=== PATIENT | male | born 1945 | race Caucasian/White ===

== ENCOUNTER 2016-09-14 17:43 | Inpatient (IN) | payer OTHER ==
[~2016-09-14] VITALS: Ht 182.9 cm; Wt 105.3 kg
[~2016-09-14 17:43] MED LIST: AMIO200T4 PO; ASPCH81X PO; FISHOIL PO; FURO40TA3 PO; LISI5TAB PO; LPT/20 PO; METO100T14 PO; MULTTAB58 PO; POLY335019 PO; POTA10CA28 PO; QUET1TAB30 PO; WARF3TAB PO
[2016-09-14] MEDS ORDERED: ONDANSETRON INJ 2 MG/ML 2 ML VIAL IV STA (17:57)
[2016-09-14] MEDS ORDERED: MoRPHine SULFATE 4 MG/ML 1 ML CARP\\VIAL IV PRN (18:00)
[2016-09-14 18:31] LABS: BASO % 0.1 %; BASO ABS # 0.02 K/uL (0-0.2); COMPLETE YES; EOS % 0.1 %; HEMATOCRIT 40.6 % (42-52); IG% 0.3 %; LYMPH % 3.5 %; LYMPH ABS # 0.52 K/uL (1.2-3.4); MEAN CELL VOLUME 83.2 fL (80-100); MEAN CORPUSCULAR HEMOGLOBIN 28.5 pg (25-34); MEAN CORPUSCULAR HGB CONC 34.2 g/dl (32-36); MEAN PLATELET VOLUME 11.2 fL (7.4-10.4); MONO % 3.6 %; NEUT % 92.4 %; PLATELET COUNT 235 K/uL (130-400); RED BLOOD COUNT 4.88 M/uL (4.7-6.1); WHITE BLOOD COUNT 14.73 K/uL (4.8-10.8)
[2016-09-14 18:41] LABS: VEN BLOOD GAS BASE EXCESS 4.1 mmol/L; VENOUS BLOOD GAS PCO2 37 mmHg (38.0-50.0); VENOUS BLOOD GAS PO2 30 mmHg
[2016-09-14 18:42] LABS: VEN BLD GAS O2 SATURATION < 60.0 %
[2016-09-14 18:42] LABS: INR 3.2 (0.9-1.1); PARTIAL THROMBOPLASTIN RATIO 1.3; PROTHROMBIN TIME (PATIENT) 36.2 SECONDS (9.0-12.0)
[2016-09-14 18:49] LABS: ALT/SGPT 22 U/L (12-78); BLOOD UREA NITROGEN 16 mg/dl (7-18); BUN/CREATININE RATIO 12.1 (10-20); CALCIUM 9.1 mg/dl (8.5-10.1); CARBON DIOXIDE 30 mmol/L (21-32); CHLORIDE 101 mmol/L (98-107); GLUCOSE 144 mg/dl (70-99); MAGNESIUM 1.7 mg/dl (1.8-2.4); POTASSIUM 3.2 mmol/L (3.5-5.1); SODIUM 139 mmol/L (136-145)
--- NOTE | 2016-09-14 18:51 | DIAGNOSTIC IMAGING REPORT ---
CT HEAD WITHOUT CONTRAST (CT) CLINICAL HISTORY: Altered mental status. Weakness. COMPARISON STUDY: No previous studies for comparison. TECHNIQUE: Axial CT of the brain is performed from the vertex to the skull base. IV contrast was not administered for this examination. CT DOSE: 884.08 mGy.cm FINDINGS: No intra or extra-axial mass lesions are visualized. There is no CT evidence of acute cortical infarction. There is no evidence of midline shift. There is no acute hemorrhage. No calvarial fractures are visualized. There are patchy white matter hypodensities likely on a small vessel basis. There is no evidence of pathologic ventricular dilatation. There is minor right maxilla sinus mucosal thickening. There is no evidence of acute sinusitis. IMPRESSION: No acute intracranial findings Electronically signed by: Franko Jaramillo M.D. 09/14/2016 6:49 PM Dictated Date/Time: 09/14/2016 6:49 PM
[2016-09-14 18:58] LABS: ALKALINE PHOSPHATASE 89 U/L (45-117); AST/SGOT 19 U/L (15-37); CKMB/CK RATIO 2.7 (0-3.0); PHOSPHORUS 1.7 mg/dl (2.5-4.9); THYROID STIMULATING HORMONE 0.956 uIu/ml (0.300-4.500)
[2016-09-14] MEDS ORDERED: CRD200 PO (19:02)
[2016-09-14] MEDS ORDERED: POTA-65 PO (19:02)
[2016-09-14] MEDS ORDERED: WARF-285 PO ×2 (19:02)
[2016-09-14] MEDS ORDERED: LSN5 PO (19:02)
[2016-09-14] MEDS ORDERED: LSX40 PO (19:02)
[2016-09-14] MEDS ORDERED: MRLP527 PO (19:02)
[2016-09-14] MEDS ORDERED: [UNRECOGNIZED DRUG - CODE] PO (19:02)
[2016-09-14] MEDS ORDERED: AMOX500C3 PO (19:02)
[2016-09-14] MEDS ORDERED: QUET5TAB PO (19:02)
[2016-09-14] MEDS ORDERED: LEVO25TA5 PO (19:02)
[2016-09-14] MEDS ORDERED: OMEGCAP2 PO (19:04)
[2016-09-14] MEDS ORDERED: MAGNESIUM SULFATE 1GM / D5W 1 GM BAG IV STA (19:13)
[2016-09-14] MEDS ORDERED: LEVAQUIN 750MG / 150ML D5W IV STA (19:13)
--- NOTE | 2016-09-14 19:30 | DIAGNOSTIC IMAGING REPORT ---
CHEST ONE VIEW PORTABLE CLINICAL HISTORY: Altered mental status. Weakness. Vomiting. COMPARISON STUDY: 03/28/2016 FINDINGS: The heart is enlarged. There is aortic tortuosity/ectasia. There are progressive bibasal airspace opacities. Mild pulmonary vascular congestion[ is suspected. Trace pleural effusions are suspected IMPRESSION: 1. Cardiomegaly and mild pulmonary vascular congestion 2. Progressive bibasal airspace opacities. Electronically signed by: Franko Jaramillo M.D. 09/14/2016 7:29 PM Dictated Date/Time: 09/14/2016 7:27 PM
[2016-09-14] MEDS ORDERED: SODIUM CHLORIDE 0.9% 1000ML 1,000 ML IV STA (19:32)
--- NOTE | 2016-09-14 19:34 | DIAGNOSTIC IMAGING REPORT ---
KUB CLINICAL HISTORY: vomiting WEAKNESS COMPARISON STUDY: No previous studies for comparison. FINDINGS: There is gaseous distention of what probably represents the sigmoid colon. There is mild fecal retention. There is no conventional radiographic evidence of a high-grade bowel obstruction. There are left basilar airspace opacities. There is a small right pleural effusion. IMPRESSION: Gaseous distention what is probably the sigmoid colon measuring up to 9.6 cm in diameter. Electronically signed by: Franko Jaramillo M.D. 09/14/2016 7:33 PM Dictated Date/Time: 09/14/2016 7:30 PM
[2016-09-14 20:35] LABS: INFLUENZA A PCR Neg for Influ A (NEG); INFLUENZA B PCR Neg for Influ B (NEG)
--- NOTE | 2016-09-14 20:43 | History and Physical ---
History & Physical Date & Time of Service: Sep 14, 2016 at 20:24 Chief Complaint: Vomiting Primary Care Physician: Emigdio Lao M.D. History of Present Illness Source: patient, spouse 71 yo M with PAF on coumadin, CAD and HTN who presents with one week of generalized weakness and cough with worsening fatigue this morning that progressed throughout the day today. Today he developed fevers, chills, nausea and vomiting that was intermittent, shortness of breath and headache. 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 He denies any diarrhea and currently says the BAUTISTA is gone and he is feeling better. In the ER his vitals were 198/115, P 95, RR 21 satting 93% on 3L NC. He states that he did take his BP pills today. He also is not on oxygen typically and during triage was found to be hypoxic at 85% on room air. CXR is consistent with pneumonia. He also reports a medication change--started Synthroid two weeks ago. Past Medical/Surgical History Medical Problems: (1) Atrial fibrillation Status: Chronic (2) BPH (benign prostatic hypertrophy) Status: Chronic (3) CAD (coronary artery disease) Status: Chronic (4) External hemorrhoids Status: Chronic (5) Hemangioma of liver Status: Chronic (6) Hemorrhagic Stroke Status: Resolved (7) Hemorrhoidectomy Status: Resolved (8) HTN (hypertension) Status: Chronic (9) Hyperlipidemia Status: Chronic (10) Hypothyroidism Status: Chronic (11) PAF (paroxysmal atrial fibrillation) Status: Chronic (12) Sleep disorder Status: Chronic Surgical Problems: (1) History of aortic root repair Status: Resolved (2) History of prostate surgery Status: Resolved Family History Diabetes mellitus Heart disease Hypertension Father of electrolyte abnormality, mother from complications of DMII Social History Smoking Status: Former Smoker Smokeless Tobacco Use: Unknown Alcohol Use: socially Drug Use: none Marital Status: Housing status: lives with significant other Occupational Status: retired Immunizations History of Influenza Vaccine: No History of Tetanus Vaccine?: Yes Tetanus Immunization Date: Jul 21, 2009 History of Pneumococcal: Yes Pneumococcal Date: Aug 07, 2012 History of Hepatitis B Vaccine: No Multi-Drug Resistant Organisms History of MDRO: No Allergies Coded Allergies: No Known Allergies (Unverified , 09/14/16) Home Medications Scheduled Amiodarone HCl (Amiodarone HCl), 200 MG PO DAILY Aspirin (Aspirin Low Dose), 162 MG PO DAILY Atorvastatin (Atorvastatin Calcium), 20 MG PO DAILY Furosemide (Furosemide), 40 MG PO DAILY Levothyroxine Sodium (Levothyroxine Sodium), 25 MCG PO DAILY Lisinopril (Lisinopril), 5 MG PO DAILY Metoprolol Tartrate (Lopressor) (Lopressor), 100 MG PO BID Multiple Vitamin (Multivitamin), 1 TABLET PO DAILY [place]ow-3 Fatty Acids (Fish Oil), 1 CAP PO DAILY Potassium Chloride (Potassium Chloride ER), 10 MEQ PO BID Quetiapine Fumarate (Seroquel), 50 MG PO HS Warfarin Sodium (Warfarin Sodium), 3 MG PO 5XWK Warfarin Sodium (Warfarin Sodium), 1.5 MG PO 2XWK Scheduled PRN Amoxicillin (Amoxil), 2,000 MG PO UD PRN for Dental Appointment Polyethylene (Polyethylene Glycol 3350), 17 GM PO DAILY PRN for Constipation Review of Systems All reviewed and negative except as indicated in HPI. Physical Exam Vital Signs Date Time Temp Pulse Resp B/P Pulse Ox O2 Delivery O2 Flow Rate FiO2 09/14/16 18:50 95 21 178/101 93 Nasal Cannula 3.0 09/14/16 18:21 92 Nasal Cannula 3.0 09/14/16 18:20 85 Room Air 09/14/16 18:10 88 09/14/16 17:47 37.9 100 24 198/115 90 Room Air GEN: WNWD, in no acute distress, alert and appropriate, oxygen in place, no conversational dyspnea or use of accessory respiratory muscles to breathe HEENT: NC/AT, PERRL, normal sclerae, pharynx nonacute, no cervical LAD CARDIO: reg rate, S1/2 heard without m/g/r LUNGS: CTA bilaterally, rhonchi at bases bilaterally, no rales or wheezes, good diaphragmatic excursion ABD: soft, non-tender, non-distended, no rebound or guarding, +BS EXTREMITY: no LE swelling or edema, extremities are warm and well-perfused NEURO: CN 2-12 grossly intact, sensation intact throughout MUSC: 5/5 strength throughout, no gross focal deficits SKIN: warm and dry Diagnostics Laboratory Results Results Past 24 Hours Test 09/14/16 18:14 09/14/16 18:18 09/14/16 18:23 09/14/16 18:28 Range/Units Bedside Glucose 124 70-99 mg/dl White Blood Count 14.73 4.8-10.8 K/uL Red Blood Count 4.88 4.7-6.1 M/uL Hemoglobin 13.9 14.0-18.0 g/dL Hematocrit 40.6 42-52 % Mean Corpuscular Volume 83.2 80-100 fL Mean Corpuscular Hemoglobin 28.5 25-34 pg Mean Corpuscular Hemoglobin Concent 34.2 32-36 g/dl Platelet Count 235 130-400 K/uL Mean Platelet Volume 11.2 7.4-10.4 fL Neutrophils (%) (Auto) 92.4 % Lymphocytes (%) (Auto) 3.5 % Monocytes (%) (Auto) 3.6 % Eosinophils (%) (Auto) 0.1 % Basophils (%) (Auto) 0.1 % Neutrophils # (Auto) 13.60 1.4-6.5 K/uL Lymphocytes # (Auto) 0.52 1.2-3.4 K/uL Monocytes # (Auto) 0.53 0.11-0.59 K/uL Eosinophils # (Auto) 0.01 0-0.5 K/uL Basophils # (Auto) 0.02 0-0.2 K/uL RDW Standard Deviation 45.9 36.4-46.3 fL RDW Coefficient of Variation 15.0 11.5-14.5 % Immature Granulocyte % (Auto) 0.3 % Immature Granulocyte # (Auto) 0.05 0.00-0.02 K/uL Prothrombin Time 36.2 9.0-12.0 SECONDS Prothromb Time International Ratio 3.2 0.9-1.1 Activated Partial Thromboplast Time 32.5 21.0-31.0 SECONDS Partial Thromboplastin Ratio 1.3 Sodium Level 139 136-145 mmol/L Potassium Level 3.2 3.5-5.1 mmol/L Chloride Level 101 98-107 mmol/L Carbon Dioxide Level 30 21-32 mmol/L Anion Gap 8.0 3-11 mmol/L Blood Urea Nitrogen 16 7-18 mg/dl Creatinine 1.30 0.60-1.40 mg/dl Est Creatinine Clear Calc Drug Dose 64.0 ml/min Estimated GFR () 62.7 Estimated GFR (Non- 54.1 BUN/Creatinine Ratio 12.1 10-20 Random Glucose 144 70-99 mg/dl Calcium Level 9.1 8.5-10.1 mg/dl Phosphorus Level 1.7 2.5-4.9 mg/dl Magnesium Level 1.7 1.8-2.4 mg/dl Total Bilirubin 0.6 0.2-1 mg/dl Direct Bilirubin 0.2 0-0.2 mg/dl Aspartate Amino Transf (AST/SGOT) 19 15-37 U/L Alanine Aminotransferase (ALT/SGPT) 22 12-78 U/L Alkaline Phosphatase 89 45-117 U/L Total Creatine Kinase 86 39-308 U/L Creatine Kinase MB 2.3 0.5-3.6 ng/ml Creatine Kinase MB Ratio 2.7 0-3.0 Troponin I < 0.015 0-0.045 ng/ml Pro-B-Type Natriuretic Peptide 904 0-900 pg/ml Total Protein 7.3 6.4-8.2 gm/dl Albumin 3.9 3.4-5.0 gm/dl Lipase 99 73-393 U/L Thyroid Stimulating Hormone (TSH) 0.956 0.300-4.500 uIu/ml Bedside Lactic Acid Venous 2.04 0.90-1.70 mmol/L Venous Blood pH 7.49 7.36-7.41 Venous Blood Partial Pressure CO2 37 38.0-50.0 mmHg Venous Blood Partial Pressure O2 30 mmHg Venous Blood HCO3 27 mmol/L Venous Blood Oxygen Saturation < 60.0 % Venous Blood Base Excess 4.1 mmol/L Test 09/14/16 18:30 Range/Units Influenza Type A Antigen Neg for Influ A NEG Influenza Type B Antigen Neg for Influ B NEG Microbiology Results 09/14/16 Blood Culture, Received Pending 09/14/16 Blood Culture, Received Pending Diagnostic Radiology CXR: IMPRESSION: 1. Cardiomegaly and mild pulmonary vascular congestion 2. Progressive bibasal airspace opacities. CT head without contrast: IMPRESSION: No acute intracranial findings KUB: IMPRESSION: Gaseous distention what is probably the sigmoid colon measuring up to 9.6 cm in diameter. EKG SR, 1AVB, no ST changes Impression Assessment and Plan 71 yoM with 1 week of progressive weakness and cough with worsening of symptoms today. Clinical picture consistent with sepsis 2/2 pneumonia 1. CAP- Sepsis criteria met, s/p resuscitation and feeling better in ER. Lactate >2, will trend in 6 hours. Cont IVF as patient appears clinically dry. Levaquin started in ER and will be continued. Supportive care with antiemetics and antipyretics as needed. Monitor on tele. flu PCR pending 2. Electrolyte abnormalities- 2.2 acute illness. Of note, father " from electrolyte issues". Will replace Phos, Mg and K at this time and repeat PRP in am. 3. Hypertensive urgency-patient reports taking his BP meds today. May be related to stress of being admitted. Will support with IV hydralazine at this time, and cont PO meds in am. 4. Acute gastritis-vomiting may be related to pneumonia, however, he did mention some vomiting last week so may be a separate process. Possible aspiration causing current pneumonia?. Consider changing abx for more anaerobe coverage if patient doesn't improve on current therapy. 5. PAF-cont coumadin, supratherapeutic INR at this time. Trend INR 6. CAD 7. Sleep disorder-cont Seroquel 8. Hypothroidism-cont Synthroid DVT proph-coumadin Full Code Dispo-to tele floor Miladys Rowe, Hospitalist Level of Care Telemetry Resuscitation Status FULL RESUSCITATION VTE Prophylaxis VTE Risk Assessment Done? Y/N: Yes Risk Level: Moderate Given or contraindicated: Warfarin (Coumadin)
[2016-09-14] MEDS ORDERED: INFLUENZA VIRUS QUAD VACCINE 0.5 ML SYR IM. ONE ×2 (20:45→22:30)
[2016-09-14] MEDS ORDERED: POLYETHYLENE (MIRALAX) 17 GM PACK PO PRN (20:45)
[2016-09-14] MEDS ORDERED: ACETAMINOPHEN 325 MG TAB PO PRN (20:45)
[2016-09-14] MEDS ORDERED: ONDANSETRON INJ 2 MG/ML 2 ML VIAL IV PRN (20:45)
[2016-09-14] MEDS ORDERED: POTASSIUM CHLORIDE 20 MEQ/15 ML UDC PO STA (20:50)
[2016-09-14] MEDS ORDERED: HydrALAZINE HCL 20 MG/ML VIAL IV. PRN (21:00)
--- NOTE | 2016-09-14 21:02 | Progress Note ---
Progress Note Post Crystalloid Evaluation Date: Sep 14, 2016 Time: 20:58 Subjective 71 yo man with one week of progressive SOB and cough, with worsening of symptoms today including vomiting, fevers, chills and SOB. Physical Exam Vital Signs: Vital Signs Date Time Temp Pulse Resp B/P Pulse Ox O2 Delivery O2 Flow Rate FiO2 09/14/16 18:50 95 21 178/101 93 Nasal Cannula 3.0 09/14/16 17:47 37.9 Lungs: chest non-tender, no respiratory distress, no accessory muscle use, + rhonchi, + pertinent finding (requiring 3L via NC) Heart: regular rate, rhythm, no edema, no gallop, no JVD, no murmur Peripheral Pulse: Normal Assessment & Plan CAP -IVF resuscitation in ER -Levaquin started -patient feeling improved. -lactate >2 so will trend in 6 hours with continued IVF -lyte abnormalities--will give replacement now -procalcitonin pending -flu pending -sputum and blood cultures pending -Duonebs for comfort as needed. -monitor on telemetry while hypoxic Miladys Rowe DO Hospitalist
[2016-09-14] MEDS ORDERED: HydrALAZINE HCL 20 MG/ML VIAL IV. STA (21:10)
[2016-09-14] MEDS ORDERED: POTASSIUM PHOSPHATE IV SCH ×4 (22:00)
[2016-09-14] MEDS ORDERED: [UNRECOGNIZED DRUG - OTHER] IV SCH ×4 (22:00)
[2016-09-14] MEDS ORDERED: MAG SULFATE IV SCH ×4 (22:00)
[2016-09-14 22:21] VITALS: BP 149/84; PULSE 92; TEMP 37.3; O2SAT 93; Ht 182.9 cm; Wt 105.3 kg
[2016-09-14] MEDS ORDERED: INFLUENZA ADMINISTRATION CHARGE ONE (22:30)
[2016-09-14 23:19] VITALS: BP 123/79; PULSE 87; TEMP 37.1; O2SAT 95
[2016-09-14] MEDS: METOPROLOL TARTRATE 100 MG TAB PO SCH (23:34)
[2016-09-14] MEDS: QUETIAPINE FUMARATE 25 MG TAB PO SCH (23:34)
[2016-09-14] MEDS: POTASSIUM CHLORIDE 10 MEQ TABCR PO SCH (23:34)
[2016-09-15] VITALS (12 sets, daily range): BP systolic 95–149; BP diastolic 59–86; PULSE 59–76; TEMP 36.4–37; O2SAT 92–98
[2016-09-15] MEDS: LEVOTHYROXINE 25 MCG TAB PO SCH (06:03)
[2016-09-15 06:14] LABS: BASO % 0.1 %; BASO ABS # 0.02 K/uL (0-0.2); COMPLETE YES; EOS % 0.1 %; HEMATOCRIT 36.2 % (42-52); IG% 0.2 %; LYMPH % 4.7 %; LYMPH ABS # 0.75 K/uL (1.2-3.4); MEAN CELL VOLUME 84.4 fL (80-100); MEAN CORPUSCULAR HEMOGLOBIN 28.2 pg (25-34); MEAN CORPUSCULAR HGB CONC 33.4 g/dl (32-36); MEAN PLATELET VOLUME 11.2 fL (7.4-10.4); MONO % 6.9 %; PLATELET COUNT 176 K/uL (130-400); RED BLOOD COUNT 4.29 M/uL (4.7-6.1); WHITE BLOOD COUNT 15.97 K/uL (4.8-10.8)
[2016-09-15 06:21] LABS: INR 3.4 (0.9-1.1); PROTHROMBIN TIME (PATIENT) 37.8 SECONDS (9.0-12.0)
[2016-09-15] MEDS ORDERED: SODIUM CHLORIDE 0.9% 1000ML 1,000 ML IV SCH (06:36)
[2016-09-15 06:51] LABS: BUN/CREATININE RATIO 14.4 (10-20); CREATININE 1.1 mg/dl (0.60-1.40); MAGNESIUM 2.9 mg/dl (1.8-2.4); POTASSIUM 4.6 mmol/L (3.5-5.1)
[2016-09-15 06:52] LABS: PHOSPHORUS 4.1 mg/dl (2.5-4.9)
[2016-09-15] MEDS: ALBUT/IPRATROP 3MG/0.5MG NEB 3 ML VIAL INH SCH ×4 (07:20→20:35)
[2016-09-15] MEDS: ASPIRIN 81 MG ECTAB PO SCH (07:52)
[2016-09-15] MEDS: AMIODARONE 200 MG TAB PO SCH (07:52)
[2016-09-15] MEDS: METOPROLOL TARTRATE 100 MG TAB PO SCH ×2 (07:53→19:49)
[2016-09-15] MEDS: OMEGA-3 (PURIFIED FISH OIL) 1 GM CAP PO SCH (07:53)
[2016-09-15] MEDS: POTASSIUM CHLORIDE 10 MEQ TABCR PO SCH ×2 (07:53→19:49)
[2016-09-15] MEDS: MULTIVITAMIN TAB PO SCH (07:53)
[2016-09-15] MEDS: LISINOPRIL 5 MG TAB PO SCH (07:55)
[2016-09-15] MEDS ORDERED: NURSING VERBAL MED ORDER ONE (09:00)
[2016-09-15] MEDS ORDERED: ATORVASTATIN 20 MG TAB PO SCH ×2 (09:00→21:00)
[2016-09-15 09:45] LABS: URINE APPEARANCE CLOUDY (CLEAR); URINE BILIRUBIN NEG (NEG); URINE COLOR YELLOW; URINE NITRITE NEG (NEG); URINE SPECIFIC GRAVITY 1.019 (1.000-1.030); UROBILINOGEN NEG (NEG)
[2016-09-15 09:46] LABS: MANUAL MICROSCOPIC REQUIRED? NO; REVIEW REQ? NO
--- NOTE | 2016-09-15 15:35 | Progress Note ---
Internal Med Progress Note Date of Service: Sep 15, 2016. Provider Documentation: SUBJECTIVE: The patient was seen and examined Feels a lot better since admission Complains of moderate Cough No wheezing OBJECTIVE: Vital Signs-as noted below Exam: General-no distress at rest Eyes-normal ENT-normal Neck-supple Lungs-Decreased breath sound bilaterally Minimal wheezing Heart-regular Abdomen-Benign,no masses Extremities-No edema Neuro-AAox3 No focal neuro deficit Lab data as noted below. ASSESSMENT & PLAN: CAP Met Sepsis criteria on Admission Received Fluid Resuscitation and lactate measurement as per the protocol Feels a lot better On IV Levaquin Nebs Negative for Flu Sputum culture pending Electrolyte abnormalities- 2.2 acute illness. Replacement given Normalized Hypertensive urgency IV hydralazine at this time, and cont PO meds in am. BP is on the lower side Acute gastritis-vomiting may be related to pneumonia, PPI No more vomiting PAF-cont Coumadin, subtherapeutic INR at this time. Trend INR CAD No acute issue Sleep disorder-cont Seroquel Hypothyroidism-cont Synthroid DVT proph-Coumadin Full Code DISPOSITION awaited Vital Signs: Date Time Temp Pulse Resp B/P Pulse Ox O2 Delivery O2 Flow Rate FiO2 09/15/16 14:48 59 18 96 Room Air 09/15/16 12:00 Nasal Cannula 3.0 09/15/16 12:00 36.9 61 18 95/59 92 Nasal Cannula 2.0 09/15/16 11:32 60 18 97 Nasal Cannula 2.0 09/15/16 10:54 76 94 09/15/16 08:00 Nasal Cannula 3.0 09/15/16 08:00 36.5 67 16 137/79 95 Nasal Cannula 3.0 09/15/16 07:20 65 18 98 Nasal Cannula 3.0 09/15/16 04:53 37.0 68 20 149/86 97 Nasal Cannula 3.0 09/15/16 04:45 37.0 68 20 149/86 98 Nasal Cannula 3.0 09/15/16 04:00 Nasal Cannula 3.0 09/15/16 00:00 Nasal Cannula 3.0 09/14/16 23:19 37.1 87 20 123/79 95 Room Air 3.0 09/14/16 22:21 37.3 92 18 149/84 93 Nasal Cannula 3.0 09/14/16 20:50 80 18 138/84 96 Nasal Cannula 3.0 09/14/16 18:50 95 21 178/101 93 Nasal Cannula 3.0 09/14/16 18:21 92 Nasal Cannula 3.0 09/14/16 18:20 85 Room Air 09/14/16 18:10 88 09/14/16 17:47 37.9 100 24 198/115 90 Room Air Lab Results: Results Past 24 Hours Test 09/14/16 18:14 09/14/16 18:18 09/14/16 18:23 09/14/16 18:28 Range/Units Bedside Glucose 124 70-99 mg/dl White Blood Count 14.73 4.8-10.8 K/uL Red Blood Count 4.88 4.7-6.1 M/uL Hemoglobin 13.9 14.0-18.0 g/dL Hematocrit 40.6 42-52 % Mean Corpuscular Volume 83.2 80-100 fL Mean Corpuscular Hemoglobin 28.5 25-34 pg Mean Corpuscular Hemoglobin Concent 34.2 32-36 g/dl Platelet Count 235 130-400 K/uL Mean Platelet Volume 11.2 7.4-10.4 fL Neutrophils (%) (Auto) 92.4 % Lymphocytes (%) (Auto) 3.5 % Monocytes (%) (Auto) 3.6 % Eosinophils (%) (Auto) 0.1 % Basophils (%) (Auto) 0.1 % Neutrophils # (Auto) 13.60 1.4-6.5 K/uL Lymphocytes # (Auto) 0.52 1.2-3.4 K/uL Monocytes # (Auto) 0.53 0.11-0.59 K/uL Eosinophils # (Auto) 0.01 0-0.5 K/uL Basophils # (Auto) 0.02 0-0.2 K/uL RDW Standard Deviation 45.9 36.4-46.3 fL RDW Coefficient of Variation 15.0 11.5-14.5 % Immature Granulocyte % (Auto) 0.3 % Immature Granulocyte # (Auto) 0.05 0.00-0.02 K/uL Prothrombin Time 36.2 9.0-12.0 SECONDS Prothromb Time International Ratio 3.2 0.9-1.1 Activated Partial Thromboplast Time 32.5 21.0-31.0 SECONDS Partial Thromboplastin Ratio 1.3 Sodium Level 139 136-145 mmol/L Potassium Level 3.2 3.5-5.1 mmol/L Chloride Level 101 98-107 mmol/L Carbon Dioxide Level 30 21-32 mmol/L Anion Gap 8.0 3-11 mmol/L Blood Urea Nitrogen 16 7-18 mg/dl Creatinine 1.30 0.60-1.40 mg/dl Est Creatinine Clear Calc Drug Dose 64.0 ml/min Estimated GFR () 62.7 Estimated GFR (Non- 54.1 BUN/Creatinine Ratio 12.1 10-20 Random Glucose 144 70-99 mg/dl Calcium Level 9.1 8.5-10.1 mg/dl Phosphorus Level 1.7 2.5-4.9 mg/dl Magnesium Level 1.7 1.8-2.4 mg/dl Total Bilirubin 0.6 0.2-1 mg/dl Direct Bilirubin 0.2 0-0.2 mg/dl Aspartate Amino Transf (AST/SGOT) 19 15-37 U/L Alanine Aminotransferase (ALT/SGPT) 22 12-78 U/L Alkaline Phosphatase 89 45-117 U/L Total Creatine Kinase 86 39-308 U/L Creatine Kinase MB 2.3 0.5-3.6 ng/ml Creatine Kinase MB Ratio 2.7 0-3.0 Troponin I < 0.015 0-0.045 ng/ml Pro-B-Type Natriuretic Peptide 904 0-900 pg/ml Total Protein 7.3 6.4-8.2 gm/dl Albumin 3.9 3.4-5.0 gm/dl Lipase 99 73-393 U/L Thyroid Stimulating Hormone (TSH) 0.956 0.300-4.500 uIu/ml Bedside Lactic Acid Venous 2.04 0.90-1.70 mmol/L Venous Blood pH 7.49 7.36-7.41 Venous Blood Partial Pressure CO2 37 38.0-50.0 mmHg Venous Blood Partial Pressure O2 30 mmHg Venous Blood HCO3 27 mmol/L Venous Blood Oxygen Saturation < 60.0 % Venous Blood Base Excess 4.1 mmol/L Test 09/14/16 18:30 09/14/16 23:24 09/15/16 06:03 09/15/16 09:30 Range/Units Influenza Type A (RT-PCR) Neg for Influ A NEG Influenza Type A Antigen Neg for Influ A NEG Influenza Type B Antigen Neg for Influ B NEG Influenza Type B (RT-PCR) Neg for Influ B NEG Lactic Acid Level 1.4 0.4-2.0 mmol/L White Blood Count 15.97 4.8-10.8 K/uL Red Blood Count 4.29 4.7-6.1 M/uL Hemoglobin 12.1 14.0-18.0 g/dL Hematocrit 36.2 42-52 % Mean Corpuscular Volume 84.4 80-100 fL Mean Corpuscular Hemoglobin 28.2 25-34 pg Mean Corpuscular Hemoglobin Concent 33.4 32-36 g/dl Platelet Count 176 130-400 K/uL Mean Platelet Volume 11.2 7.4-10.4 fL Neutrophils (%) (Auto) 88.0 % Lymphocytes (%) (Auto) 4.7 % Monocytes (%) (Auto) 6.9 % Eosinophils (%) (Auto) 0.1 % Basophils (%) (Auto) 0.1 % Neutrophils # (Auto) 14.06 1.4-6.5 K/uL Lymphocytes # (Auto) 0.75 1.2-3.4 K/uL Monocytes # (Auto) 1.10 0.11-0.59 K/uL Eosinophils # (Auto) 0.01 0-0.5 K/uL Basophils # (Auto) 0.02 0-0.2 K/uL RDW Standard Deviation 48.0 36.4-46.3 fL RDW Coefficient of Variation 15.5 11.5-14.5 % Immature Granulocyte % (Auto) 0.2 % Immature Granulocyte # (Auto) 0.03 0.00-0.02 K/uL Prothrombin Time 37.8 9.0-12.0 SECONDS Prothromb Time International Ratio 3.4 0.9-1.1 Sodium Level 143 136-145 mmol/L Potassium Level 4.6 3.5-5.1 mmol/L Chloride Level 108 98-107 mmol/L Carbon Dioxide Level 27 21-32 mmol/L Anion Gap 8.0 3-11 mmol/L Blood Urea Nitrogen 16 7-18 mg/dl Creatinine 1.10 0.60-1.40 mg/dl Est Creatinine Clear Calc Drug Dose 74.9 ml/min Estimated GFR () 76.8 Estimated GFR (Non- 66.2 BUN/Creatinine Ratio 14.4 10-20 Random Glucose 101 70-99 mg/dl Calcium Level 8.0 8.5-10.1 mg/dl Phosphorus Level 4.1 2.5-4.9 mg/dl Magnesium Level 2.9 1.8-2.4 mg/dl Urine Color YELLOW Urine Appearance CLOUDY CLEAR Urine pH 6.0 4.5-7.5 Urine Specific [place] 1.019 1.000-1.030 Urine Protein NEG NEG Urine Glucose (UA) NEG NEG Urine Ketones NEG NEG Urine Occult Blood NEG NEG Urine Nitrite NEG NEG Urine Bilirubin NEG NEG Urine Urobilinogen NEG NEG Urine Leukocyte Esterase NEG NEG Urine WBC (Auto) 1-5 0-5 /hpf Urine RBC (Auto) 0-4 0-4 /hpf Urine Hyaline Casts (Auto) 0 0-5 /lpf Urine Epithelial Cells (Auto) 5-10 0-5 /lpf Urine Bacteria (Auto) NEG NEG Microbiology Results 09/14/16 Blood Culture, Received Pending 09/14/16 Blood Culture, Received Pending 09/15/16 Gram Stain - Final, Resulted 09/15/16 Sputum Culture, Resulted Pending
[2016-09-15] MEDS: WARFARIN SOD 3 MG TAB PO SCH (15:48)
--- NOTE | 2016-09-15 16:27 | EMERGENCY ROOM VISIT NOTE ---
History Report prepared by Linus: Shante Goddard Under the Supervision of: Dr. Asaf Kaufman D.O. First contact with patient: 17:53 Chief Complaint: VOMITING Stated Complaint: VOMITING Nursing Triage Summary: Pt c/o n/v SOB x "an hour or so" History of Present Illness The patient is a 71 year old male who presents to the Emergency Room via significant other with complaints of worsening shortness of breath that began two hours ago. This afternoon, the patient started to have a sudden headache, feeling as if his head would "explode." His headache was towards the front of his head, and he relates that he has had similar headaches in the past. He tried lying on the couch, when he felt as if he was very short of breath and could not breathe. The patient describes that he had to take very deep breaths. The patient vomited on his way to the hospital. The patient has had some pain in his legs. One day ago, he noticed that he had a fever. He states that movement makes his dizziness worse. The patient has a history of chronic bloody stools. The patient denies falling down, hitting his head, chest pain, swelling in his legs, a history of smoking. He notes that he has a history of heart attack, open heart surgery, and that he takes Warfarin. Source of History: patient Onset: 2 hours ago Position: chest Quality: other (shortnes of breath) Timing: worsening Modifying Factors (Worsening): movement Associated Symptoms: + cough, + fevers (one day ago ), + headache, + vomiting, No chest pain Note: The patient has had some pain in his legs. The patient denies falling down, hitting his head, swelling in his legs. Review of Systems See HPI for pertinent positives & negatives. A total of 10 systems reviewed and were otherwise negative. Past Medical & Surgical Medical Problems: (1) Atrial fibrillation (2) BPH (benign prostatic hypertrophy) (3) CAD (coronary artery disease) (4) Community acquired pneumonia (5) External hemorrhoids (6) Hemangioma of liver (7) Hemorrhagic Stroke (8) Hemorrhoidectomy (9) HTN (hypertension) (10) Hyperlipidemia (11) Hypothyroidism (12) PAF (paroxysmal atrial fibrillation) (13) Sleep disorder Surgical Problems: (1) History of aortic root repair (2) History of prostate surgery Family History Diabetes mellitus Heart disease Hypertension Social History Smoking Status: Former Smoker Alcohol Use: occasionally Marital Status: Housing Status: lives with family Occupation Status: retired Current/Historical Medications Scheduled Amiodarone HCl (Amiodarone HCl), 200 MG PO DAILY Aspirin (Aspirin Low Dose), 162 MG PO DAILY Atorvastatin (Atorvastatin Calcium), 20 MG PO DAILY Furosemide (Furosemide), 40 MG PO DAILY Levothyroxine Sodium (Levothyroxine Sodium), 25 MCG PO DAILY Lisinopril (Lisinopril), 5 MG PO DAILY Metoprolol Tartrate (Lopressor) (Lopressor), 100 MG PO BID Multiple Vitamin (Multivitamin), 1 TABLET PO DAILY [place]-3 Fatty Acids (Fish Oil), 1 CAP PO DAILY Potassium Chloride (Potassium Chloride ER), 10 MEQ PO BID Quetiapine Fumarate (Seroquel), 50 MG PO HS Warfarin Sodium (Warfarin Sodium), 3 MG PO 5XWK Warfarin Sodium (Warfarin Sodium), 1.5 MG PO 2XWK Scheduled PRN Amoxicillin (Amoxil), 2,000 MG PO UD PRN for Dental Appointment Polyethylene (Polyethylene Glycol 3350), 17 GM PO DAILY PRN for Constipation Allergies Coded Allergies: No Known Allergies (Unverified , 09/14/16) Physical Exam Vital Signs Date Time Temp Pulse Resp B/P Pulse Ox O2 Delivery O2 Flow Rate FiO2 09/14/16 18:50 95 21 178/101 93 Nasal Cannula 3.0 09/14/16 18:21 92 Nasal Cannula 3.0 09/14/16 18:20 85 Room Air 09/14/16 18:10 88 09/14/16 17:47 37.9 100 24 198/115 90 Room Air Physical Exam GENERAL: Patient is awake alert, very anxious and uncomfortable appearing, appears to be in significant pain. EYES: The conjunctivae are clear. The pupils are round and reactive. EARS, NOSE, MOUTH AND THROAT: The nose is without any evidence of any deformity. Mucous membranes are moist tongue is midline NECK: The neck is nontender and supple. RESPIRATORY: Lung sounds are diminished throughout, scattered rhonchi and rales noted, no conversational dyspnea was noted. CARDIOVASCULAR: Regular rate and rhythm noted to auscultation, systolic murmur noted. GASTROINTESTINAL: The abdomen is soft. Bowel sounds are present in all quadrants. Abdomen is nontender MUSCULOSKELETAL/EXTREMITIES: There is no evidence of gross deformity full range of motion is noted in the hips and shoulders, pedal edema bilaterally in the lower extremities SKIN: There is no obvious evidence of any rash. There are no petechiae, pallor or cyanosis noted. NEUROLOGIC: Patient is awake alert and oriented x3, no drift was noted in the lower extremities. Medical Decision & Procedures ER Provider Diagnostic Interpretation: Radiology results as stated below per my review and radiologist interpretation: CT HEAD WITHOUT CONTRAST (CT) CLINICAL HISTORY: Altered mental status. Weakness. COMPARISON STUDY: No previous studies for comparison. TECHNIQUE: Axial CT of the brain is performed from the vertex to the skull base. IV contrast was not administered for this examination. CT DOSE: 884.08 mGy.cm FINDINGS: No intra or extra-axial mass lesions are visualized. There is no CT evidence of acute cortical infarction. There is no evidence of midline shift. There is no acute hemorrhage. No calvarial fractures are visualized. There are patchy white matter hypodensities likely on a small vessel basis. There is no evidence of pathologic ventricular dilatation. There is minor right maxilla sinus mucosal thickening. There is no evidence of acute sinusitis. IMPRESSION: No acute intracranial findings Electronically signed by: Franko Jaramillo M.D. 09/14/2016 6:49 PM Dictated Date/Time: 09/14/2016 6:49 PM KUB CLINICAL HISTORY: vomiting WEAKNESS COMPARISON STUDY: No previous studies for comparison. FINDINGS: There is gaseous distention of what probably represents the sigmoid colon. There is mild fecal retention. There is no conventional radiographic evidence of a high-grade bowel obstruction. There are left basilar airspace opacities. There is a small right pleural effusion. IMPRESSION: Gaseous distention what is probably the sigmoid colon measuring up to 9.6 cm in diameter. Electronically signed by: Franko Jaramillo M.D. 09/14/2016 7:33 PM Dictated Date/Time: 09/14/2016 7:30 PM CHEST ONE VIEW PORTABLE CLINICAL HISTORY: Altered mental status. Weakness. Vomiting. COMPARISON STUDY: 03/28/2016 FINDINGS: The heart is enlarged. There is aortic tortuosity/ectasia. There are progressive bibasal airspace opacities. Mild pulmonary vascular congestion[ is suspected. Trace pleural effusions are suspected IMPRESSION: 1. Cardiomegaly and mild pulmonary vascular congestion 2. Progressive bibasal airspace opacities. Electronically signed by: Franko Jaramillo M.D. 09/14/2016 7:29 PM Dictated Date/Time: 09/14/2016 7:27 PM Laboratory Results Test 09/14/16 18:14 09/14/16 18:18 09/14/16 18:23 09/14/16 18:28 Bedside Glucose 124 mg/dl (70-99) Activated Partial Thromboplast Time 32.5 SECONDS (21.0-31.0) Partial Thromboplastin Ratio 1.3 Total Bilirubin 0.6 mg/dl (0.2-1) Direct Bilirubin 0.2 mg/dl (0-0.2) Aspartate Amino Transf (AST/SGOT) 19 U/L (15-37) Alanine Aminotransferase (ALT/SGPT) 22 U/L (12-78) Alkaline Phosphatase 89 U/L (45-117) Total Creatine Kinase 86 U/L (39-308) Creatine Kinase MB 2.3 ng/ml (0.5-3.6) Creatine Kinase MB Ratio 2.7 (0-3.0) Troponin I < 0.015 ng/ml (0-0.045) Pro-B-Type Natriuretic Peptide 904 pg/ml (0-900) Total Protein 7.3 gm/dl (6.4-8.2) Albumin 3.9 gm/dl (3.4-5.0) Lipase 99 U/L (73-393) Thyroid Stimulating Hormone (TSH) 0.956 uIu/ml (0.300-4.500) Bedside Lactic Acid Venous 2.04 mmol/L (0.90-1.70) Venous Blood pH 7.49 (7.36-7.41) Venous Blood Partial Pressure CO2 37 mmHg (38.0-50.0) Venous Blood Partial Pressure O2 30 mmHg Venous Blood HCO3 27 mmol/L Venous Blood Oxygen Saturation < 60.0 % Venous Blood Base Excess 4.1 mmol/L Test 09/14/16 18:30 Influenza Type A (RT-PCR) Neg for Influ A (NEG) Influenza Type A Antigen Neg for Influ A (NEG) Influenza Type B Antigen Neg for Influ B (NEG) Influenza Type B (RT-PCR) Neg for Influ B (NEG) Laboratory results per my review. Medications Administered Medications (Trade) Dose Ordered Sig/Neymar Route Start Time Stop Time Status Last Admin Dose Admin Ondansetron HCl (Zofran Inj) 4 mg NOW STAT IV 09/14/16 17:57 09/14/16 17:59 DC 09/14/16 18:24 4 MG Morphine Sulfate (MoRPHine SULFATE INJ) 4 mg Q15M PRN IV 09/14/16 18:00 09/14/16 22:19 DC 09/14/16 18:25 4 MG Magnesium Sulfate (Magnesium Sulfate) 1 gm NOW STAT IV 09/14/16 19:13 09/14/16 19:14 DC 09/14/16 19:20 1 GM Levofloxacin 750 mg 750 mg NOW STAT IV 09/14/16 19:13 09/14/16 19:14 DC 09/14/16 19:20 750 MG Sodium Chloride (Nss 1000ml) 1,000 ml @ 999 mls/hr Q1H1M STAT IV 09/14/16 19:32 09/14/16 20:32 DC 09/14/16 19:32 999 MLS/HR ECG Indication: SOB/dyspnea Rate (beats per minute): 88 Rhythm: sinus rhythm Findings: 1st degree AV block, ST depression (Lateral), no ectopy Comparison ECG Date: March 28, 2016 Change: no significant change ED Course 175: The patient was evaluated in room A3. A complete history and physical examination were performed. 1756: Zofran 4 mg IV 1800: Morphine Sulfate 4 mg IV 1827: I reevaluated the patient; he is resting comfortably. I discussed results and treatment plan with the patient. He verbalizes agreement and understanding. The patient will be evaluated for further management and care. 1912: Levaquin 750 mg IV, Magnesium Sulfate 1 gm IV 1923: I reevaluated the patient; he is feeling better. 1931: NSS 1,000 ml @ 999 mls/hr IV 1942: I discussed the case with Dr. Rowe ([facility]); she will further evaluate the patient. Medical Decision Differential diagnosis: Etiologies such as infections, reactive airway disease, pneumonia, pneumothorax , COPD, CHF, cardiac ischemia, pulmonary embolism, musculoskeletal, gastrointestinal, as well as others were entertained. Nursing notes reviewed. Additional history is obtained from the patient's significant other. The patient is a 71-year-old male who presented to the emergency department for an evaluation of headache. He was also found have signs of pneumonia on chest x- ray as well as on physical exam. The patient's oxygen saturation was low. He was placed on supplemental oxygen with good relief. The patient was treated with IV fluids IV pain medicine IV antiemetics as well as IV antibiotic. He was reevaluated multiple times. I discussed the patient's laboratory and radiographic studies with him. I also discussed his case with the on-call [facility] hospitalist group. They have agreed to evaluate patient in the emergency department for further management and disposition. Consults Time Called: 1930 Consulting Physician: Dr. Rowe ([facility]) Returned Call: 1933 I discussed the case with Dr. Rowe ([facility]); she will further evaluate the patient. Impression Primary Impression: Pneumonia of both lower lobes Additional Impressions: Hypoxia Hypomagnesemia Headache Scribe Attestation The scribe's documentation has been prepared under my direction and personally reviewed by me in its entirety. I confirm that the note above accurately reflects all work, treatment, procedures, and medical decision making performed by me. Departure Information Dispostion Being Evaluated By Hospitalist Referrals Emigdio Lao M.D. (PCP) Patient Instructions My [facility] Problem Qualifiers Primary Impression: Pneumonia of both lower lobes Pneumonia type: due to unspecified organism Qualified Codes: J18.9 - Pneumonia, unspecified organism Additional Impressions: Headache Headache type: unspecified Headache chronicity pattern: unspecified pattern Intractability: not intractable Qualified Codes: R51 - Headache
[2016-09-15] MEDS: QUETIAPINE FUMARATE 25 MG TAB PO SCH (19:49)
[2016-09-15] MEDS ORDERED: LEVOFLOXACIN / D5W 750 MG in PREMIXED IN D5W 150 ML IV SCH (20:00)
[2016-09-16] VITALS (7 sets, daily range): BP systolic 155–169; BP diastolic 92–96; PULSE 66–71; TEMP 36.5–37.1; O2SAT 93–96
[2016-09-16] MEDS: LEVOTHYROXINE 25 MCG TAB PO SCH (06:03)
[2016-09-16 06:11] LABS: HEMATOCRIT 35.9 % (42-52); MEAN CELL VOLUME 85.9 fL (80-100); MEAN CORPUSCULAR HGB CONC 32.6 g/dl (32-36); MEAN PLATELET VOLUME 11.5 fL (7.4-10.4); PLATELET COUNT 189 K/uL (130-400); RED BLOOD COUNT 4.18 M/uL (4.7-6.1)
[2016-09-16 06:25] LABS: INR 2.9 (0.9-1.1); PROTHROMBIN TIME (PATIENT) 32.1 SECONDS (9.0-12.0)
[2016-09-16 06:39] LABS: BUN/CREATININE RATIO 13.7 (10-20); CALCIUM 8.2 mg/dl (8.5-10.1); CREATININE 1.2 mg/dl (0.60-1.40); MAGNESIUM 2.6 mg/dl (1.8-2.4); POTASSIUM 4.2 mmol/L (3.5-5.1)
[2016-09-16] MEDS: ALBUT/IPRATROP 3MG/0.5MG NEB 3 ML VIAL INH SCH ×3 (07:37→15:21)
[2016-09-16] MEDS: METOPROLOL TARTRATE 100 MG TAB PO SCH (08:24)
[2016-09-16] MEDS: LISINOPRIL 5 MG TAB PO SCH (08:24)
[2016-09-16] MEDS: POTASSIUM CHLORIDE 10 MEQ TABCR PO SCH (08:24)
[2016-09-16] MEDS: ASPIRIN 81 MG ECTAB PO SCH (08:24)
[2016-09-16] MEDS: OMEGA-3 (PURIFIED FISH OIL) 1 GM CAP PO SCH (08:24)
[2016-09-16] MEDS: AMIODARONE 200 MG TAB PO SCH (08:24)
[2016-09-16] MEDS: MULTIVITAMIN TAB PO SCH (08:24)
--- NOTE | 2016-09-16 08:32 | DIAGNOSTIC IMAGING REPORT ---
TWO VIEW CHEST CLINICAL HISTORY: Pneumonia. FINDINGS: PA and lateral chest radiographs are compared to study dated 09/14/2016 and correlated with chest CT dated 10/12/2012. The patient is status post midline sternotomy. The heart is enlarged and there is atherosclerotic calcification of the thoracic aorta. The pulmonary vasculature is noncongested. Chronic interstitial thickening is similar to previous. There is no airspace consolidation typical for pneumonia. A small right pleural effusion is identified and there are bibasilar opacities. There is no pneumothorax. The skeletal structures are osteopenic. 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 IMPRESSION: 1. Cardiomegaly without radiographic evidence of congestive failure. 2. There is a small right pleural effusion and bibasilar opacities. This represent atelectasis and/or and infectious/inflammatory pneumonitis. Clinical correlation will be required. Electronically signed by: Glenn Linder M.D. 09/16/2016 8:31 AM Dictated Date/Time: 09/16/2016 8:28 AM
--- NOTE | 2016-09-16 12:18 | Progress Note ---
Internal Med Progress Note Date of Service: Sep 16, 2016. Provider Documentation: SUBJECTIVE: The patient was seen and examined Feels a lot better since admission Complains of minimal Cough No wheezing Ambulating well OBJECTIVE: Vital Signs-as noted below Exam: General-no distress at rest Eyes-normal ENT-normal Neck-supple Lungs-Decreased breath sound bilaterally No wheezing Heart-regular Abdomen-Benign,no masses Extremities-No edema Neuro-AAox3 No focal neuro deficit Lab data as noted below. ASSESSMENT & PLAN: CAP Met Sepsis criteria on Admission Received Fluid Resuscitation and lactate measurement as per the protocol Feels a lot better On IV Levaquin ,will change to oral to finish 7 days course as an OP Nebs PRN Negative for Flu Sputum culture -heavy normal yakov Repeat CXR negative for any Pneumonia ,Minimal bibasilar atelectasis Electrolyte abnormalities- 2.2 acute illness. Replacement given Normalized Hypertensive urgency IV hydralazine at this time, and cont PO meds in am. BP is on the upper side today Acute gastritis-vomiting may be related to pneumonia, PPI No more vomiting PAF-cont Coumadin, subtherapeutic INR at this time. Trend INR-2.9 today CAD No acute issue Sleep disorder-cont Seroquel Hypothyroidism-cont Synthroid DVT proph-Coumadin Full Code DISPOSITION Discharge this afternoon Vital Signs: Date Time Temp Pulse Resp B/P Pulse Ox O2 Delivery O2 Flow Rate FiO2 09/16/16 11:46 36.8 66 18 169/95 93 Room Air 09/16/16 11:41 66 16 93 Room Air 09/16/16 08:00 Room Air 09/16/16 07:46 36.5 66 20 162/94 94 Room Air 09/16/16 07:38 68 16 96 Room Air 09/16/16 04:00 Room Air 09/16/16 03:52 36.7 66 20 155/92 94 Room Air 09/16/16 00:00 Room Air 09/15/16 23:21 36.7 67 18 136/81 92 Room Air 09/15/16 20:35 67 18 92 Room Air 09/15/16 20:00 Room Air 09/15/16 19:10 36.4 67 20 125/71 94 Room Air 117/69 116/66 09/15/16 16:00 Nasal Cannula 3.0 09/15/16 15:34 36.9 69 20 106/63 93 Room Air 09/15/16 14:48 59 18 96 Room Air Lab Results: Results Past 24 Hours Test 09/16/16 05:21 09/16/16 05:27 Range/Units Sodium Level 142 136-145 mmol/L Potassium Level 4.2 3.5-5.1 mmol/L Chloride Level 108 98-107 mmol/L Carbon Dioxide Level 27 21-32 mmol/L Anion Gap 7.0 3-11 mmol/L Blood Urea Nitrogen 16 7-18 mg/dl Creatinine 1.20 0.60-1.40 mg/dl Est Creatinine Clear Calc Drug Dose 68.7 ml/min Estimated GFR () 69.1 Estimated GFR (Non- 59.6 BUN/Creatinine Ratio 13.7 10-20 Random Glucose 82 70-99 mg/dl Calcium Level 8.2 8.5-10.1 mg/dl Magnesium Level 2.6 1.8-2.4 mg/dl White Blood Count 9.00 4.8-10.8 K/uL Red Blood Count 4.18 4.7-6.1 M/uL Hemoglobin 11.7 14.0-18.0 g/dL Hematocrit 35.9 42-52 % Mean Corpuscular Volume 85.9 80-100 fL Mean Corpuscular Hemoglobin 28.0 25-34 pg Mean Corpuscular Hemoglobin Concent 32.6 32-36 g/dl RDW Standard Deviation 50.6 36.4-46.3 fL RDW Coefficient of Variation 16.1 11.5-14.5 % Platelet Count 189 130-400 K/uL Mean Platelet Volume 11.5 7.4-10.4 fL Prothrombin Time 32.1 9.0-12.0 SECONDS Prothromb Time International Ratio 2.9 0.9-1.1
[2016-09-16] MEDS ORDERED: LVQ750 PO (15:26)
[2016-09-16] MEDS ORDERED: PRVHFAIN INH (15:26)
[2016-09-16] MEDS ORDERED: LCTX PO (15:26)
[2016-09-16] MEDS ORDERED: DEXT1SYP PO (15:26)
[2016-09-16] MEDS ORDERED: LEVOFLOXACIN 750 MG TAB PO ONE (15:29)
--- NOTE | 2016-09-16 15:29 | Discharge Instructions ---
Discharge Instructions Admission Reason for Admission: Comminity Acquired Pneumonia Discharge Discharge Diagnosis / Problem: Bibasilar Pneumonia,Acute Bronchitis Discharge Goals Goal(s): Prevent Disease Progression Activity Recommendations Activity Limitations: resume your previous activity . Instructions / Follow-Up Instructions / Follow-Up Dr Lao on 09/20/16 at 9:50AM.Check with the Coagulation clinic as well. Current Hospital Diet Patient's current hospital diet: AHA Diet (Heart Healthy) Discharge Diet Recommended Diet: AHA Diet (Heart Healthy) Pending Studies Studies pending at discharge: no Medical Emergencies . Who to Call and When: Medical Emergencies: If at any time you feel your situation is an emergency, please call 911 immediately. . Non-Emergent Contact Non-Emergency issues call your: Primary Care Provider . Past History Medical & Surgical History: (1) Community acquired pneumonia (2) Atrial fibrillation with rapid ventricular response (3) Pneumonia of both lower lobes (4) PAF (paroxysmal atrial fibrillation) (5) HTN (hypertension) (6) Hyperlipidemia (7) Sleep disorder (8) History of aortic root repair (9) History of prostate surgery . "Provider Documentation" section prepared by Cherelle Mckoy. VTE Core Measure Inpt VTE Proph given/why not?: Warfarin (Coumadin)
[2016-09-16] MEDS: WARFARIN SOD 3 MG TAB PO SCH (16:23)
--- NOTE | 2016-09-17 10:00 | Discharge Summary ---
Discharge Summary Date of Service Sep 17, 2016. Discharge Summary Admission Date: Sep 14, 2016 at 20:18 Discharge Date: Sep 16, 2016 Discharge Disposition: Home Principal Diagnosis: Bibasilar Pneumonia,Acute Bronchitis Secondary Diagnoses/Problems: Please See H&P Medication Reconciliation New Medications: Albuterol (Ventolin Hfa) 60 Puffs/5400 Mcg Aers 2 PUFF INH Q6H PRN for Wheezing, #1 Dextromethorphan-Guaifenesin (Robitussin Peak Cold Dm) 1 Syp Syp 10 ML PO Q6H PRN for Cough, #1 Lactobacillus Acidophilus (Lactinex) Tab 2 TAB PO BID, #20 TAB Levofloxacin (Levofloxacin) 750 Mg Tab 750 MG PO DAILY, #5 Continued Medications: Amiodarone HCl (Amiodarone HCl) 200 Mg Tab 200 MG PO DAILY Amoxicillin (Amoxil) 500 Mg Cap 2000 MG PO UD PRN for Dental Appointment TAKE 4 CAPSULES BY MOUTH ONE HOUR PRIOR TO DENTAL APPOINTMENT Aspirin (Aspirin Low Dose) 81 Mg Chw 162 MG PO DAILY Atorvastatin (Atorvastatin Calcium) 20 Mg Tab 20 MG PO DAILY Furosemide (Furosemide) 40 Mg Tab 40 MG PO DAILY Levothyroxine Sodium (Levothyroxine Sodium) 25 Mcg Tab 25 MCG PO DAILY TAKE THIS MEDICATION ON AN EMPTY STOMACH Lisinopril (Lisinopril) 5 Mg Tab 5 MG PO DAILY Metoprolol Tartrate (Lopressor) (Lopressor) 100 Mg Tab 100 MG PO BID Multiple Vitamin (Multivitamin) 1 Tab Tab 1 TABLET PO DAILY, TAB [place]-3 Fatty Acids (Fish Oil) 1 Cap Cap 1 CAP PO DAILY Polyethylene (Polyethylene Glycol 3350) 527 Gm Soln 17 GM PO DAILY PRN for Constipation MIX 17 GRAMS (ONE HEAPING TABLESPOON) IN 8 OUNCES OF WATER OR JUICE Potassium Chloride (Potassium Chloride ER) 20 Meq Tab 10 MEQ PO BID Quetiapine Fumarate (Seroquel) 50 Mg Tab 50 MG PO HS Warfarin Sodium (Warfarin Sodium) 3 Mg Tab 3 MG PO 5XWK, TAB TAKE 3 MG EVERY FRIDAY,FRIDAY,FRIDAY, AND FRIDAY OR OTHERWISE DIRECTED TO TAKE BY ANTICOAGULATION CLINIC/MD Warfarin Sodium (Warfarin Sodium) 3 Mg Tab 1.5 MG PO 2XWK TAKE HALF A TABLET (1.5 MG) EVERY AND FRIDAY OR OTHERWISE DIRECTED TO TAKE BY ANTICOAGULATION CLINIC/MD Admission Information HPI (per Admitting provider): 71 yo M with PAF on coumadin, CAD and HTN who presents with one week of generalized weakness and cough with worsening fatigue this morning that progressed throughout the day today. Today he developed fevers, chills, nausea and vomiting that was intermittent, shortness of breath and headache. 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 He denies any diarrhea and currently says the BAUTISTA is gone and he is feeling better. In the ER his vitals were 198/115, P 95, RR 21 satting 93% on 3L NC. He states that he did take his BP pills today. He also is not on oxygen typically and during triage was found to be hypoxic at 85% on room air. CXR is consistent with pneumonia. He also reports a medication change--started Synthroid two weeks ago. Past Medical/Surgical History Medical Problems: (1) Atrial fibrillation Status: Chronic (2) BPH (benign prostatic hypertrophy) Status: Chronic (3) CAD (coronary artery disease) Status: Chronic (4) External hemorrhoids Status: Chronic (5) Hemangioma of liver Status: Chronic (6) Hemorrhagic Stroke Status: Resolved (7) Hemorrhoidectomy Status: Resolved (8) HTN (hypertension) Status: Chronic (9) Hyperlipidemia Status: Chronic (10) Hypothyroidism Status: Chronic (11) PAF (paroxysmal atrial fibrillation) Status: Chronic (12) Sleep disorder Status: Chronic Surgical Problems: (1) History of aortic root repair Status: Resolved (2) History of prostate surgery Status: Resolved Family History Diabetes mellitus Heart disease Hypertension Father of electrolyte abnormality, mother from complications of DMII Social History Smoking Status: Former Smoker Smokeless Tobacco Use: Unknown Alcohol Use: socially Drug Use: none Marital Status: Housing status: lives with significant other Occupational Status: retired Immunizations History of Influenza Vaccine: No History of Tetanus Vaccine?: Yes Tetanus Immunization Date: Jul 21, 2009 History of Pneumococcal: Yes Pneumococcal Date: Aug 07, 2012 History of Hepatitis B Vaccine: No Multi-Drug Resistant Organisms History of MDRO: No Allergies Coded Allergies: No Known Allergies (Unverified , 09/14/16) Home Medications Scheduled Amiodarone HCl (Amiodarone HCl), 200 MG PO DAILY Aspirin (Aspirin Low Dose), 162 MG PO DAILY Atorvastatin (Atorvastatin Calcium), 20 MG PO DAILY Furosemide (Furosemide), 40 MG PO DAILY Levothyroxine Sodium (Levothyroxine Sodium), 25 MCG PO DAILY Lisinopril (Lisinopril), 5 MG PO DAILY Metoprolol Tartrate (Lopressor) (Lopressor), 100 MG PO BID Multiple Vitamin (Multivitamin), 1 TABLET PO DAILY [place]-3 Fatty Acids (Fish Oil), 1 CAP PO DAILY Potassium Chloride (Potassium Chloride ER), 10 MEQ PO BID Quetiapine Fumarate (Seroquel), 50 MG PO HS Warfarin Sodium (Warfarin Sodium), 3 MG PO 5XWK Warfarin Sodium (Warfarin Sodium), 1.5 MG PO 2XWK Scheduled PRN Amoxicillin (Amoxil), 2,000 MG PO UD PRN for Dental Appointment Polyethylene (Polyethylene Glycol 3350), 17 GM PO DAILY PRN for Constipation Review of Systems All reviewed and negative except as indicated in HPI. Physical Exam Vital Signs Date Time Temp Pulse Resp B/P Pulse Ox O2 Delivery O2 Flow Rate FiO2 09/14/16 18:50 95 21 178/101 93 Nasal Cannula 3.0 09/14/16 18:21 92 Nasal Cannula 3.0 09/14/16 18:20 85 Room Air 09/14/16 18:10 88 09/14/16 17:47 37.9 100 24 198/115 90 Room Air GEN: WNWD, in no acute distress, alert and appropriate, oxygen in place, no conversational dyspnea or use of accessory respiratory muscles to breathe HEENT: NC/AT, PERRL, normal sclerae, pharynx nonacute, no cervical LAD CARDIO: reg rate, S1/2 heard without m/g/r LUNGS: CTA bilaterally, rhonchi at bases bilaterally, no rales or wheezes, good diaphragmatic excursion ABD: soft, non-tender, non-distended, no rebound or guarding, +BS EXTREMITY: no LE swelling or edema, extremities are warm and well-perfused NEURO: CN 2-12 grossly intact, sensation intact throughout MUSC: 5/5 strength throughout, no gross focal deficits SKIN: warm and dry Diagnostics Laboratory Results Results Past 24 Hours Test 09/14/16 18:14 09/14/16 18:18 09/14/16 18:23 09/14/16 18:28 Range/Units Bedside Glucose 124 70-99 mg/dl White Blood Count 14.73 4.8-10.8 K/uL Red Blood Count 4.88 4.7-6.1 M/uL Hemoglobin 13.9 14.0-18.0 g/dL Hematocrit 40.6 42-52 % Mean Corpuscular Volume 83.2 80-100 fL Mean Corpuscular Hemoglobin 28.5 25-34 pg Mean Corpuscular Hemoglobin Concent 34.2 32-36 g/dl Platelet Count 235 130-400 K/uL Mean Platelet Volume 11.2 7.4-10.4 fL Neutrophils (%) (Auto) 92.4 % Lymphocytes (%) (Auto) 3.5 % Monocytes (%) (Auto) 3.6 % Eosinophils (%) (Auto) 0.1 % Basophils (%) (Auto) 0.1 % Neutrophils # (Auto) 13.60 1.4-6.5 K/uL Lymphocytes # (Auto) 0.52 1.2-3.4 K/uL Monocytes # (Auto) 0.53 0.11-0.59 K/uL Eosinophils # (Auto) 0.01 0-0.5 K/uL Basophils # (Auto) 0.02 0-0.2 K/uL RDW Standard Deviation 45.9 36.4-46.3 fL RDW Coefficient of Variation 15.0 11.5-14.5 % Immature Granulocyte % (Auto) 0.3 % Immature Granulocyte # (Auto) 0.05 0.00-0.02 K/uL Prothrombin Time 36.2 9.0-12.0 SECONDS Prothromb Time International Ratio 3.2 0.9-1.1 Activated Partial Thromboplast Time 32.5 21.0-31.0 SECONDS Partial Thromboplastin Ratio 1.3 Sodium Level 139 136-145 mmol/L Potassium Level 3.2 3.5-5.1 mmol/L Chloride Level 101 98-107 mmol/L Carbon Dioxide Level 30 21-32 mmol/L Anion Gap 8.0 3-11 mmol/L Blood Urea Nitrogen 16 7-18 mg/dl Creatinine 1.30 0.60-1.40 mg/dl Est Creatinine Clear Calc Drug Dose 64.0 ml/min Estimated GFR () 62.7 Estimated GFR (Non- 54.1 BUN/Creatinine Ratio 12.1 10-20 Random Glucose 144 70-99 mg/dl Calcium Level 9.1 8.5-10.1 mg/dl Phosphorus Level 1.7 2.5-4.9 mg/dl Magnesium Level 1.7 1.8-2.4 mg/dl Total Bilirubin 0.6 0.2-1 mg/dl Direct Bilirubin 0.2 0-0.2 mg/dl Aspartate Amino Transf (AST/SGOT) 19 15-37 U/L Alanine Aminotransferase (ALT/SGPT) 22 12-78 U/L Alkaline Phosphatase 89 45-117 U/L Total Creatine Kinase 86 39-308 U/L Creatine Kinase MB 2.3 0.5-3.6 ng/ml Creatine Kinase MB Ratio 2.7 0-3.0 Troponin I < 0.015 0-0.045 ng/ml Pro-B-Type Natriuretic Peptide 904 0-900 pg/ml Total Protein 7.3 6.4-8.2 gm/dl Albumin 3.9 3.4-5.0 gm/dl Lipase 99 73-393 U/L Thyroid Stimulating Hormone (TSH) 0.956 0.300-4.500 uIu/ml Bedside Lactic Acid Venous 2.04 0.90-1.70 mmol/L Venous Blood pH 7.49 7.36-7.41 Venous Blood Partial Pressure CO2 37 38.0-50.0 mmHg Venous Blood Partial Pressure O2 30 mmHg Venous Blood HCO3 27 mmol/L Venous Blood Oxygen Saturation < 60.0 % Venous Blood Base Excess 4.1 mmol/L Test 09/14/16 18:30 Range/Units Influenza Type A Antigen Neg for Influ A NEG Influenza Type B Antigen Neg for Influ B NEG Microbiology Results 09/14/16 Blood Culture, Received Pending 09/14/16 Blood Culture, Received Pending Diagnostic Radiology CXR: IMPRESSION: 1. Cardiomegaly and mild pulmonary vascular congestion 2. Progressive bibasal airspace opacities. CT head without contrast: IMPRESSION: No acute intracranial findings KUB: IMPRESSION: Gaseous distention what is probably the sigmoid colon measuring up to 9.6 cm in diameter. EKG SR, 1AVB, no ST changes Impression Assessment and Plan 71 yoM with 1 week of progressive weakness and cough with worsening of symptoms today. Clinical picture consistent with sepsis 2/2 pneumonia 1. CAP- Sepsis criteria met, s/p resuscitation and feeling better in ER. Lactate >2, will trend in 6 hours. Cont IVF as patient appears clinically dry. Levaquin started in ER and will be continued. Supportive care with antiemetics and antipyretics as needed. Monitor on tele. flu PCR pending 2. Electrolyte abnormalities- 2.2 acute illness. Of note, father " from electrolyte issues". Will replace Phos, Mg and K at this time and repeat PRP in am. 3. Hypertensive urgency-patient reports taking his BP meds today. May be related to stress of being admitted. Will support with IV hydralazine at this time, and cont PO meds in am. 4. Acute gastritis-vomiting may be related to pneumonia, however, he did mention some vomiting last week so may be a separate process. Possible aspiration causing current pneumonia?. Consider changing abx for more anaerobe coverage if patient doesn't improve on current therapy. 5. PAF-cont coumadin, supratherapeutic INR at this time. Trend INR 6. CAD 7. Sleep disorder-cont Seroquel 8. Hypothroidism-cont Synthroid DVT proph-coumadin Full Code Dispo-to tele floor Miladys Rowe DO Hospitalist Level of Care Telemetry Resuscitation Status FULL RESUSCITATION VTE Prophylaxis VTE Risk Assessment Done? Y/N: Yes Risk Level: Moderate Given or contraindicated: Warfarin (Coumadin) <Electronically signed by Miladys Rowe DO> Physical Exam (per Admitting): GEN: WNWD, in no acute distress, alert and appropriate, oxygen in place, no conversational dyspnea or use of accessory respiratory muscles to breathe HEENT: NC/AT, PERRL, normal sclerae, pharynx nonacute, no cervical LAD CARDIO: reg rate, S1/2 heard without m/g/r LUNGS: CTA bilaterally, rhonchi at bases bilaterally, no rales or wheezes, good diaphragmatic excursion ABD: soft, non-tender, non-distended, no rebound or guarding, +BS EXTREMITY: no LE swelling or edema, extremities are warm and well-perfused NEURO: CN 2-12 grossly intact, sensation intact throughout MUSC: 5/5 strength throughout, no gross focal deficits SKIN: warm and dry Hospital Course CAP Met Sepsis criteria on Admission Received Fluid Resuscitation and lactate measurement as per the protocol Feels a lot better On IV Levaquin ,will change to oral to finish 7 days course as an OP Nebs PRN Negative for Flu Sputum culture -heavy normal yakov Repeat CXR negative for any Pneumonia ,Minimal bibasilar atelectasis Electrolyte abnormalities- 2.2 acute illness. Replacement given Normalized Hypertensive urgency IV hydralazine at this time, and cont PO meds in am. BP is on the upper side today Acute gastritis-vomiting may be related to pneumonia, PPI No more vomiting PAF-cont Coumadin, subtherapeutic INR at this time. Trend INR-2.9 today CAD No acute issue Sleep disorder-cont Seroquel Hypothyroidism-cont Synthroid DVT proph-Coumadin Full Code DISPOSITION Discharge this afternoon Total time spent on discharge = 35 minutes This includes examination of the patient, discharge planning, medication reconciliation, and communication with other providers. Discharge Instructions Admission Reason for Admission: Comminity Acquired Pneumonia Discharge Discharge Diagnosis / Problem: Bibasilar Pneumonia,Acute Bronchitis Discharge Goals Goal(s): Prevent Disease Progression Activity Recommendations Activity Limitations: resume your previous activity . Instructions / Follow-Up Instructions / Follow-Up Dr Lao on 09/20/16 at 9:50AM.Check with the Coagulation clinic as well. Current Hospital Diet Patient's current hospital diet: AHA Diet (Heart Healthy) Discharge Diet Recommended Diet: AHA Diet (Heart Healthy) Pending Studies Studies pending at discharge: no Medical Emergencies . Who to Call and When: Medical Emergencies: If at any time you feel your situation is an emergency, please call 911 immediately. . Non-Emergent Contact Non-Emergency issues call your: Primary Care Provider . Past History Medical & Surgical History: (1) Community acquired pneumonia (2) Atrial fibrillation with rapid ventricular response (3) Pneumonia of both lower lobes (4) PAF (paroxysmal atrial fibrillation) (5) HTN (hypertension) (6) Hyperlipidemia (7) Sleep disorder (8) History of aortic root repair (9) History of prostate surgery . "Provider Documentation" section prepared by Cherelle Mckoy. VTE Core Measure Inpt VTE Proph given/why not?: Warfarin (Coumadin) <Electronically signed by Cherelle Mckoy M.D.> Additional Copies To Emigdio Lao M.D.
[2016-09-17] MEDS ORDERED: LEVOFLOXACIN 750 MG TAB PO SCH (11:00)
[2016-09-17] MEDS ORDERED: WARFARIN SOD 0.5 MG TAB PO SCH (16:00)
== END 2016-09-16 17:45 | disposition home or self-care (01) | DRG 871 ==
LOC: ENRESERVTM → ENRESERVDT → C.EDB 17:44 → C.2T 20:18
PROVIDERS: ADMIT Hospitalist; ATTEND Internal Medicine
DX: A41.9 Sepsis, unspecified organism (principal); J18.9 Pneumonia, unspecified organism; E87.8 Other disorders of electrolyte and fluid balance, not elsewhere classified; I16.0 Hypertensive urgency; K29.00 Acute gastritis without bleeding; I48.0 Paroxysmal atrial fibrillation; I25.10 Atherosclerotic heart disease of native coronary artery without angina pectoris; G47.9 Sleep disorder, unspecified; E03.9 Hypothyroidism, unspecified; Z87.891 Personal history of nicotine dependence; Z79.01 Long term (current) use of anticoagulants; Z79.82 Long term (current) use of aspirin; Z79.899 Other long term (current) drug therapy; Z82.49 Family history of ischemic heart disease and other diseases of the circulatory system; Z83.3 Family history of diabetes mellitus

== ENCOUNTER 2017-10-17 09:03 | Inpatient (IN) | payer OTHER ==
[~2017-10-17] VITALS: Ht 182.9 cm; Wt 79.1 kg
[~2017-10-17 09:03] MED LIST changes: -AMIO200T4 PO; +AMOX500C3 PO; -ASPCH81X PO; +CRD200 PO; +DEXT1SYP PO; -FISHOIL PO; -FURO40TA3 PO; +LEVO25TA5 PO; -LISI5TAB PO; -LPT/20 PO; +LPT20 PO; +LSN5 PO; +LSX40 PO; +LVQ750 PO; +MRLP527 PO; +OMEGCAP2 PO; -POLY335019 PO; +POTA-65 PO; -POTA10CA28 PO; +PRVHFAIN INH; -QUET1TAB30 PO; +QUET5TAB PO; +WARF-285 PO; -WARF3TAB PO; +[UNRECOGNIZED DRUG - CODE] PO
[2017-10-17] MEDS ORDERED: SODIUM CHLORIDE 0.9% 1000ML 250 ML IV STA (09:44)
[2017-10-17] MEDS ORDERED: SODIUM CHLORIDE 0.9% 1000ML 1,000 ML IV STA (09:44)
[2017-10-17 10:12] LABS: BASO % 0.9 %; BASO ABS # 0.05 K/uL (0-0.2); EOS % 1.7 %; EOS ABS # 0.09 K/uL (0-0.5); HEMATOCRIT 41.9 % (42-52); HEMOGLOBIN 14.4 g/dL (14.0-18.0); IG# 0.02 K/uL (0.00-0.02); LYMPH % 11.1 %; MEAN CELL VOLUME 87.8 fL (80-100); MEAN CORPUSCULAR HEMOGLOBIN 30.2 pg (25-34); MEAN CORPUSCULAR HGB CONC 34.4 g/dl (32-36); MEAN PLATELET VOLUME 11.2 fL (7.4-10.4); MONO % 7.9 %; MONO ABS # 0.43 K/uL (0.11-0.59); NEUT ABS # 4.23 K/uL (1.4-6.5); PLATELET COUNT 166 K/uL (130-400); WHITE BLOOD COUNT 5.42 K/uL (4.8-10.8)
--- NOTE | 2017-10-17 10:22 | EMERGENCY ROOM VISIT NOTE ---
History Report prepared by Linus: Shireen Germain Under the Supervision of: Dr. Vinay Karimi M.D. First contact with patient: 09:35 Chief Complaint: RECTAL BLEEDING Stated Complaint: ANAL BLEEDING History of Present Illness The patient is a 72 year old male who presents to the Emergency Room with complaints of constant rectal bleeding beginning this morning. The patient reports his rectal bleeding began after he had a bowel movement this morning. He notes using a compress as an attempt to stop the bleeding. He states he soaked about four compresses before he decided to come into the ED. The patient had a colonoscopy at [facility] a month ago. He had seven polyps removed and was told he had hemorrhoids. The patient notes intermittent dizziness but denies any chest pain, shortness of breath, numbness, or weakness. The patient is on Coumadin for artificial valve replacements. Source of History: patient Onset: this morning Position: other (rectal) Quality: other (bleeding) Timing: constant Associated Symptoms: No chest pain, No SOB, No weakness, No numbness Review of Systems See HPI for pertinent positives & negatives. A total of 10 systems reviewed and were otherwise negative. Past Medical & Surgical Medical Problems: (1) Aortic root aneurysm (2) Atrial fibrillation (3) CAD (coronary artery disease) (4) GERD (gastroesophageal reflux disease) (5) HLD (hyperlipidemia) (6) HTN (hypertension) Surgical Problems: (1) H/O aortic valve replacement (2) H/O arthroscopy of knee (3) H/O hemorrhoidectomy (4) H/O maze procedure (5) H/O mitral valve replacement (6) S/P TURP Old medical records were reviewed. Nurse's notes were reviewed and I agree with. Family History Diabetes mellitus Heart disease Hypertension Social History Smoking Status: Former Smoker Alcohol Use: occasionally Drug Use: none Marital Status: Housing Status: lives with family Occupation Status: retired Current/Historical Medications Scheduled Amiodarone HCl (Amiodarone HCl), 200 MG PO DAILY Aspirin (Aspirin Low Dose), 162 MG PO DAILY Atorvastatin (Lipitor), 20 MG PO DAILY Furosemide (Furosemide), 40 MG PO DAILY Levothyroxine Sodium (Levothyroxine Sodium), 25 MCG PO DAILY Lisinopril (Lisinopril), 5 MG PO DAILY Metoprolol Tartrate (Lopressor) (Lopressor), 50 MG PO BID Multiple Vitamin (Multivitamin), 1 TABLET PO DAILY [place]-3 Fatty Acids (Fish Oil), 1 CAP PO DAILY Potassium Chloride (Potassium Chloride ER), 10 MEQ PO BID Quetiapine Fumarate (Seroquel), 50 MG PO HS Warfarin Sodium (Warfarin Sodium), 3 MG PO 2XWK Warfarin Sodium (Warfarin Sodium), 1.5 MG PO 5XWK Scheduled PRN Albuterol (Ventolin Hfa), 2 PUFF INH Q6H PRN for Wheezing Amoxicillin (Amoxil), 2,000 MG PO UD PRN for Dental Appointment Polyethylene (Polyethylene Glycol 3350), 17 GM PO DAILY PRN for Constipation Allergies Coded Allergies: No Known Allergies (Unverified , 10/17/17) Physical Exam Vital Signs Date Time Temp Pulse Resp B/P (MAP) Pulse Ox O2 Delivery O2 Flow Rate FiO2 10/17/17 11:16 94 Room Air 10/17/17 11:04 60 18 159/96 94 Room Air 10/17/17 09:10 36.8 70 20 182/102 96 Room Air Physical Exam General: Non-ill appearing older male in no acute distress. HEENT: Normal cephalic atraumatic. Pupils are equal round and reactive to light. Extraocular movements are intact. Oropharynx is pink with moist mucous membranes. No swelling of the mouth lips or tongue. Neck: Supple with a midline trachea. No meningeal signs or stiffness, no JVD or bruits. No Stridor. Chest: Clear to auscultation bilaterally. No wheezes or rhonchi. No increased work of breathing. Heart: regular rate and rhythm. Abdomen: Soft nontender, nondistended without rebound guarding or rigidity. Extremities: No cyanosis clubbing or edema. No calf tenderness or assymetry Spine/Back. Non tender to palpation. No CVA tenderness Skin: Good turgor without rashes. Rectal: Large hemorrhoids with some bleeding, guaiac positive. Neurologic exam: Cranial nerves two through 12 are intact. Motor and sensation are intact and symmetrical throughout. Medical Decision & Procedures Laboratory Results 10/17/17 09:54 Red Blood Count 4.77, Mean Corpuscular Volume 87.8, Mean Corpuscular Hemoglobin 30.2, Mean Corpuscular Hemoglobin Concent 34.4, Mean Platelet Volume 11.2, Neutrophils (%) (Auto) 78.0, Lymphocytes (%) (Auto) 11.1, Monocytes (%) (Auto) 7.9, Eosinophils (%) (Auto) 1.7, Basophils (%) (Auto) 0.9, Neutrophils # (Auto) 4.23, Lymphocytes # (Auto) 0.60, Monocytes # (Auto) 0.43, Eosinophils # (Auto) 0.09, Basophils # (Auto) 0.05 10/17/17 09:54 Test 10/17/17 09:54 White Blood Count 5.42 K/uL (4.8-10.8) Red Blood Count 4.77 M/uL (4.7-6.1) Hemoglobin 14.4 g/dL (14.0-18.0) Hematocrit 41.9 % (42-52) Mean Corpuscular Volume 87.8 fL (80-100) Mean Corpuscular Hemoglobin 30.2 pg (25-34) Mean Corpuscular Hemoglobin Concent 34.4 g/dl (32-36) Platelet Count 166 K/uL (130-400) Mean Platelet Volume 11.2 fL (7.4-10.4) Neutrophils (%) (Auto) 78.0 % Lymphocytes (%) (Auto) 11.1 % Monocytes (%) (Auto) 7.9 % Eosinophils (%) (Auto) 1.7 % Basophils (%) (Auto) 0.9 % Neutrophils # (Auto) 4.23 K/uL (1.4-6.5) Lymphocytes # (Auto) 0.60 K/uL (1.2-3.4) Monocytes # (Auto) 0.43 K/uL (0.11-0.59) Eosinophils # (Auto) 0.09 K/uL (0-0.5) Basophils # (Auto) 0.05 K/uL (0-0.2) RDW Standard Deviation 45.0 fL (36.4-46.3) RDW Coefficient of Variation 14.0 % (11.5-14.5) Immature Granulocyte % (Auto) 0.4 % Immature Granulocyte # (Auto) 0.02 K/uL (0.00-0.02) Prothrombin Time 20.1 SECONDS (9.0-12.0) Prothromb Time International Ratio 1.9 (0.9-1.1) Activated Partial Thromboplast Time 35.2 SECONDS (21.0-31.0) Partial Thromboplastin Ratio 1.4 Anion Gap 6.0 mmol/L (3-11) Est Creatinine Clear Calc Drug Dose 78.6 ml/min Estimated GFR () 78.0 Estimated GFR (Non- 67.3 BUN/Creatinine Ratio 13.8 (10-20) Calcium Level 8.5 mg/dl (8.5-10.1) Magnesium Level 2.3 mg/dl (1.8-2.4) Total Bilirubin 0.8 mg/dl (0.2-1) Direct Bilirubin 0.2 mg/dl (0-0.2) Aspartate Amino Transf (AST/SGOT) 17 U/L (15-37) Alanine Aminotransferase (ALT/SGPT) 19 U/L (12-78) Alkaline Phosphatase 84 U/L (45-117) Total Protein 6.9 gm/dl (6.4-8.2) Albumin 3.7 gm/dl (3.4-5.0) Lipase 84 U/L (73-393) Laboratory studies as stated above per my review. Medications Administered Medications (Trade) Dose Ordered Sig/Neymar Route Start Time Stop Time Status Last Admin Dose Admin Sodium Chloride 250 ml @ 999 mls/hr Q16M STAT IV 10/17/17 09:44 10/17/17 09:59 DC 10/17/17 09:44 999 MLS/HR Sodium Chloride 1,000 ml @ 100 mls/hr Q10H STAT IV 10/17/17 09:44 10/17/17 13:25 DC 10/17/17 09:44 100 MLS/HR ED Course 0936: Past medical records reviewed. The patient was evaluated in room A2, and a complete history and physical examination were performed. 0944: Ordered Sodium Chloride 1000 ml @ 100 mls/hr IV, Sodium Chloride 250 ml @ 999 mls/hr IV. 1043: I updated the patient on his test results and the treatment plan. The patient is resting comfortably. 1054: Discussed the patient's case with Emilee Wilhelm. The patient will be evaluated for further management. Medical Decision Differential diagnoses: GI bleed, hemorrhoid bleed, anticoagulation usage, electrolyte and metabolic abnormality. This patient comes in as described above. He was placed in room A2. he has been having rectal bleeding which started today. on exam, he does have bright rectal bleeding. he does have several large hemorrhoids he is guaiac positive. I think most likely this is coming from the hemorrhoids but it may be coming from around or above. He did have a scope about a month ago and had several polyps removed so that would also be of concern. His hemoglobin thus far stable. His INR is 1.9. Because he has mechanical heart valves, I did not reverse him he seems stable but I do think he needs to be obscure further evaluated I think most likely is hemorrhoids but it may be coming from higher up. I have consulted the [facility] hospitalist to see him in the ER. Medication Reconcilliation Current Medication List: was personally reviewed by me Blood Pressure Screening Patient's blood pressure: Elevated blood pressure Blood pressure disposition: Referred to PCP (referred to hospitalist) Consults Time Called: 1049 Consulting Physician: Emilee Wilhelm Returned Call: [phone] Discussed the patient's case with Emilee Wilhelm. The patient will be evaluated for further management. Impression Primary Impression: GI bleed Additional Impression: Anticoagulant effect Scribe Attestation The scribe's documentation has been prepared under my direction and personally reviewed by me in its entirety. I confirm that the note above accurately reflects all work, treatment, procedures, and medical decision making performed by me. Departure Information Dispostion Being Evaluated By Hospitalist Referrals Emigdio Lao M.D. (PCP) Patient Instructions My [facility] Problem Qualifiers
[2017-10-17 10:26] LABS: INR 1.9 (0.9-1.1); PTT PATIENT 35.2 SECONDS (21.0-31.0)
[2017-10-17 10:40] LABS: ALBUMIN 3.7 gm/dl (3.4-5.0); CALCIUM 8.5 mg/dl (8.5-10.1); CREATININE 1.08 mg/dl (0.60-1.40); POTASSIUM 3.4 mmol/L (3.5-5.1)
[2017-10-17 10:43] LABS: TOTAL PROTEIN 6.9 gm/dl (6.4-8.2)
[2017-10-17 11:16] VITALS: O2SAT 94; Ht 182.9 cm; Wt 79.1 kg
[2017-10-17] MEDS ORDERED: ONDANSETRON INJ 2 MG/ML 2 ML VIAL IV PRN (12:00)
[2017-10-17] MEDS ORDERED: POTASSIUM CHLORIDE 20 MEQ TABCR PO ONE (12:00)
[2017-10-17] MEDS ORDERED: ACETAMINOPHEN 325 MG TAB PO PRN (12:00)
[2017-10-17] MEDS ORDERED: METOPROLOL TARTRATE 100 MG TAB PO ONE (12:18)
[2017-10-17] MEDS ORDERED: LEVOTHYROXINE 25 MCG TAB PO ONE (12:18)
[2017-10-17] MEDS ORDERED: LISINOPRIL 5 MG TAB PO ONE (12:18)
[2017-10-17] MEDS ORDERED: AMIODARONE 200 MG TAB PO ONE (12:18)
[2017-10-17] MEDS ORDERED: LISINOPRIL 5 MG TAB ONE (12:35)
[2017-10-17] MEDS ORDERED: AMIODARONE 200 MG TAB ONE (12:35)
[2017-10-17] MEDS ORDERED: METOPROLOL TARTRATE 50 MG TAB ONE (12:35)
[2017-10-17 13:09] VITALS: BP 183/108; PULSE 73; TEMP 36.9; O2SAT 96
[2017-10-17] MEDS ORDERED: IV FLUIDS COMPLETED PRN (13:30)
--- NOTE | 2017-10-17 13:44 | History and Physical ---
History & Physical Date & Time of Service: Oct 17, 2017 ~ 11:30 Chief Complaint: Rectal Bleeding Primary Care Physician: Emigdio Lao M.D. History of Present Illness Source: patient 72-year-old male who presents to the ER with a chief complaint of rectal bleeding. Patient underwent colonoscopy on 09/16/17 where he had 7 polyps removed and internal hemorrhoids were noted. Patient reports a scant amount of bleeding post procedure however had since resolved. Patient reports that this morning he had a normal bowel movement which is followed by a large amount of bright red bleeding per rectum. He reports that blood continued to ooze from his rectum. He applied pressure with washcloth and gauze however blood soaked through these. He had some minor lower cramping abdominal pain. No nausea or vomiting. He denies chest pain shortness of breath. No lightheadedness, dizziness, diaphoresis, or syncopal events. He denies recent fever and chills. No urinary symptoms. In the ER, patient's INR is 1.9. He is noted to be anticoagulated on Coumadin for history of atrial fibrillation and bioprosthetic mitral valve replacement. Hemoglobin is stable at 14.4. Vital signs are stable. Patient was treated with IVF. Past Medical/Surgical History Medical Problems: (1) Aortic root aneurysm Permanent Comment: s/p repair Status: Chronic (2) Atrial fibrillation Status: Chronic (3) CAD (coronary artery disease) Permanent Comment: cath 2016 - mild, non obstructive Status: Chronic (4) GERD (gastroesophageal reflux disease) Status: Chronic (5) HLD (hyperlipidemia) Status: Chronic (6) HTN (hypertension) Status: Chronic Surgical Problems: (1) H/O aortic valve replacement Status: Chronic (2) H/O arthroscopy of knee Status: Chronic (3) H/O hemorrhoidectomy Status: Chronic (4) H/O maze procedure Status: Chronic (5) H/O mitral valve replacement Status: Chronic (6) S/P TURP Status: Chronic Family History Diabetes mellitus MOTHER Heart disease MOTHER Hypertension FATHER Social History Smoking Status: Former Smoker Alcohol Use: occasionally Immunizations History of Tetanus Vaccine?: Yes Tetanus Immunization Date: Jul 21, 2009 History of Pneumococcal: Yes Pneumococcal Date: Sep 20, 2016 Allergies Coded Allergies: No Known Allergies (Unverified , 10/17/17) Home Medications Scheduled Amiodarone HCl (Amiodarone HCl), 200 MG PO DAILY Aspirin (Aspirin Low Dose), 162 MG PO DAILY Atorvastatin (Lipitor), 20 MG PO DAILY Furosemide (Furosemide), 40 MG PO DAILY Levothyroxine Sodium (Levothyroxine Sodium), 25 MCG PO DAILY Lisinopril (Lisinopril), 5 MG PO DAILY Metoprolol Tartrate (Lopressor) (Lopressor), 50 MG PO BID Multiple Vitamin (Multivitamin), 1 TABLET PO DAILY [place]-3 Fatty Acids (Fish Oil), 1 CAP PO DAILY Potassium Chloride (Potassium Chloride ER), 10 MEQ PO BID Quetiapine Fumarate (Seroquel), 50 MG PO HS Warfarin Sodium (Warfarin Sodium), 3 MG PO 2XWK Warfarin Sodium (Warfarin Sodium), 1.5 MG PO 5XWK Scheduled PRN Albuterol (Ventolin Hfa), 2 PUFF INH Q6H PRN for Wheezing Amoxicillin (Amoxil), 2,000 MG PO UD PRN for Dental Appointment Polyethylene (Polyethylene Glycol 3350), 17 GM PO DAILY PRN for Constipation Review of Systems ROS per HPI, all other systems reviewed and negative Physical Exam Vital Signs Date Time Temp Pulse Resp B/P (MAP) Pulse Ox O2 Delivery O2 Flow Rate FiO2 10/17/17 13:09 36.9 73 18 183/108 (133) 96 Room Air 10/17/17 12:25 65 20 176/108 100 10/17/17 11:16 94 Room Air 10/17/17 11:04 60 18 159/96 94 Room Air 10/17/17 09:10 36.8 70 20 182/102 96 Room Air General Appearance: WD/WN, no apparent distress Head: normocephalic, atraumatic Eyes: normal inspection, EOMI, sclerae normal ENT: hearing grossly normal, + pertinent finding (Mucous membranes moist) Neck: supple, no JVD, trachea midline Respiratory/Chest: lungs clear, normal breath sounds, no respiratory distress Cardiovascular: regular rate, rhythm, no edema, normal peripheral pulses Abdomen/GI: normal bowel sounds, non tender, soft, no organomegaly Extremities/Musculoskelatal: normal inspection, no calf tenderness, normal capillary refill Neurologic/Psych: no motor/sensory deficits, alert, normal mood/affect, oriented x 3 Skin: normal color, warm/dry Diagnostics Laboratory Results Results Past 24 Hours Test 10/17/17 09:54 Range/Units White Blood Count 5.42 4.8-10.8 K/uL Red Blood Count 4.77 4.7-6.1 M/uL Hemoglobin 14.4 14.0-18.0 g/dL Hematocrit 41.9 42-52 % Mean Corpuscular Volume 87.8 80-100 fL Mean Corpuscular Hemoglobin 30.2 25-34 pg Mean Corpuscular Hemoglobin Concent 34.4 32-36 g/dl Platelet Count 166 130-400 K/uL Mean Platelet Volume 11.2 7.4-10.4 fL Neutrophils (%) (Auto) 78.0 % Lymphocytes (%) (Auto) 11.1 % Monocytes (%) (Auto) 7.9 % Eosinophils (%) (Auto) 1.7 % Basophils (%) (Auto) 0.9 % Neutrophils # (Auto) 4.23 1.4-6.5 K/uL Lymphocytes # (Auto) 0.60 1.2-3.4 K/uL Monocytes # (Auto) 0.43 0.11-0.59 K/uL Eosinophils # (Auto) 0.09 0-0.5 K/uL Basophils # (Auto) 0.05 0-0.2 K/uL RDW Standard Deviation 45.0 36.4-46.3 fL RDW Coefficient of Variation 14.0 11.5-14.5 % Immature Granulocyte % (Auto) 0.4 % Immature Granulocyte # (Auto) 0.02 0.00-0.02 K/uL Prothrombin Time 20.1 9.0-12.0 SECONDS Prothromb Time International Ratio 1.9 0.9-1.1 Activated Partial Thromboplast Time 35.2 21.0-31.0 SECONDS Partial Thromboplastin Ratio 1.4 Sodium Level 140 136-145 mmol/L Potassium Level 3.4 3.5-5.1 mmol/L Chloride Level 107 98-107 mmol/L Carbon Dioxide Level 27 21-32 mmol/L Anion Gap 6.0 3-11 mmol/L Blood Urea Nitrogen 15 7-18 mg/dl Creatinine 1.08 0.60-1.40 mg/dl Est Creatinine Clear Calc Drug Dose 78.6 ml/min Estimated GFR () 78.0 Estimated GFR (Non- 67.3 BUN/Creatinine Ratio 13.8 10-20 Random Glucose 92 70-99 mg/dl Calcium Level 8.5 8.5-10.1 mg/dl Magnesium Level 2.3 1.8-2.4 mg/dl Total Bilirubin 0.8 0.2-1 mg/dl Direct Bilirubin 0.2 0-0.2 mg/dl Aspartate Amino Transf (AST/SGOT) 17 15-37 U/L Alanine Aminotransferase (ALT/SGPT) 19 12-78 U/L Alkaline Phosphatase 84 45-117 U/L Total Protein 6.9 6.4-8.2 gm/dl Albumin 3.7 3.4-5.0 gm/dl Lipase 84 73-393 U/L Impression Assessment and Plan Lower GI bleed Coumadin coagulopathy -Admit to telemetry -Patient presenting with bright red bleeding per rectum that started this morning -patient had colonoscopy on 09/16/17 and had 7 polyps removed, internal hemorrhoids were also noted -INR 1.9, patient anticoagulated on Coumadin for history of atrial fibrillation -Hemoglobin 14.4, BP stable -We will hold on giving vitamin K for now -Serial H/H -N.p.o. except for medications -Case discussed with SHAHIDA Sheets History atrial fibrillation, bioprosthetic aortic and mitral valve replacement -Check EKG -Rhythm controlled on amiodarone and rate controlled on metoprolol, continue both -Coumadin management as above Hypertension -On metoprolol and lisinopril -Blood pressure elevated however patient did not take his antihypertensives today -We will give home doses of BP meds and reassess blood pressure Hypothyroidism -Continue levothyroxine DVT prophylaxis -SCDs due to GI bleeding Disposition -The patient will be placed as observation status for now until further work up is complete. Attending Note: Patient is a72 yr male with PMH of Afib on coumadin and other problems presents with history of rectal bleeding. Recent colonoscopy showed polyps and internal hemorrhoids. Patient reports he could not control the bleeding despite applying pressure and so came to ED for evaluation. Denies any abdominal pain. Hb stable. INR :1.9 Physical Exam: Vitals signs as noted above General Appearance:Moderately built and nourished, no apparent distress Head: normocephalic, Atraumatic Eyes: normal inspection, EOMI, PERRL Neck: supple, Trachea midline Respiratory/Chest: Normal breath sounds, CTA Cardiovascular: S1, S2, No murmur Abdomen/GI:Soft, Non tender, Bowel sounds present Extremities/Musculoskelatal:normal inspection, no edema Neurologic/Psych:AAOX3, grossly no focal neurological deficits Skin:normal color,warm, Well healed vertical surgical scar on chest Assessment and Plan: Lower GI bleeding: Likely secondary to hemorrhoids Appreciate GI Input Surgery consulted for possible hemorrhoidectomy Monitor H&H Transfuse PRBCs as needed Hold Aspirin, Coumadin Consider starting on IV heparin as able Hypertension: Uncontrolled Continue home meds Hydralazine PRN H/O Aortic root Aneurysm: S/P repair I personally reviewed the record. Patient is interviewed and examined at bedside. Patient's care is coordinated with Emilee Hernandez [employer]IL[employer]. Please refer to the documentation above for details of patient's presentation and for discussion of other issues. Advanced Directives Existing Living Will: Yes Existing Power of Reimbursement Representative: No Resuscitation Status VTE Prophylaxis Will order VTE Prophylaxis: Yes
[2017-10-17 14:16] VITALS: BP 197/109
[2017-10-17] MEDS ORDERED: HydrALAZINE HCL 20 MG/ML VIAL IV. PRN (14:30)
[2017-10-17] MEDS ORDERED: HydrALAZINE HCL 20 MG/ML VIAL ONE (14:38)
[2017-10-17] MEDS: SODIUM CHLORIDE 0.9% 1000ML 1,000 ML IV SCH (14:40)
--- NOTE | 2017-10-17 15:06 | Gastrointestinal Consultation ---
Gastrointestinal Consultation Date of Consultation: Oct 17, 2017 Attending Physician: Dr. Pepper Consulting Physician: Dr. Romero Reason for Consultation: Rectal bleeding History of Present Illness Patient is a 72 year old male patient of Dr. Griffith with a hx of Aortic valve replacement and A-fib on Coumadin, presented to the ED for rectal bleeding for which GI is consulted. He tells us that bleeding began this morning, that he has had some anal discomfort and that he does not have any abdominal pain, nausea, vomiting, dizziness, lightheadedness, CP or SOB. He did undergo colonoscopy 09/16/[address] David Vasques with removal of seven polyps, the largest 7mm size. He did not have bleeding after colonoscopy until today. Hb on arrival was 14 and repeat is pending. Past Medical/Surgical History Medical Problems: (1) Headache Status: Acute (2) Hypomagnesemia Status: Acute (3) Hypoxia Status: Acute (4) Pneumonia of both lower lobes Status: Acute Past Medical History: 1. Aortic aneurysm, S/P repair 2. A fib 3. CAD 4. GERD 5. Intracranial hemorrhage Past Surgical History: 1. Hemorrhoidectomy 2. TURP 3. Aortic root aneurysm repair 4. Mitral and aortic valve replacements 5. Knee arthroscopy 6. Colonoscopy Family History Diabetes mellitus MOTHER Heart disease MOTHER Hypertension FATHER Social History Smoking Status: Former Smoker Alcohol Use: occasionally Housing Status: lives with family Allergies Coded Allergies: No Known Allergies (Unverified , 10/17/17) Current Medications Home Meds and Scripts Medications Dose Route/Sig Max Daily Dose Days Date Category Dose Instructions Ventolin Hfa (Albuterol) 60 Puffs/5400 Mcg Aers 2 Puff INH Q6H PRN 09/16/16 Rx Fish Oil ([place]-3 Fatty Acids) 1 Cap Cap 1 Cap PO DAILY 09/14/16 Reported Polyethylene Glycol 3350 (Polyethylene) 527 Gm Soln 17 Gm PO DAILY PRN 09/14/16 Reported MIX 17 GRAMS (ONE HEAPING TABLESPOON) IN 8 OUNCES OF WATER OR JUICE Seroquel (Quetiapine Fumarate) 50 Mg Tab 50 Mg PO HS 09/14/16 Reported Lisinopril 5 Mg Tab 5 Mg PO DAILY 09/14/16 Reported Amoxil (Amoxicillin) 500 Mg Cap 2,000 Mg PO UD PRN 09/14/16 Reported TAKE 4 CAPSULES BY MOUTH ONE HOUR PRIOR TO DENTAL APPOINTMENT Warfarin Sodium 3 Mg Tab 1.5 Mg PO 5XWK 09/14/16 Reported Tues, Wed, Thurs, Sat, Sun Aspirin Low Dose (Aspirin) 81 Mg Chw 162 Mg PO DAILY 09/14/16 Reported Levothyroxine Sodium 25 Mcg Tab 25 Mcg PO DAILY 09/14/16 Reported TAKE THIS MEDICATION ON AN EMPTY STOMACH Potassium Chloride ER (Potassium Chloride) 20 Meq Tab 10 Meq PO BID 09/14/16 Reported Furosemide 40 Mg Tab 40 Mg PO DAILY 09/14/16 Reported Amiodarone HCl 200 Mg Tab 200 Mg PO DAILY 09/14/16 Reported Warfarin Sodium 3 Mg Tab 3 Mg PO 2XWK 09/14/16 Reported Mon, Fri Lopressor (Metoprolol Tartrate) 100 Mg Tab 50 Mg PO BID 03/28/16 Reported Lipitor (Atorvastatin Calcium) 20 Mg Tab 20 Mg PO DAILY 01/03/16 Reported Multivitamin (Multiple Vitamin) 1 Tab Tab 1 Tablet PO DAILY 04/15/12 Reported Review of Systems Constitutional: No fever, No chills, No sweats, No weight loss, No weakness Eyes: No eye pain, No redness ENT: No sore throat, No trouble swallowing, No pain on swallowing Respiratory: No cough, No wheezing, No shortness of breath, No dyspnea on exertion Cardiac: No chest pain, No edema, No palpitations Abdomen: + see HPI, + GI bleeding, No pain, No nausea, No vomiting, No diarrhea , No constipation Neuro: No memory loss, No weakness, No numbness/tingling, No vertigo, No balance problems Psych: No depression symptoms, No anxiety, No insomnia Heme: No abnormal bleeding/bruising, No night sweats Endo: No excessive thirst, No excessive urination Skin: No rash, No itch, No new/changing skin lesions, No jaundice Physical Exam Date Time Temp Pulse Resp B/P (MAP) Pulse Ox O2 Delivery O2 Flow Rate FiO2 10/17/17 14:16 197/109 (138) 10/17/17 13:09 36.9 73 18 183/108 (133) 96 Room Air 10/17/17 12:25 65 20 176/108 100 10/17/17 11:16 94 Room Air 10/17/17 11:04 60 18 159/96 94 Room Air 10/17/17 09:10 36.8 70 20 182/102 96 Room Air General Appearance: no apparent distress Eyes: normal inspection, EOMI Neck: supple, no adenopathy, thyroid normal Respiratory/Chest: chest non-tender, lungs clear, normal breath sounds, no accessory muscle use Cardiovascular: regular rate, rhythm, no JVD, + systolic murmur (2/6) Abdomen: normal bowel sounds, non tender, soft, no organomegaly Extremities: normal inspection, no pedal edema, normal capillary refill Neurologic/Psych: alert, normal mood/affect, oriented x 3 Skin: normal color, no jaundice, warm/dry, no rash Rectal exam: on inspection, there was a thrombosed hemorrhoid and on digital exam he was tender and there was recurrence of bleeding, but w/o removal of the entire clot. Laboratory Results Last 24 Hours Test 10/17/17 09:54 White Blood Count 5.42 K/uL Red Blood Count 4.77 M/uL Hemoglobin 14.4 g/dL Hematocrit 41.9 % Mean Corpuscular Volume 87.8 fL Mean Corpuscular Hemoglobin 30.2 pg Mean Corpuscular Hemoglobin Concent 34.4 g/dl Platelet Count 166 K/uL Mean Platelet Volume 11.2 fL Neutrophils (%) (Auto) 78.0 % Lymphocytes (%) (Auto) 11.1 % Monocytes (%) (Auto) 7.9 % Eosinophils (%) (Auto) 1.7 % Basophils (%) (Auto) 0.9 % Neutrophils # (Auto) 4.23 K/uL Lymphocytes # (Auto) 0.60 K/uL Monocytes # (Auto) 0.43 K/uL Eosinophils # (Auto) 0.09 K/uL Basophils # (Auto) 0.05 K/uL RDW Standard Deviation 45.0 fL RDW Coefficient of Variation 14.0 % Immature Granulocyte % (Auto) 0.4 % Immature Granulocyte # (Auto) 0.02 K/uL Prothrombin Time 20.1 SECONDS Prothromb Time International Ratio 1.9 Activated Partial Thromboplast Time 35.2 SECONDS Partial Thromboplastin Ratio 1.4 Sodium Level 140 mmol/L Potassium Level 3.4 mmol/L Chloride Level 107 mmol/L Carbon Dioxide Level 27 mmol/L Anion Gap 6.0 mmol/L Blood Urea Nitrogen 15 mg/dl Creatinine 1.08 mg/dl Est Creatinine Clear Calc Drug Dose 78.6 ml/min Estimated GFR () 78.0 Estimated GFR (Non- 67.3 BUN/Creatinine Ratio 13.8 Random Glucose 92 mg/dl Calcium Level 8.5 mg/dl Magnesium Level 2.3 mg/dl Total Bilirubin 0.8 mg/dl Direct Bilirubin 0.2 mg/dl Aspartate Amino Transf (AST/SGOT) 17 U/L Alanine Aminotransferase (ALT/SGPT) 19 U/L Alkaline Phosphatase 84 U/L Total Protein 6.9 gm/dl Albumin 3.7 gm/dl Lipase 84 U/L Impression Patient is a 72 year old male with rectal bleeding from a thrombosed hemorrhoid. He is hemodynamically stable and small volume bleeding is expected for hemorrhoids. Plan Discussed with the surgery certified professional ergonomist physician chiropractor assistant and with Dr. Pepper who said that tx of the hemorrhoid can be addressed as an OP. Will defer management of the hemorrhoid to primary hospitalist. I performed a history and physical examination of the patient, including specifically on physical exam - no abdominal tenderness. Rectal exam with external, actively bleeding, thrombosed hemorrhoids. I have discussed the patient's management with SHAHIDA Sheets. Please refer to the nurse practitioner's note for the documented findings and plan of care. Patient is on Coumadin, presented with bright red bleeding per rectum/ anus. Patient applies pressure on the bleeding site to slow down the bleeding. His colonoscopy last months showed small polyps and hemorrhoids. Please consult surgery for treatment of thrombosed, bleeding hemorrhoids. Can apply topical lidocaine and Hemorrhoidal cream bid for now. Recall GI if needed.
[2017-10-17 15:35] VITALS: BP 171/97; PULSE 63
[2017-10-17 15:38] LABS: HEMATOCRIT 42.4 % (42-52); HEMOGLOBIN 14.3 g/dL (14.0-18.0)
[2017-10-17 15:45] VITALS: BP 175/90; PULSE 62; TEMP 36.7; O2SAT 97
[2017-10-17] MEDS: CLONIDINE HCL 0.1 MG TAB PO PRN (15:55)
--- NOTE | 2017-10-17 17:34 | CONSULTATION REPORT ---
DATE OF CONSULTATION: 10/17/2017 REASON FOR CONSULTATION: Consult for bleeding hemorrhoids. HISTORY OF PRESENT ILLNESS: The patient is a 72-year-old male who presented to the Emergency Room with significant rectal bleeding after having a bowel movement and found to have internal and external hemorrhoids with probable thrombosed hemorrhoid and some bleeding from this. His history includes a history of Coumadin for atrial fibrillation and apparently aortic valve replacement, apparently he may have had a mitral valve replacement also. His INR was 1.9. His hematocrit this morning was 41.9 and this afternoon 6 hours later was 42. He has had no significant melena, just some staining of the gauze pads. He has had evaluation by the GI team and they feel it is from his hemorrhoids. He had recent colonoscopy on 09/16/[address] Vasques, which showed some small polyps. He does take MiraLax daily. PAST MEDICAL HISTORY: Significant for that he had an aortic valve replacement, atrial fibrillation, coronary artery disease, hyperlipidemia, and hypertension. FAMILY AND SOCIAL HISTORY: Essentially noncontributory. ALLERGIES: He has no known allergies. MEDICATIONS: Include amiodarone, atorvastatin, levothyroxine, lisinopril, metoprolol and warfarin. REVIEW OF SYSTEMS: Other review of systems 10 in all are essentially negative. PHYSICAL EXAMINATION: HEENT: He is well nourished, well developed, atraumatic head. EYES: Sclerae normal. ENT otherwise grossly normal. NECK: Supple. LUNGS: Show no respiratory distress. HEART: Regular rate at the present time. ABDOMEN: Soft. SKIN: Warm without rashes. NEUROLOGICAL: He has normal mood and affect. RECTAL: The perianal and rectal exam shows some mildly prolapsing hemorrhoids with some external hemorrhoids, possibly thrombosed hemorrhoid. There is no active bleeding at the present time, there is some blood on his gauze. ASSESSMENT AND PLAN: A 72-year-old male with rectal bleeding which apparently is coming from hemorrhoids, whether they are thrombosed hemorrhoids or large internal hemorrhoids it is somewhat difficult to ascertain. Normally, I would monitor the patient for recurrence; however, with him needing Coumadin, I suspect that this will happen again. The safest thing may be to stop his Coumadin and place him on heparin, either IV or subcutaneous and then proceed with hemorrhoidectomy in 2-3 days depending on his progress. I have written for a diet at the present time. We will continue to monitor him.
[2017-10-17 20:14] VITALS: BP 124/77; PULSE 62; TEMP 37; O2SAT 94
[2017-10-17] MEDS: METOPROLOL TARTRATE 50 MG TAB PO SCH (20:14)
[2017-10-17] MEDS: QUETIAPINE FUMARATE 25 MG TAB PO SCH (20:15)
[2017-10-17 21:07] LABS: HEMATOCRIT 42.4 % (42-52); HEMOGLOBIN 13.7 g/dL (14.0-18.0)
[2017-10-18] VITALS (7 sets, daily range): BP systolic 160–178; BP diastolic 86–103; PULSE 51–60; TEMP 36.3–37; O2SAT 92–96
[2017-10-18 03:07] LABS: HEMATOCRIT 41.8 % (42-52); HEMOGLOBIN 13.9 g/dL (14.0-18.0); MEAN CELL VOLUME 88.4 fL (80-100); MEAN CORPUSCULAR HEMOGLOBIN 29.4 pg (25-34); MEAN CORPUSCULAR HGB CONC 33.3 g/dl (32-36); MEAN PLATELET VOLUME 11.5 fL (7.4-10.4); PLATELET COUNT 166 K/uL (130-400); RED CELL DISTRIBUTION WIDTH SD 45.3 fL (36.4-46.3); WHITE BLOOD COUNT 5.49 K/uL (4.8-10.8)
[2017-10-18 03:17] LABS: INR 1.6 (0.9-1.1)
[2017-10-18 03:24] LABS: CALCIUM 7.8 mg/dl (8.5-10.1); CREATININE 1.12 mg/dl (0.60-1.40); POTASSIUM 3.5 mmol/L (3.5-5.1)
[2017-10-18] MEDS: SODIUM CHLORIDE 0.9% 1000ML 1,000 ML IV SCH ×2 (03:58→16:39)
--- NOTE | 2017-10-18 05:54 | Surgery Progress Note ---
Surgery Progress Note Date of Service Oct 18, 2017. Subjective H/H at 3 am stable- hct same min bleeding- almost none Objective Vital Signs: Date Time Temp Pulse Resp B/P (MAP) Pulse Ox O2 Delivery O2 Flow Rate FiO2 10/18/17 04:41 36.4 54 18 161/91 (114) 94 Room Air 10/18/17 04:19 Room Air 10/18/17 00:24 36.4 59 18 168/91 (116) 96 Room Air 10/18/17 00:04 Room Air 10/17/17 20:14 37.0 62 18 124/77 (93) 94 Room Air 10/17/17 19:38 Room Air 10/17/17 16:00 Room Air 10/17/17 15:45 36.7 62 18 175/90 (118) 97 Room Air 10/17/17 15:35 63 171/97 (121) 10/17/17 14:16 197/109 (138) 10/17/17 13:09 36.9 73 18 183/108 (133) 96 Room Air 10/17/17 12:25 65 20 176/108 100 10/17/17 11:16 94 Room Air 10/17/17 11:04 60 18 159/96 94 Room Air 10/17/17 09:10 36.8 70 20 182/102 96 Room Air General Appearance: no apparent distress Respiratory/Chest: no respiratory distress Abdomen: soft Incision(s): drainage (min drainage) Laboratory Results: Results Past 24 Hours Test 10/17/17 09:54 10/17/17 15:24 10/17/17 20:47 10/18/17 02:53 Range/Units White Blood Count 5.42 5.49 4.8-10.8 K/uL Red Blood Count 4.77 4.73 4.7-6.1 M/uL Hemoglobin 14.4 14.3 13.7 13.9 14.0-18.0 g/dL Hematocrit 41.9 42.4 42.4 41.8 42-52 % Mean Corpuscular Volume 87.8 88.4 80-100 fL Mean Corpuscular Hemoglobin 30.2 29.4 25-34 pg Mean Corpuscular Hemoglobin Concent 34.4 33.3 32-36 g/dl Platelet Count 166 166 130-400 K/uL Mean Platelet Volume 11.2 11.5 7.4-10.4 fL Neutrophils (%) (Auto) 78.0 % Lymphocytes (%) (Auto) 11.1 % Monocytes (%) (Auto) 7.9 % Eosinophils (%) (Auto) 1.7 % Basophils (%) (Auto) 0.9 % Neutrophils # (Auto) 4.23 1.4-6.5 K/uL Lymphocytes # (Auto) 0.60 1.2-3.4 K/uL Monocytes # (Auto) 0.43 0.11-0.59 K/uL Eosinophils # (Auto) 0.09 0-0.5 K/uL Basophils # (Auto) 0.05 0-0.2 K/uL RDW Standard Deviation 45.0 45.3 36.4-46.3 fL RDW Coefficient of Variation 14.0 14.0 11.5-14.5 % Immature Granulocyte % (Auto) 0.4 % Immature Granulocyte # (Auto) 0.02 0.00-0.02 K/uL Prothrombin Time 20.1 16.7 9.0-12.0 SECONDS Prothromb Time International Ratio 1.9 1.6 0.9-1.1 Activated Partial Thromboplast Time 35.2 21.0-31.0 SECONDS Partial Thromboplastin Ratio 1.4 Sodium Level 140 141 136-145 mmol/L Potassium Level 3.4 3.5 3.5-5.1 mmol/L Chloride Level 107 109 98-107 mmol/L Carbon Dioxide Level 27 25 21-32 mmol/L Anion Gap 6.0 7.0 3-11 mmol/L Blood Urea Nitrogen 15 14 7-18 mg/dl Creatinine 1.08 1.12 0.60-1.40 mg/dl Est Creatinine Clear Calc Drug Dose 78.6 75.8 ml/min Estimated GFR () 78.0 74.6 Estimated GFR (Non- 67.3 64.4 BUN/Creatinine Ratio 13.8 12.5 10-20 Random Glucose 92 88 70-99 mg/dl Calcium Level 8.5 7.8 8.5-10.1 mg/dl Magnesium Level 2.3 1.8-2.4 mg/dl Total Bilirubin 0.8 0.2-1 mg/dl Direct Bilirubin 0.2 0-0.2 mg/dl Aspartate Amino Transf (AST/SGOT) 17 15-37 U/L Alanine Aminotransferase (ALT/SGPT) 19 12-78 U/L Alkaline Phosphatase 84 45-117 U/L Total Protein 6.9 6.4-8.2 gm/dl Albumin 3.7 3.4-5.0 gm/dl Lipase 84 73-393 U/L Assessment & Plan 10/18/17- cont to hold coumadin, add IV/SC heparin plan for hemorrhoidectomy Mon. cont diet and miralax
[2017-10-18] MEDS: LEVOTHYROXINE 25 MCG TAB PO SCH (06:14)
[2017-10-18] MEDS: ATORVASTATIN 20 MG TAB PO SCH (07:53)
[2017-10-18] MEDS: MULTIVITAMIN TAB PO SCH (07:53)
[2017-10-18] MEDS: METOPROLOL TARTRATE 50 MG TAB PO SCH ×2 (07:53→20:28)
[2017-10-18] MEDS: LISINOPRIL 5 MG TAB PO SCH (07:53)
[2017-10-18] MEDS: AMIODARONE 200 MG TAB PO SCH (07:54)
[2017-10-18] MEDS: POLYETHYLENE (MIRALAX) 17 GM PACK PO SCH (08:06)
[2017-10-18 15:09] LABS: HEMOGLOBIN 14.2 g/dL (14.0-18.0)
[2017-10-18] MEDS ORDERED: HEPARIN IV LOW DOSE NO BOLUS SCH (16:54)
[2017-10-18 17:19] LABS: BASO % 0.9 %; BASO ABS # 0.05 K/uL (0-0.2); EOS % 3.1 %; EOS ABS # 0.18 K/uL (0-0.5); HEMATOCRIT 43.2 % (42-52); HEMOGLOBIN 14.5 g/dL (14.0-18.0); IG# 0.01 K/uL (0.00-0.02); LYMPH % 16.6 %; LYMPH ABS # 0.97 K/uL (1.2-3.4); MEAN CELL VOLUME 89.1 fL (80-100); MEAN CORPUSCULAR HEMOGLOBIN 29.9 pg (25-34); MEAN PLATELET VOLUME 11.5 fL (7.4-10.4); MONO % 8.2 %; MONO ABS # 0.48 K/uL (0.11-0.59); NEUT ABS # 4.15 K/uL (1.4-6.5); PLATELET COUNT 168 K/uL (130-400); RED CELL DISTRIBUTION WIDTH CV 14.1 % (11.5-14.5); RED CELL DISTRIBUTION WIDTH SD 45.9 fL (36.4-46.3); WHITE BLOOD COUNT 5.84 K/uL (4.8-10.8)
[2017-10-18] MEDS: HEPARIN 25,000 UNIT/500ML D5W 500 ML IV SCH (17:19)
[2017-10-18 17:22] LABS: MEAN CORPUSCULAR HGB CONC 33.6 g/dl (32-36)
[2017-10-18 17:31] LABS: INR 1.5 (0.9-1.1)
--- NOTE | 2017-10-18 18:11 | Progress Note ---
Internal Med Progress Note Date of Service: Oct 18, 2017. Provider Documentation: SUBJECTIVE: still has some blood per rectum when wiping no nausea or abdominal pain tolerating diet no chest pain or sob hard to hear in room OBJECTIVE: Vital Signs-as noted below Exam: General-alert and oriented. ENT-hard of hearing Neck-no neck masses Lungs-cta b/l no wheezing no crackles present Heart-S1 and S2 heard regular rate and rhythm no murmurs Abdomen-Soft bowel sounds present non tender no distension Extremities-no edema no erythema Neuro-alert and awake moves extremities Lab data as noted below. ASSESSMENT & PLAN: Lower GI bleed On Coumadin inr 1.9 on presentation Presented with bright red bleeding per rectum As per H and P:patient had colonoscopy on 09/16/17 and had 7 polyps removed, internal hemorrhoids were also noted hb stable mostly hemorrhoids bleed as per GI and recommended Surgery evaluation thrombosed hemorrhoids and plan to proceed with surgery as patient on Coumadin and plan for recurrence is high plan for hemorrhoidectomy on Friday to monitor h and h on iv heparin History atrial fibrillation, bioprosthetic aortic and mitral valve replacement Rhythm controlled on amiodarone and rate controlled on metoprolol, holding Coumadin started on iv heparin will monitor. Hypertension On metoprolol and lisinopril hydralazine and clonidine prn will monitor Hypothyroidism on levothyroxine DVT prophylaxis iv heparin Disposition to be determined Vital Signs: Date Time Temp Pulse Resp B/P (MAP) Pulse Ox O2 Delivery O2 Flow Rate FiO2 10/18/17 16:15 Room Air 10/18/17 15:33 36.3 51 20 172/103 (126) 96 10/18/17 12:15 Room Air 10/18/17 11:26 36.6 57 16 170/86 (114) 94 Room Air 10/18/17 08:30 Room Air 10/18/17 07:01 36.6 56 20 170/96 (120) 96 Room Air 10/18/17 04:41 36.4 54 18 161/91 (114) 94 Room Air 10/18/17 04:19 Room Air 10/18/17 00:24 36.4 59 18 168/91 (116) 96 Room Air 10/18/17 00:04 Room Air 10/17/17 20:14 37.0 62 18 124/77 (93) 94 Room Air 10/17/17 19:38 Room Air Lab Results: Results Past 24 Hours Test 10/17/17 20:47 10/18/17 02:53 10/18/17 15:03 10/18/17 17:03 Range/Units Hemoglobin 13.7 13.9 14.2 14.5 14.0-18.0 g/dL Hematocrit 42.4 41.8 42.0 43.2 42-52 % White Blood Count 5.49 5.84 4.8-10.8 K/uL Red Blood Count 4.73 4.85 4.7-6.1 M/uL Mean Corpuscular Volume 88.4 89.1 80-100 fL Mean Corpuscular Hemoglobin 29.4 29.9 25-34 pg Mean Corpuscular Hemoglobin Concent 33.3 33.6 32-36 g/dl RDW Standard Deviation 45.3 45.9 36.4-46.3 fL RDW Coefficient of Variation 14.0 14.1 11.5-14.5 % Platelet Count 166 168 130-400 K/uL Mean Platelet Volume 11.5 11.5 7.4-10.4 fL Prothrombin Time 16.7 15.8 9.0-12.0 SECONDS Prothromb Time International Ratio 1.6 1.5 0.9-1.1 Sodium Level 141 136-145 mmol/L Potassium Level 3.5 3.5-5.1 mmol/L Chloride Level 109 98-107 mmol/L Carbon Dioxide Level 25 21-32 mmol/L Anion Gap 7.0 3-11 mmol/L Blood Urea Nitrogen 14 7-18 mg/dl Creatinine 1.12 0.60-1.40 mg/dl Est Creatinine Clear Calc Drug Dose 75.8 ml/min Estimated GFR () 74.6 Estimated GFR (Non- 64.4 BUN/Creatinine Ratio 12.5 10-20 Random Glucose 88 70-99 mg/dl Calcium Level 7.8 8.5-10.1 mg/dl Neutrophils (%) (Auto) 71.0 % Lymphocytes (%) (Auto) 16.6 % Monocytes (%) (Auto) 8.2 % Eosinophils (%) (Auto) 3.1 % Basophils (%) (Auto) 0.9 % Neutrophils # (Auto) 4.15 1.4-6.5 K/uL Lymphocytes # (Auto) 0.97 1.2-3.4 K/uL Monocytes # (Auto) 0.48 0.11-0.59 K/uL Eosinophils # (Auto) 0.18 0-0.5 K/uL Basophils # (Auto) 0.05 0-0.2 K/uL Immature Granulocyte % (Auto) 0.2 % Immature Granulocyte # (Auto) 0.01 0.00-0.02 K/uL Activated Partial Thromboplast Time 32.0 21.0-31.0 SECONDS Partial Thromboplastin Ratio 1.2
[2017-10-18] MEDS: CLONIDINE HCL 0.1 MG TAB PO PRN (20:27)
[2017-10-18] MEDS: QUETIAPINE FUMARATE 25 MG TAB PO SCH (20:28)
[2017-10-18 23:47] LABS: PTT PATIENT 40.6 SECONDS (21.0-31.0)
[2017-10-19] MEDS ORDERED: HEPARIN IV BOLUS 4,500 UNIT in SYRINGE 0 ML IV ONE (01:45)
[2017-10-19 03:56] VITALS: BP 144/82; PULSE 55; TEMP 36.6; O2SAT 95
[2017-10-19] MEDS: LEVOTHYROXINE 25 MCG TAB PO SCH (06:02)
[2017-10-19 07:06] VITALS: BP 172/99; PULSE 61; TEMP 36.9; O2SAT 93
[2017-10-19] MEDS ORDERED: NURSING VERBAL MED ORDER ONE (08:00)
[2017-10-19] MEDS: METOPROLOL TARTRATE 50 MG TAB PO SCH ×2 (08:01→20:48)
[2017-10-19] MEDS: LISINOPRIL 5 MG TAB PO SCH (08:01)
[2017-10-19] MEDS: ATORVASTATIN 20 MG TAB PO SCH (08:01)
[2017-10-19] MEDS: AMIODARONE 200 MG TAB PO SCH (08:01)
[2017-10-19] MEDS: POLYETHYLENE (MIRALAX) 17 GM PACK PO SCH (08:01)
[2017-10-19] MEDS: MULTIVITAMIN TAB PO SCH (08:01)
[2017-10-19 08:16] LABS: HEMATOCRIT 44.8 % (42-52); MEAN CELL VOLUME 88.4 fL (80-100); MEAN CORPUSCULAR HEMOGLOBIN 29.6 pg (25-34); MEAN CORPUSCULAR HGB CONC 33.5 g/dl (32-36); MEAN PLATELET VOLUME 11.6 fL (7.4-10.4); PLATELET COUNT 176 K/uL (130-400); RED CELL DISTRIBUTION WIDTH CV 14.1 % (11.5-14.5); RED CELL DISTRIBUTION WIDTH SD 45.4 fL (36.4-46.3); WHITE BLOOD COUNT 6.41 K/uL (4.8-10.8)
[2017-10-19 08:32] LABS: INR 1.4 (0.9-1.1)
[2017-10-19 08:39] LABS: PTT PATIENT 66.7 SECONDS (21.0-31.0)
[2017-10-19 08:43] LABS: CALCIUM 8.4 mg/dl (8.5-10.1); CREATININE 1.17 mg/dl (0.60-1.40); POTASSIUM 3.6 mmol/L (3.5-5.1)
[2017-10-19 08:45] LABS: PHOSPHORUS 2.9 mg/dl (2.5-4.9)
[2017-10-19 11:29] VITALS: BP 154/85; PULSE 60; TEMP 36.9; O2SAT 93
--- NOTE | 2017-10-19 11:57 | Surgery Progress Note ---
Surgery Progress Note Date of Service Oct 19, 2017. Subjective very stable hct stable Objective Vital Signs: Date Time Temp Pulse Resp B/P (MAP) Pulse Ox O2 Delivery O2 Flow Rate FiO2 10/19/17 11:29 36.9 60 16 154/85 (108) 93 Room Air 10/19/17 08:30 Room Air 10/19/17 07:06 36.9 61 18 172/99 (123) 93 10/19/17 04:19 Room Air 10/19/17 03:56 36.6 55 18 144/82 (102) 95 Room Air 10/19/17 00:00 Room Air 10/18/17 23:15 36.5 60 18 160/92 (114) 92 Room Air 10/18/17 20:01 Room Air 10/18/17 18:42 37.0 60 20 178/96 (123) 95 10/18/17 16:15 Room Air 10/18/17 15:33 36.3 51 20 172/103 (126) 96 10/18/17 12:15 Room Air General Appearance: no apparent distress Laboratory Results: Results Past 24 Hours Test 10/18/17 15:03 10/18/17 17:03 10/18/17 23:24 10/19/17 07:45 Range/Units Hemoglobin 14.2 14.5 15.0 14.0-18.0 g/dL Hematocrit 42.0 43.2 44.8 42-52 % White Blood Count 5.84 6.41 4.8-10.8 K/uL Red Blood Count 4.85 5.07 4.7-6.1 M/uL Mean Corpuscular Volume 89.1 88.4 80-100 fL Mean Corpuscular Hemoglobin 29.9 29.6 25-34 pg Mean Corpuscular Hemoglobin Concent 33.6 33.5 32-36 g/dl Platelet Count 168 176 130-400 K/uL Mean Platelet Volume 11.5 11.6 7.4-10.4 fL Neutrophils (%) (Auto) 71.0 % Lymphocytes (%) (Auto) 16.6 % Monocytes (%) (Auto) 8.2 % Eosinophils (%) (Auto) 3.1 % Basophils (%) (Auto) 0.9 % Neutrophils # (Auto) 4.15 1.4-6.5 K/uL Lymphocytes # (Auto) 0.97 1.2-3.4 K/uL Monocytes # (Auto) 0.48 0.11-0.59 K/uL Eosinophils # (Auto) 0.18 0-0.5 K/uL Basophils # (Auto) 0.05 0-0.2 K/uL RDW Standard Deviation 45.9 45.4 36.4-46.3 fL RDW Coefficient of Variation 14.1 14.1 11.5-14.5 % Immature Granulocyte % (Auto) 0.2 % Immature Granulocyte # (Auto) 0.01 0.00-0.02 K/uL Prothrombin Time 15.8 14.6 9.0-12.0 SECONDS Prothromb Time International Ratio 1.5 1.4 0.9-1.1 Activated Partial Thromboplast Time 32.0 40.6 66.7 21.0-31.0 SECONDS Partial Thromboplastin Ratio 1.2 1.6 2.6 Sodium Level 139 136-145 mmol/L Potassium Level 3.6 3.5-5.1 mmol/L Chloride Level 107 98-107 mmol/L Carbon Dioxide Level 27 21-32 mmol/L Anion Gap 4.0 3-11 mmol/L Blood Urea Nitrogen 18 7-18 mg/dl Creatinine 1.17 0.60-1.40 mg/dl Est Creatinine Clear Calc Drug Dose 60.8 ml/min Estimated GFR () 70.8 Estimated GFR (Non- 61.1 BUN/Creatinine Ratio 15.0 10-20 Random Glucose 88 70-99 mg/dl Calcium Level 8.4 8.5-10.1 mg/dl Phosphorus Level 2.9 2.5-4.9 mg/dl Magnesium Level 2.2 1.8-2.4 mg/dl Assessment & Plan 10/19/17- for hemorrhoidectomy tomorrow- on heparin- will stop at 3 am /2 10/18/17- cont to hold coumadin, add IV/SC heparin plan for hemorrhoidectomy Mon. cont diet and miralax 10/18/17- cont to hold coumadin, add IV/SC heparin plan for hemorrhoidectomy Mon. cont diet and miralax
--- NOTE | 2017-10-19 15:26 | Anesthesiology Progress Note ---
Anesthesia Progress Note Date of Service Oct 19, 2017. Progress Notes The patient is a 72 y/o male scheduled for a hemorrhoidectomy tomorrow. PMH includes CAD, afib, HTN, aortic and mitral valve repair, aortic aneurysm, GERD, possible stroke 2 years ago, hypothyroidism, and BPH. EKG showed SR with 1st degree block, prolonged QT, and nonspecific T wave changes. Labs show INR 1.4 and PTT 66.7. On exam the patient has limited neck extension. He is a MP 2 airway with poor dentition. Lungs are clear. Heart is RRR with S2 click. Carotids are negative for bruits. He is an ASA 3. He was consented to general anesthesia. The patient was counseled to remain NPO after midnight except for sips of water with pills. I spoke with Dr. Pepper about obtaining his most recent echocardiogram report. He will place it in the patient's chart.
[2017-10-19 15:37] VITALS: BP 137/79; PULSE 61; TEMP 37.2; O2SAT 95
[2017-10-19] MEDS: HEPARIN 25,000 UNIT/500ML D5W 500 ML IV SCH (15:42)
--- NOTE | 2017-10-19 18:29 | Progress Note ---
Internal Med Progress Note Date of Service: Oct 19, 2017. Provider Documentation: SUBJECTIVE: resting comfortably moved bowels today and there was no blood in it. eating fine no chest pain or sob no abdominal pain 'awaiting surgery in am OBJECTIVE: Vital Signs-as noted below Exam: General-alert and oriented. ENT-hard of hearing Neck-no neck masses Lungs-cta b/l no wheezing no crackles present Heart-S1 and S2 heard regular rate and rhythm no murmurs Abdomen-Soft bowel sounds present non tender no distension Extremities-no edema no erythema Neuro-alert and awake moves extremities Lab data as noted below. ASSESSMENT & PLAN: 72M on Coumadin for a fib presented with lower Gi bleed and found to have large thrombosed hemorrhoids. Plan for hemorrhoidectomy on FRIDAY by surgery. Meanwhile on iv heparin to stop prior to surgery. Surgery ;likes to monitor on iv heparoin post procedure for couple of days and resume Coumadin. Lower GI bleed On Coumadin inr 1.9 on presentation Presented with bright red bleeding per rectum As per H and P:patient had colonoscopy on 09/16/17 and had 7 polyps removed, internal hemorrhoids were also noted hb stable mostly hemorrhoids bleed as per GI and recommended Surgery evaluation thrombosed hemorrhoids and plan to proceed with surgery as patient on Coumadin and plan for recurrence is high plan for hemorrhoidectomy on Friday to monitor h and h on iv heparin to hold iv heparin prior to surgery and to restart it as per surgery recommendations appreciate surgery inputs stable currently History atrial fibrillation, bioprosthetic aortic and mitral valve replacement Rhythm controlled on amiodarone and rate controlled on metoprolol, holding Coumadin on iv heparin will monitor. Hypertension On metoprolol and lisinopril hydralazine and clonidine prn will monitor Hypothyroidism on levothyroxine DVT prophylaxis iv heparin Disposition to be determined pt/ot prior to discharge Vital Signs: Date Time Temp Pulse Resp B/P (MAP) Pulse Ox O2 Delivery O2 Flow Rate FiO2 10/19/17 18:54 36.8 62 20 149/85 (106) 94 10/19/17 16:15 Room Air 10/19/17 15:37 37.2 61 18 137/79 (98) 95 Room Air 10/19/17 12:00 Room Air 10/19/17 11:29 36.9 60 16 154/85 (108) 93 Room Air 10/19/17 08:30 Room Air 10/19/17 07:06 36.9 61 18 172/99 (123) 93 10/19/17 04:19 Room Air 10/19/17 03:56 36.6 55 18 144/82 (102) 95 Room Air 10/19/17 00:00 Room Air 10/18/17 23:15 36.5 60 18 160/92 (114) 92 Room Air 10/18/17 20:01 Room Air Lab Results: Results Past 24 Hours Test 10/18/17 23:24 10/19/17 07:45 Range/Units Activated Partial Thromboplast Time 40.6 66.7 21.0-31.0 SECONDS Partial Thromboplastin Ratio 1.6 2.6 White Blood Count 6.41 4.8-10.8 K/uL Red Blood Count 5.07 4.7-6.1 M/uL Hemoglobin 15.0 14.0-18.0 g/dL Hematocrit 44.8 42-52 % Mean Corpuscular Volume 88.4 80-100 fL Mean Corpuscular Hemoglobin 29.6 25-34 pg Mean Corpuscular Hemoglobin Concent 33.5 32-36 g/dl RDW Standard Deviation 45.4 36.4-46.3 fL RDW Coefficient of Variation 14.1 11.5-14.5 % Platelet Count 176 130-400 K/uL Mean Platelet Volume 11.6 7.4-10.4 fL Prothrombin Time 14.6 9.0-12.0 SECONDS Prothromb Time International Ratio 1.4 0.9-1.1 Sodium Level 139 136-145 mmol/L Potassium Level 3.6 3.5-5.1 mmol/L Chloride Level 107 98-107 mmol/L Carbon Dioxide Level 27 21-32 mmol/L Anion Gap 4.0 3-11 mmol/L Blood Urea Nitrogen 18 7-18 mg/dl Creatinine 1.17 0.60-1.40 mg/dl Est Creatinine Clear Calc Drug Dose 60.8 ml/min Estimated GFR () 70.8 Estimated GFR (Non- 61.1 BUN/Creatinine Ratio 15.0 10-20 Random Glucose 88 70-99 mg/dl Calcium Level 8.4 8.5-10.1 mg/dl Phosphorus Level 2.9 2.5-4.9 mg/dl Magnesium Level 2.2 1.8-2.4 mg/dl
[2017-10-19 18:54] VITALS: BP 149/85; PULSE 62; TEMP 36.8; O2SAT 94
[2017-10-19] MEDS: QUETIAPINE FUMARATE 25 MG TAB PO SCH (20:48)
[2017-10-19 22:53] VITALS: BP 174/94; PULSE 60; TEMP 36.5; O2SAT 96
[2017-10-20] VITALS (13 sets, daily range): BP systolic 134–180; BP diastolic 78–96; PULSE 59–80; TEMP 36.3–36.8; O2SAT 93–96
[2017-10-20] MEDS ORDERED: [UNRECOGNIZED DRUG - REMARK] ONE (00:30)
[2017-10-20] MEDS ORDERED: [UNRECOGNIZED DRUG - REMARK] ONE (03:00)
[2017-10-20] MEDS: LEVOTHYROXINE 25 MCG TAB PO SCH (05:58)
[2017-10-20] MEDS ORDERED: CEFOXITIN IV 2,000 MG in DEXTROSE 5% 50ML 50 ML IV SCH (06:00)
--- NOTE | 2017-10-20 06:02 | Surgery Progress Note ---
Surgery Progress Note Date of Service Oct 20, 2017. Subjective no acute changes Objective Vital Signs: Date Time Temp Pulse Resp B/P (MAP) Pulse Ox O2 Delivery O2 Flow Rate FiO2 10/20/17 04:27 36.4 59 18 180/92 (121) 94 Room Air 10/20/17 04:05 Room Air 10/20/17 00:00 Room Air 10/19/17 22:53 36.5 60 18 174/94 (120) 96 Room Air 10/19/17 20:00 Room Air 10/19/17 18:54 36.8 62 20 149/85 (106) 94 10/19/17 16:15 Room Air 10/19/17 15:37 37.2 61 18 137/79 (98) 95 Room Air 10/19/17 12:00 Room Air 10/19/17 11:29 36.9 60 16 154/85 (108) 93 Room Air 10/19/17 08:30 Room Air 10/19/17 07:06 36.9 61 18 172/99 (123) 93 Laboratory Results: Results Past 24 Hours Test 10/19/17 07:45 10/20/17 04:44 Range/Units White Blood Count 6.41 4.8-10.8 K/uL Red Blood Count 5.07 4.7-6.1 M/uL Hemoglobin 15.0 14.0-18.0 g/dL Hematocrit 44.8 42-52 % Mean Corpuscular Volume 88.4 80-100 fL Mean Corpuscular Hemoglobin 29.6 25-34 pg Mean Corpuscular Hemoglobin Concent 33.5 32-36 g/dl RDW Standard Deviation 45.4 36.4-46.3 fL RDW Coefficient of Variation 14.1 11.5-14.5 % Platelet Count 176 130-400 K/uL Mean Platelet Volume 11.6 7.4-10.4 fL Prothrombin Time 14.6 9.0-12.0 SECONDS Prothromb Time International Ratio 1.4 0.9-1.1 Activated Partial Thromboplast Time 66.7 21.0-31.0 SECONDS Partial Thromboplastin Ratio 2.6 Sodium Level 139 136-145 mmol/L Potassium Level 3.6 3.5-5.1 mmol/L Chloride Level 107 98-107 mmol/L Carbon Dioxide Level 27 21-32 mmol/L Anion Gap 4.0 3-11 mmol/L Blood Urea Nitrogen 18 7-18 mg/dl Creatinine 1.17 0.60-1.40 mg/dl Est Creatinine Clear Calc Drug Dose 60.8 ml/min Estimated GFR () 70.8 Estimated GFR (Non- 61.1 BUN/Creatinine Ratio 15.0 10-20 Random Glucose 88 70-99 mg/dl Calcium Level 8.4 8.5-10.1 mg/dl Phosphorus Level 2.9 2.5-4.9 mg/dl Magnesium Level 2.2 1.8-2.4 mg/dl Assessment & Plan 10/20/17- for OR this am- hemorrhoidectomy, stop IV Heparin- begin 12 hrs postop at low dose - no boluses and coumadin- will need 2-3 days to monitor for bleeding/ coag levels 10/19/17- for hemorrhoidectomy tomorrow- on heparin- will stop at 3 am 09/1910/18/17- cont to hold coumadin, add IV/SC heparin plan for hemorrhoidectomy Mon. cont diet and miralax 10/19/17- for hemorrhoidectomy tomorrow- on heparin- will stop at 3 am 09/1910/18/17- cont to hold coumadin, add IV/SC heparin plan for hemorrhoidectomy Mon. cont diet and miralax
[2017-10-20 06:47] LABS: PTT PATIENT 30.3 SECONDS (21.0-31.0)
[2017-10-20] MEDS: LISINOPRIL 5 MG TAB PO SCH (07:01)
[2017-10-20] MEDS: MULTIVITAMIN TAB PO SCH (07:01)
[2017-10-20] MEDS: METOPROLOL TARTRATE 50 MG TAB PO SCH ×2 (07:01→20:41)
[2017-10-20] MEDS: POLYETHYLENE (MIRALAX) 17 GM PACK PO SCH (07:02)
[2017-10-20] MEDS: AMIODARONE 200 MG TAB PO SCH (07:02)
[2017-10-20] MEDS: ATORVASTATIN 20 MG TAB PO SCH (07:02)
[2017-10-20] MEDS ORDERED: FENTANYL CITRATE INJ 50 MCG/1 ML 2 ML VIAL IV PRN (08:30)
[2017-10-20] MEDS ORDERED: LABETALOL HCL IV 5 MG/ML 20ML IV PRN (08:30)
[2017-10-20] MEDS ORDERED: ONDANSETRON INJ 2 MG/ML 2 ML VIAL IV PRN ×2 (08:30→10:30)
[2017-10-20] MEDS ORDERED: PHENYLEPHRINE 100MCG/ML 5ML SYR IV PRN (08:30)
[2017-10-20] MEDS ORDERED: ATROPINE SULFATE 0.1 MG/ML 5ML SYR IV PRN (08:30)
[2017-10-20] MEDS ORDERED: HYDROmorphone INJ 1 MG/ML SYR IV PRN (08:30)
[2017-10-20] MEDS ORDERED: EpHEDrine SULFATE INJ 50 MG/ML AMP IV PRN (08:30)
[2017-10-20] MEDS ORDERED: ONDANSETRON INJ 2 MG/ML 2 ML VIAL ONE (08:44)
[2017-10-20] MEDS ORDERED: LIDOCAINE HCL 2% 2 ML VIAL (20MG/ML) ONE (08:44)
[2017-10-20] MEDS ORDERED: ROCURONIUM BROMIDE 10 MG/ML 5 ML VIAL IV ONE (08:44)
[2017-10-20] MEDS ORDERED: DEXAMETHASONE SOD INJ 4 MG/ML VIAL ONE (08:44)
[2017-10-20] MEDS ORDERED: PROPOFOL IV EMULSION 10 MG/ML 20 ML VIAL IV ONE (08:44)
[2017-10-20] MEDS ORDERED: FENTANYL CITRATE INJ 50 MCG/1 ML 2 ML VIAL ONE (08:45)
[2017-10-20] MEDS ORDERED: CEFAZOLIN SOD 2000MG/15 ML IV PUSH IV ONE (08:46)
[2017-10-20] MEDS ORDERED: BUPIVACAINE 0.5 % 5 MG/1 ML MPF 30ML VIAL ONE (09:23)
[2017-10-20] MEDS ORDERED: HYDROmorphone INJ 0.5 MG/0.5 ML SYR IV PRN (09:30)
[2017-10-20] MEDS ORDERED: EpHEDrine SULFATE 50MG/5ML SYR ONE (10:00)
[2017-10-20] MEDS ORDERED: GLYCOPYRROLATE INJ 0.2 MG/ML VIAL ONE (10:00)
[2017-10-20] MEDS ORDERED: NEOSTIGMINE METHYLSULFATE 5 MG/5 ML SYR ONE (10:00)
--- NOTE | 2017-10-20 10:11 | [facility] Operative Report ---
Operative Report Operative Date Oct 20, 2017. Pre-Operative Diagnosis Bleeding hemorrhoids Post-Operative Diagnosis Same as preop Procedure(s) Performed Hemorrhoidectomy Surgeon Dr. Somers Generation Manager Surgeon(s) Tim De Jesus PA-C Estimated Blood Loss 10 cc Specimens A: hemorrhoid Drains None Anesthesia Type General Complication(s) none Disposition Recovery Room / PACU I attest to the content of the Intraoperative Record and any orders documented therein. Any exceptions are noted below.
[2017-10-20] MEDS ORDERED: PROMETHAZINE HCL INJ 25 MG in SODIUM CHLORIDE 0.9% 50ML 50 ML IV PRN (10:30)
[2017-10-20] MEDS ORDERED: LACTATED RINGER'S 1000ML 1,000 ML IV SCH (10:30)
[2017-10-20] MEDS ORDERED: HYDROmorphone INJ 2 MG/ML SYR/VIAL IM PRN (10:30)
[2017-10-20] MEDS ORDERED: HYDROmorphone INJ 0.5 MG/0.5 ML SYR IM PRN (10:30)
[2017-10-20] MEDS ORDERED: HYDROCODONE/ACETAMIN 5/325MG TAB PO PRN (10:30)
--- NOTE | 2017-10-20 10:38 | OPERATIVE REPORT ---
DATE OF OPERATION: 10/20/2017 NAME OF OPERATION: Excision of right posterolateral internal hemorrhoid and ligation of external hemorrhoids. STAFF SURGEON: Shiva Somers MD. VISUAL INSPECTOR: Humble Mcrae PA-C. ANESTHESIA: General. POSITION: Prone. DESCRIPTION OF THE PROCEDURE: The patient was brought into the operating room and placed on the operating table in the prone position after appropriate anesthetic. His buttocks were taped apart. On inspection, after appropriate prepping and draping, the patient had a relatively large internal hemorrhoid at the right posterolateral position. He also had multiple smaller external hemorrhoids, none of which appeared to be thrombosed or bleeding. The area near the anoderm of the hemorrhoid did appear to be somewhat excoriated and I suspect this is the area of bleeding from the patient's history. At this point, the right posterolateral hemorrhoid was excised using a LigaSure and oversewn using 2-0 chromic suture. I was somewhat concerned trying to excise too much tissue in the area, therefore, the external hemorrhoids were ligated in 2-3 areas. After appropriate observation with no significant bleeding, dressing was applied and the patient transferred to recovery room in stable condition. I attest to the content of the Intraoperative Record and any orders documented therein. Any exception s are noted below.
--- NOTE | 2017-10-20 11:03 | Anesthesiology Progress Note ---
Anesthesia Post Op Note Date & Time Oct 20, 2017 at 11:03 Vital Signs Pain Intensity: 0 Vital Signs Past 12 Hours Date Time Temp Pulse Resp B/P (MAP) Pulse Ox O2 Delivery O2 Flow Rate FiO2 10/20/17 11:00 36.4 58 14 154/88 96 Nasal Cannula 3 10/20/17 10:50 57 14 149/85 97 Nasal Cannula 3 10/20/17 10:40 56 14 155/86 99 Oxymask 3 10/20/17 10:30 55 14 159/87 99 Oxymask 5 10/20/17 10:23 36.2 56 14 173/98 98 Oxymask 5 10/20/17 08:30 Room Air 10/20/17 07:02 36.8 60 18 174/93 (120) 95 Room Air 10/20/17 04:27 36.4 59 18 180/92 (121) 94 Room Air 10/20/17 04:05 Room Air 10/20/17 00:00 Room Air Notes Mental Status: alert / awake / arousable, participated in evaluation Pt Amnestic to Procedure: Yes Nausea / Vomiting: adequately controlled Pain: adequately controlled Airway Patency, RR, SpO2: stable & adequate BP & HR: stable & adequate Hydration State: stable & adequate Anesthetic Complications: no major complications apparent Awake, doing well, no complaints. VSS.
[2017-10-20] MEDS ORDERED: PROMETHAZINE HCL INJ 12.5 MG in SODIUM CHLORIDE 0.9% 50ML 50 ML IV PRN (11:30)
[2017-10-20] MEDS: WARFARIN SOD 7.5 MG TAB PO SCH (15:49)
--- NOTE | 2017-10-20 15:53 | Progress Note ---
Medicine Progress Note Date & Time of Visit: Oct 20, 2017 at 15:44. Subjective s/p Hemorrhoidectomy today seen in room 356 awake, alert, oriented x 3 comfortable, in good spirits states he feels fine overall, pleased that he is very comfortable after surgery no recurrence of rectal bleeding no chest pain, dyspnea, palpitations, dizziness no other symptoms Objective Last 8 Hrs Date Time Temp Pulse Resp B/P (MAP) Pulse Ox O2 Delivery O2 Flow Rate FiO2 10/20/17 15:28 36.6 69 16 152/87 (108) 94 Nasal Cannula 2.0 10/20/17 14:14 36.6 70 20 158/87 (110) 93 Nasal Cannula 2.0 10/20/17 13:15 67 16 148/83 (104) 95 2.0 10/20/17 12:25 36.5 68 16 153/88 (109) 96 2.0 10/20/17 11:46 60 14 161/96 (117) 95 Nasal Cannula 2.0 10/20/17 11:25 36.3 62 14 156/79 (104) 94 Nasal Cannula 2.0 10/20/17 11:25 Nasal Cannula 10/20/17 11:25 94 Nasal Cannula 2.0 10/20/17 11:20 59 14 145/89 96 Nasal Cannula 3 10/20/17 11:10 59 14 152/88 96 Nasal Cannula 3 10/20/17 11:00 36.4 58 14 154/88 96 Nasal Cannula 3 10/20/17 10:50 57 14 149/85 97 Nasal Cannula 3 10/20/17 10:40 56 14 155/86 99 Oxymask 3 10/20/17 10:30 55 14 159/87 99 Oxymask 5 10/20/17 10:23 36.2 56 14 173/98 98 Oxymask 5 10/20/17 08:30 Room Air Physical Exam: General- oriented x 3, not in distress, speaks in sentences with no effort Head- atraumatic Eyes- PERRL, EOMI, anicteric ENT- oropharynx clear Neck- supple, no JVD, no adenopathy, no thyromegaly; carotids +2/2 Lungs- clear to auscultation bilaterally Heart- regular rhythm; no murmur, normal rate Abdomen- normal bowel sounds, soft, nontender, no masses Extremities- no pretibial edema, no calf tenderness; peripheral pulses intact Neuro- alert, oriented x 3; no gross focal deficits Skin- warm & dry Laboratory Results: Last 24 Hours Test 10/20/17 06:29 Activated Partial Thromboplast Time 30.3 SECONDS Partial Thromboplastin Ratio 1.2 Assessment & Plan RECTAL BLEEDING LIKELY FROM HEMORRHOID IN THE SETTING OF COUMADIN USE Presented with bright red bleeding per rectum As per H and P:patient had colonoscopy on 09/16/17 and had 7 polyps removed, internal hemorrhoids were also noted hb stable 10/20/17: s/p Hemorrhoidectomy by Dr. Somers --ok to resume Heparin and coumadin per Dr. Somersmonitoring and evaluation advisor closely History atrial fibrillation, bioprosthetic aortic and mitral valve replacement Rhythm controlled on amiodarone and rate controlled on metoprolol, --ok to resume Heparin and coumadin per Dr. Somersmonitoring and evaluation advisor INR Hypertension On metoprolol and lisinopril hydralazine and clonidine prn -- monitor Hypothyroidism on levothyroxine DVT prophylaxis iv heparin Disposition usually lives at home with PT ordered Current Inpatient Medications: Current Inpatient Medications Medications (Trade) Dose Ordered Sig/Neymar Route Start Time Stop Time Status Last Admin Dose Admin Acetaminophen (Tylenol Tab) 650 mg Q4H PRN PO 10/17/17 12:00 11/16/17 11:59 Ondansetron HCl (Zofran Inj) 4 mg Q6H PRN IV 10/17/17 12:00 11/16/17 11:59 Amiodarone HCl (Cordarone Tab) 200 mg DAILY PO 10/18/17 09:00 11/17/17 08:59 10/20/17 07:02 200 MG Atorvastatin Calcium (Lipitor Tab) 20 mg DAILY PO 10/18/17 09:00 11/17/17 08:59 10/20/17 07:02 20 MG Levothyroxine Sodium (Synthroid Tab) 25 mcg DAILYBB PO 10/18/17 06:30 11/17/17 06:29 10/19/17 06:02 25 MCG Lisinopril (Zestril Tab) 5 mg DAILY PO 10/18/17 09:00 11/17/17 08:59 10/20/17 07:01 5 MG Metoprolol Tartrate (Lopressor Tab) 50 mg BID PO 10/17/17 21:00 11/16/17 20:59 10/20/17 07:01 50 MG Multivitamins (Multivitamin Tab) 1 tab DAILY PO 10/18/17 09:00 11/17/17 08:59 10/20/17 07:01 1 TAB Quetiapine Fumarate (seroQUEL TAB) 50 mg HS PO 10/17/17 21:00 11/16/17 20:59 10/19/17 20:48 50 MG Miscellaneous (Iv Fluids Completed) 1 ea PRN PRN N/A 10/17/17 13:30 10/17/18 13:29 Hydralazine HCl (HydrALAZINE INJ) 10 mg Q6H PRN IV. 10/17/17 14:30 11/16/17 14:29 Clonidine HCl (Catapres Tab) 0.1 mg Q4 PRN PO 10/17/17 16:00 11/16/17 15:59 10/18/17 20:27 0.1 MG Polyethylene (Miralax Powder Packet) 17 gm DAILY PO 10/18/17 09:00 11/17/17 08:59 10/19/17 08:01 17 GM Cefazolin Sodium 1000 mg/Syringe 7.5 ml @ 2.5 mls/min Q8H IV 10/20/17 16:00 10/30/17 15:59 Hydromorphone HCl (Dilaudid Inj) 0.5 mg Q3H PRN IM 10/20/17 10:30 11/03/17 10:29 Hydromorphone HCl (Dilaudid Inj) 1 mg Q3H PRN IM 10/20/17 10:30 11/03/17 10:29 Acetaminophen/ Hydrocodone Bitart ([place] 5/325 Tab) 1 tab Q4 PRN PO 10/20/17 10:30 11/03/17 10:29 Acetaminophen/ Hydrocodone Bitart ([place] 5/325 Tab) 2 tab Q4 PRN PO 10/20/17 10:30 11/03/17 10:29 Magnesium Hydroxide (Milk Of Magnesia Susp) 30 ml BID PO 10/20/17 21:00 11/19/17 20:59 Promethazine HCl 25 mg/Sodium Chloride 51 ml @ 204 mls/hr Q6H PRN IV 10/20/17 10:30 11/19/17 10:29 Senna/Docusate Sodium (Senokot S Tab) 1 tab BID PO 10/20/17 21:00 11/19/17 20:59 Warfarin Sodium (Coumadin Tab) 7.5 mg DAILY@16 PO 10/20/17 16:00 11/19/17 15:59 Heparin Sodium/ Dextrose 500 ml @ 20 mls/hr Q24H IV 10/20/17 22:00 11/19/17 21:59 Promethazine HCl 12.5 mg/Sodium Chloride 50.5 ml @ 204 mls/hr Q6H PRN IV 10/20/17 11:30 11/19/17 11:29
[2017-10-20] MEDS: CEFAZOLIN IV 1,000 MG in SYRINGE 0 ML IV SCH ×2 (16:57→23:52)
[2017-10-20] MEDS: MAGNESIUM HYDROXIDE SUSP 30 ML UDC PO SCH (20:41)
[2017-10-20] MEDS: QUETIAPINE FUMARATE 25 MG TAB PO SCH (20:42)
[2017-10-20] MEDS ORDERED: DOCUSATE SODIUM/SENNA 50/8.6MG TAB PO SCH (21:00)
[2017-10-20] MEDS: HEPARIN 25,000 UNIT/500ML D5W 500 ML IV SCH (22:39)
[2017-10-21] VITALS (8 sets, daily range): BP systolic 138–176; BP diastolic 76–104; PULSE 66–82; TEMP 36.4–37.1; O2SAT 92–96
[2017-10-21] MEDS: HYDROCODONE/ACETAMIN 5/325MG TAB PO PRN ×2 (00:04→17:40)
[2017-10-21] MEDS ORDERED: POLYETHYLENE (MIRALAX) 17 GM PACK PO ONE (04:22)
[2017-10-21] MEDS ORDERED: DOCUSATE SODIUM/SENNA 50/8.6MG TAB PO ONE (04:22)
[2017-10-21] MEDS ORDERED: LACTULOSE SYRUP 30 GM/45 ML UDP PO STA (04:36)
[2017-10-21] MEDS: LEVOTHYROXINE 25 MCG TAB PO SCH (06:04)
[2017-10-21 06:11] LABS: HEMATOCRIT 41.2 % (42-52); MEAN CELL VOLUME 88.6 fL (80-100); MEAN CORPUSCULAR HEMOGLOBIN 30.1 pg (25-34); MEAN PLATELET VOLUME 11.4 fL (7.4-10.4); PLATELET COUNT 175 K/uL (130-400); RED CELL DISTRIBUTION WIDTH CV 14.2 % (11.5-14.5); RED CELL DISTRIBUTION WIDTH SD 46.2 fL (36.4-46.3); WHITE BLOOD COUNT 11.75 K/uL (4.8-10.8)
--- NOTE | 2017-10-21 06:22 | Surgery Progress Note ---
Surgery Progress Note Date of Service Oct 21, 2017. Subjective mild pain no bm- given meds to help Objective Vital Signs: Date Time Temp Pulse Resp B/P (MAP) Pulse Ox O2 Delivery O2 Flow Rate FiO2 10/21/17 05:30 139/76 (97) 10/21/17 04:08 96 Room Air 2.0 10/21/17 03:00 36.4 73 16 176/104 (128) 96 Room Air 10/20/17 23:50 96 Room Air 2.0 10/20/17 23:12 36.7 74 16 134/79 (97) 96 Room Air 10/20/17 20:40 80 154/86 (108) 10/20/17 18:47 36.8 70 18 143/78 (99) 94 Nasal Cannula 2.0 10/20/17 15:53 94 Nasal Cannula 2.0 10/20/17 15:28 36.6 69 16 152/87 (108) 94 Nasal Cannula 2.0 10/20/17 14:14 36.6 70 20 158/87 (110) 93 Nasal Cannula 2.0 10/20/17 13:15 67 16 148/83 (104) 95 2.0 10/20/17 12:25 36.5 68 16 153/88 (109) 96 2.0 10/20/17 11:46 60 14 161/96 (117) 95 Nasal Cannula 2.0 10/20/17 11:25 36.3 62 14 156/79 (104) 94 Nasal Cannula 2.0 10/20/17 11:25 Nasal Cannula 10/20/17 11:25 94 Nasal Cannula 2.0 10/20/17 11:20 59 14 145/89 96 Nasal Cannula 3 10/20/17 11:10 59 14 152/88 96 Nasal Cannula 3 10/20/17 11:00 36.4 58 14 154/88 96 Nasal Cannula 3 10/20/17 10:50 57 14 149/85 97 Nasal Cannula 3 10/20/17 10:40 56 14 155/86 99 Oxymask 3 10/20/17 10:30 55 14 159/87 99 Oxymask 5 10/20/17 10:23 36.2 56 14 173/98 98 Oxymask 5 10/20/17 08:30 Room Air 10/20/17 07:02 36.8 60 18 174/93 (120) 95 Room Air General Appearance: no apparent distress Respiratory/Chest: no respiratory distress Incision(s): intact Laboratory Results: Results Past 24 Hours Test 10/20/17 06:29 10/21/17 05:43 Range/Units Activated Partial Thromboplast Time 30.3 21.0-31.0 SECONDS Partial Thromboplastin Ratio 1.2 White Blood Count 11.75 4.8-10.8 K/uL Red Blood Count 4.65 4.7-6.1 M/uL Hemoglobin 14.0 14.0-18.0 g/dL Hematocrit 41.2 42-52 % Mean Corpuscular Volume 88.6 80-100 fL Mean Corpuscular Hemoglobin 30.1 25-34 pg Mean Corpuscular Hemoglobin Concent 34.0 32-36 g/dl RDW Standard Deviation 46.2 36.4-46.3 fL RDW Coefficient of Variation 14.2 11.5-14.5 % Platelet Count 175 130-400 K/uL Mean Platelet Volume 11.4 7.4-10.4 fL Assessment & Plan 10/21/17- s/p hemorrhoidectomy, ligation of Ext hemorrhoids low dose IV Hep and warfarin- 7.5 mg/day monitor progress 2-3 days- ambulate 10/20/17- for OR this am- hemorrhoidectomy, stop IV Heparin- begin 12 hrs postop at low dose - no boluses and coumadin- will need 2-3 days to monitor for bleeding/ coag levels 10/19/17- for hemorrhoidectomy tomorrow- on heparin- will stop at 3 am 09/1910/18/17- cont to hold coumadin, add IV/SC heparin plan for hemorrhoidectomy Mon. cont diet and miralax 10/20/17- for OR this am- hemorrhoidectomy, stop IV Heparin- begin 12 hrs postop at low dose - no boluses and coumadin- will need 2-3 days to monitor for bleeding/ coag levels 10/19/17- for hemorrhoidectomy tomorrow- on heparin- will stop at 3 am 09/1910/18/17- cont to hold coumadin, add IV/SC heparin plan for hemorrhoidectomy Mon. cont diet and miralax
[2017-10-21 06:27] LABS: INR 1.4 (0.9-1.1); PTT PATIENT 37.6 SECONDS (21.0-31.0)
[2017-10-21 06:41] LABS: CALCIUM 8.8 mg/dl (8.5-10.1); CREATININE 1.2 mg/dl (0.60-1.40); POTASSIUM 3.5 mmol/L (3.5-5.1)
[2017-10-21] MEDS: CEFAZOLIN IV 1,000 MG in SYRINGE 0 ML IV SCH ×2 (08:48→15:18)
[2017-10-21] MEDS: PSYLLIUM 58.6% PWD PACK S\\F PO SCH (08:48)
[2017-10-21] MEDS: MAGNESIUM HYDROXIDE SUSP 30 ML UDC PO SCH (08:48)
[2017-10-21] MEDS: ATORVASTATIN 20 MG TAB PO SCH (08:49)
[2017-10-21] MEDS: MULTIVITAMIN TAB PO SCH (08:49)
[2017-10-21] MEDS: METOPROLOL TARTRATE 50 MG TAB PO SCH ×2 (08:49→21:06)
[2017-10-21] MEDS: LISINOPRIL 5 MG TAB PO SCH (08:50)
[2017-10-21] MEDS: AMIODARONE 200 MG TAB PO SCH (08:50)
[2017-10-21] MEDS ORDERED: NURSING VERBAL MED ORDER ONE (11:00)
[2017-10-21] MEDS: HEPARIN 25,000 UNIT/500ML D5W 500 ML IV SCH ×2 (11:17→15:25)
[2017-10-21] MEDS ORDERED: LACTULOSE SYRUP 30 GM/45 ML UDP PO PRN (12:15)
[2017-10-21] MEDS ORDERED: LACTULOSE SYRUP 30 GM/45 ML UDP PO ONE (12:30)
[2017-10-21] MEDS: WARFARIN SOD 7.5 MG TAB PO SCH (15:20)
--- NOTE | 2017-10-21 19:24 | Progress Note ---
Medicine Progress Note Date & Time of Visit: Oct 21, 2017 at 19:21. Subjective seen resting in chair, comfortable has had 3-4 BMs late afternoon semiformed but bloody has mild rectal pain no chest pain, dyspnea, palpitations, dizziness no abdominal pain no other symptoms Objective Last 8 Hrs Date Time Temp Pulse Resp B/P (MAP) Pulse Ox O2 Delivery O2 Flow Rate FiO2 10/21/17 15:25 Room Air 10/21/17 15:07 36.7 66 16 138/78 (98) 92 Room Air 10/21/17 12:00 37.0 67 18 150/83 (105) 96 Room Air Physical Exam: General- oriented x 3, not in distress, speaks in sentences with no effort Eyes- anicteric Neck- supple, no JVD Lungs- clear breath sounds bilaterally Heart- regular rhythm; no murmur, normal rate Abdomen- normal bowel sounds, soft, nontender Extremities- no pretibial edema, no calf tenderness Neuro- alert, oriented x 3; no gross focal deficits Skin- warm & dry Laboratory Results: Last 24 Hours Test 10/21/17 05:43 White Blood Count 11.75 K/uL Red Blood Count 4.65 M/uL Hemoglobin 14.0 g/dL Hematocrit 41.2 % Mean Corpuscular Volume 88.6 fL Mean Corpuscular Hemoglobin 30.1 pg Mean Corpuscular Hemoglobin Concent 34.0 g/dl RDW Standard Deviation 46.2 fL RDW Coefficient of Variation 14.2 % Platelet Count 175 K/uL Mean Platelet Volume 11.4 fL Prothrombin Time 14.7 SECONDS Prothromb Time International Ratio 1.4 Activated Partial Thromboplast Time 37.6 SECONDS Partial Thromboplastin Ratio 1.4 Sodium Level 140 mmol/L Potassium Level 3.5 mmol/L Chloride Level 106 mmol/L Carbon Dioxide Level 26 mmol/L Anion Gap 8.0 mmol/L Blood Urea Nitrogen 19 mg/dl Creatinine 1.20 mg/dl Est Creatinine Clear Calc Drug Dose 59.3 ml/min Estimated GFR () 68.6 Estimated GFR (Non- 59.2 BUN/Creatinine Ratio 15.6 Random Glucose 137 mg/dl Calcium Level 8.8 mg/dl Assessment & Plan RECTAL BLEEDING LIKELY FROM HEMORRHOID IN THE SETTING OF COUMADIN USE Presented with bright red bleeding per rectum As per H and P:patient had colonoscopy on 09/16/17 and had 7 polyps removed, internal hemorrhoids were also noted hb stable 10/20/17: s/p Hemorrhoidectomy by Dr. Somers 10/21/17: patient has been having BMs- semiformed- covered with blood- bright red will d/c Heparin repeat Hg tonight monitor History atrial fibrillation, bioprosthetic aortic and mitral valve replacement Rhythm controlled on amiodarone and rate controlled on metoprolol -- INR 1.4 -- hold Heparin tonight HR regular no cardiac symptoms Hypertension On metoprolol and lisinopril hydralazine and clonidine prn -- monitor Hypothyroidism on levothyroxine DVT prophylaxis d/c Heparin for now Disposition usually lives at home with PT ordered Current Inpatient Medications: Current Inpatient Medications Medications (Trade) Dose Ordered Sig/Neymar Route Start Time Stop Time Status Last Admin Dose Admin Acetaminophen (Tylenol Tab) 650 mg Q4H PRN PO 10/17/17 12:00 11/16/17 11:59 Ondansetron HCl (Zofran Inj) 4 mg Q6H PRN IV 10/17/17 12:00 11/16/17 11:59 Amiodarone HCl (Cordarone Tab) 200 mg DAILY PO 10/18/17 09:00 11/17/17 08:59 10/21/17 08:50 200 MG Atorvastatin Calcium (Lipitor Tab) 20 mg DAILY PO 10/18/17 09:00 11/17/17 08:59 10/21/17 08:49 20 MG Levothyroxine Sodium (Synthroid Tab) 25 mcg DAILYBB PO 10/18/17 06:30 11/17/17 06:29 10/21/17 06:04 25 MCG Lisinopril (Zestril Tab) 5 mg DAILY PO 10/18/17 09:00 11/17/17 08:59 10/21/17 08:50 5 MG Metoprolol Tartrate (Lopressor Tab) 50 mg BID PO 10/17/17 21:00 11/16/17 20:59 10/21/17 08:49 50 MG Multivitamins (Multivitamin Tab) 1 tab DAILY PO 10/18/17 09:00 11/17/17 08:59 10/21/17 08:49 1 TAB Quetiapine Fumarate (seroQUEL TAB) 50 mg HS PO 10/17/17 21:00 11/16/17 20:59 10/20/17 20:42 50 MG Miscellaneous (Iv Fluids Completed) 1 ea PRN PRN N/A 10/17/17 13:30 10/17/18 13:29 Hydralazine HCl (HydrALAZINE INJ) 10 mg Q6H PRN IV. 10/17/17 14:30 11/16/17 14:29 10/21/17 03:10 10 MG Clonidine HCl (Catapres Tab) 0.1 mg Q4 PRN PO 10/17/17 16:00 11/16/17 15:59 10/18/17 20:27 0.1 MG Cefazolin Sodium 1000 mg/Syringe 7.5 ml @ 2.5 mls/min Q8H IV 10/20/17 16:00 10/30/17 15:59 10/21/17 15:18 2.5 MLS/MIN Hydromorphone HCl (Dilaudid Inj) 0.5 mg Q3H PRN IM 10/20/17 10:30 11/03/17 10:29 Hydromorphone HCl (Dilaudid Inj) 1 mg Q3H PRN IM 10/20/17 10:30 11/03/17 10:29 Acetaminophen/ Hydrocodone Bitart ([place] 5/325 Tab) 1 tab Q4 PRN PO 10/20/17 10:30 11/03/17 10:29 10/21/17 17:40 1 TAB Acetaminophen/ Hydrocodone Bitart ([place] 5/325 Tab) 2 tab Q4 PRN PO 10/20/17 10:30 11/03/17 10:29 Magnesium Hydroxide (Milk Of Magnesia Susp) 30 ml BID PO 10/20/17 21:00 11/19/17 20:59 10/21/17 08:48 30 ML Promethazine HCl 25 mg/Sodium Chloride 51 ml @ 204 mls/hr Q6H PRN IV 10/20/17 10:30 11/19/17 10:29 Warfarin Sodium (Coumadin Tab) 7.5 mg DAILY@16 PO 10/20/17 16:00 11/19/17 15:59 10/21/17 15:20 7.5 MG Heparin Sodium/ Dextrose 500 ml @ 24 mls/hr [id number] IV 10/20/17 22:00 11/19/17 21:59 10/21/17 15:25 24 MLS/HR Promethazine HCl 12.5 mg/Sodium Chloride 50.5 ml @ 204 mls/hr Q6H PRN IV 10/20/17 11:30 11/19/17 11:29 Senna/Docusate Sodium (Senokot S Tab) 1 tab BID PO 10/21/17 21:00 11/19/17 20:59 Polyethylene (Miralax Powder Packet) 17 gm DAILY PO 10/22/17 09:00 11/17/17 08:59 Psyllium Hydrophilic Mucilloid (Metamucil Powder) 1 pkt QAM PO 10/21/17 09:00 11/20/17 08:59 10/21/17 08:48 1 PKT Lactulose (Chronulac Syrup) 30 gm TID PRN PO 10/21/17 12:15 11/20/17 12:14
[2017-10-21 19:58] LABS: HEMATOCRIT 43.3 % (42-52)
[2017-10-21] MEDS ORDERED: DOCUSATE SODIUM/SENNA 50/8.6MG TAB PO SCH (21:00)
[2017-10-21] MEDS: QUETIAPINE FUMARATE 25 MG TAB PO SCH (21:06)
[2017-10-22] MEDS: CEFAZOLIN IV 1,000 MG in SYRINGE 0 ML IV SCH (00:04)
[2017-10-22 02:21] LABS: HEMATOCRIT 41.6 % (42-52); HEMOGLOBIN 13.8 g/dL (14.0-18.0)
[2017-10-22 06:00] LABS: BASO % 0.2 %; BASO ABS # 0.02 K/uL (0-0.2); EOS % 0.1 %; EOS ABS # 0.01 K/uL (0-0.5); HEMOGLOBIN 13.7 g/dL (14.0-18.0); IG# 0.03 K/uL (0.00-0.02); LYMPH % 7.1 %; LYMPH ABS # 0.88 K/uL (1.2-3.4); MEAN CELL VOLUME 89.5 fL (80-100); MEAN CORPUSCULAR HEMOGLOBIN 29.9 pg (25-34); MEAN CORPUSCULAR HGB CONC 33.4 g/dl (32-36); MONO % 8.9 %; NEUT % 83.5 %; NEUT ABS # 10.37 K/uL (1.4-6.5); PLATELET COUNT 165 K/uL (130-400); WHITE BLOOD COUNT 12.41 K/uL (4.8-10.8)
[2017-10-22 06:04] LABS: INR 2.4 (0.9-1.1); PTT PATIENT 34.3 SECONDS (21.0-31.0)
[2017-10-22] MEDS: HYDROCODONE/ACETAMIN 5/325MG TAB PO PRN (06:04)
[2017-10-22] MEDS: LEVOTHYROXINE 25 MCG TAB PO SCH (06:04)
[2017-10-22 06:29] LABS: CALCIUM 8.3 mg/dl (8.5-10.1); CREATININE 1.16 mg/dl (0.60-1.40); POTASSIUM 3.9 mmol/L (3.5-5.1)
--- NOTE | 2017-10-22 06:34 | Surgery Progress Note ---
Surgery Progress Note Date of Service Oct 22, 2017. Subjective had multiple bms and some bleeding yesterday- Heparin stopped PT/INR therapeutic no acute bleeding overnight Objective Vital Signs: Date Time Temp Pulse Resp B/P (MAP) Pulse Ox O2 Delivery O2 Flow Rate FiO2 10/21/17 23:40 95 Room Air 2.0 10/21/17 23:03 37.1 82 16 153/84 (107) 95 Room Air 10/21/17 15:25 Room Air 10/21/17 15:07 36.7 66 16 138/78 (98) 92 Room Air 10/21/17 12:00 37.0 67 18 150/83 (105) 96 Room Air 10/21/17 07:28 37.0 74 20 154/88 (110) 93 Room Air 10/21/17 07:25 Room Air General Appearance: no apparent distress Respiratory/Chest: no respiratory distress Incision(s): drainage (expected some bloody anorectal drainage) Laboratory Results: Results Past 24 Hours Test 10/21/17 19:50 10/22/17 01:56 10/22/17 05:32 Range/Units Hemoglobin 15.0 13.8 13.7 14.0-18.0 g/dL Hematocrit 43.3 41.6 41.0 42-52 % White Blood Count 12.41 4.8-10.8 K/uL Red Blood Count 4.58 4.7-6.1 M/uL Mean Corpuscular Volume 89.5 80-100 fL Mean Corpuscular Hemoglobin 29.9 25-34 pg Mean Corpuscular Hemoglobin Concent 33.4 32-36 g/dl Platelet Count 165 130-400 K/uL Neutrophils (%) (Auto) 83.5 % Lymphocytes (%) (Auto) 7.1 % Monocytes (%) (Auto) 8.9 % Eosinophils (%) (Auto) 0.1 % Basophils (%) (Auto) 0.2 % Neutrophils # (Auto) 10.37 1.4-6.5 K/uL Lymphocytes # (Auto) 0.88 1.2-3.4 K/uL Monocytes # (Auto) 1.10 0.11-0.59 K/uL Eosinophils # (Auto) 0.01 0-0.5 K/uL Basophils # (Auto) 0.02 0-0.2 K/uL Immature Granulocyte % (Auto) 0.2 % Immature Granulocyte # (Auto) 0.03 0.00-0.02 K/uL Prothrombin Time 24.8 9.0-12.0 SECONDS Prothromb Time International Ratio 2.4 0.9-1.1 Activated Partial Thromboplast Time 34.3 21.0-31.0 SECONDS Partial Thromboplastin Ratio 1.3 Sodium Level 141 136-145 mmol/L Potassium Level 3.9 3.5-5.1 mmol/L Chloride Level 107 98-107 mmol/L Carbon Dioxide Level 27 21-32 mmol/L Anion Gap 7.0 3-11 mmol/L Blood Urea Nitrogen 24 7-18 mg/dl Creatinine 1.16 0.60-1.40 mg/dl Est Creatinine Clear Calc Drug Dose 61.3 ml/min Estimated GFR () 71.5 Estimated GFR (Non- 61.7 BUN/Creatinine Ratio 20.4 10-20 Random Glucose 95 70-99 mg/dl Calcium Level 8.3 8.5-10.1 mg/dl Assessment & Plan 10/22/17- will need to be careful with warfarin- I expect some bleeding from surgical area which could become serious if INR too high- need to monitor carefully- probable safe to d/c tomorrow if ok today 10/21/17- s/p hemorrhoidectomy, ligation of Ext hemorrhoids low dose IV Hep and warfarin- 7.5 mg/day monitor progress 2-3 days- ambulate 10/20/17- for OR this am- hemorrhoidectomy, stop IV Heparin- begin 12 hrs postop at low dose - no boluses and coumadin- will need 2-3 days to monitor for bleeding/ coag levels 10/19/17- for hemorrhoidectomy tomorrow- on heparin- will stop at 3 am 09/1910/18/17- cont to hold coumadin, add IV/SC heparin plan for hemorrhoidectomy Mon. cont diet and miralax 10/21/17- s/p hemorrhoidectomy, ligation of Ext hemorrhoids low dose IV Hep and warfarin- 7.5 mg/day monitor progress 2-3 days- ambulate 10/20/17- for OR this am- hemorrhoidectomy, stop IV Heparin- begin 12 hrs postop at low dose - no boluses and coumadin- will need 2-3 days to monitor for bleeding/ coag levels 10/19/17- for hemorrhoidectomy tomorrow- on heparin- will stop at 3 am /10/18/17- cont to hold coumadin, add IV/SC heparin plan for hemorrhoidectomy Mon. cont diet and miralax
[2017-10-22 07:45] VITALS: BP 109/64; PULSE 68; TEMP 37.2; O2SAT 94
[2017-10-22] MEDS: MULTIVITAMIN TAB PO SCH (08:48)
[2017-10-22] MEDS: PSYLLIUM 58.6% PWD PACK S\\F PO SCH (08:48)
[2017-10-22] MEDS: METOPROLOL TARTRATE 50 MG TAB PO SCH ×2 (08:49→20:38)
[2017-10-22] MEDS: ATORVASTATIN 20 MG TAB PO SCH (08:49)
[2017-10-22] MEDS: AMIODARONE 200 MG TAB PO SCH (08:49)
[2017-10-22] MEDS: LISINOPRIL 5 MG TAB PO SCH (08:50)
[2017-10-22 08:52] VITALS: BP 106/60; PULSE 69
[2017-10-22] MEDS ORDERED: POLYETHYLENE (MIRALAX) 17 GM PACK PO SCH (09:00)
[2017-10-22 16:27] VITALS: BP 127/77; PULSE 65; TEMP 37
--- NOTE | 2017-10-22 17:23 | Progress Note ---
Medicine Progress Note Date & Time of Visit: Oct 22, 2017 at 17:19. Subjective Seen resting in bed comfortable in good spirits States he feels better compared to last night No bowel movements this morning, has occasional clinical spotting/rectal bleed No abdominal pain Denies chest pain shortness of breath palpitations dizziness No other symptoms Objective Last 8 Hrs Date Time Temp Pulse Resp B/P (MAP) Pulse Ox O2 Delivery O2 Flow Rate FiO2 10/22/17 16:27 37.0 65 16 127/77 (94) 10/22/17 15:20 Room Air Physical Exam: General- oriented x 3, not in distress, speaks in sentences with no effort Eyes- anicteric Neck- supple, no JVD Lungs- clear BS bilaterally, no rales or wheezes Heart- regular rhythm; no murmur, normal rate Abdomen- normal bowel sounds, soft, nontender Extremities- no pretibial edema, no calf tenderness Neuro- alert, oriented x 3; no gross focal deficits Skin- warm & dry Laboratory Results: Last 24 Hours Test 10/21/17 19:50 10/22/17 01:56 10/22/17 05:32 Hemoglobin 15.0 g/dL 13.8 g/dL 13.7 g/dL Hematocrit 43.3 % 41.6 % 41.0 % White Blood Count 12.41 K/uL Red Blood Count 4.58 M/uL Mean Corpuscular Volume 89.5 fL Mean Corpuscular Hemoglobin 29.9 pg Mean Corpuscular Hemoglobin Concent 33.4 g/dl Platelet Count 165 K/uL Neutrophils (%) (Auto) 83.5 % Lymphocytes (%) (Auto) 7.1 % Monocytes (%) (Auto) 8.9 % Eosinophils (%) (Auto) 0.1 % Basophils (%) (Auto) 0.2 % Neutrophils # (Auto) 10.37 K/uL Lymphocytes # (Auto) 0.88 K/uL Monocytes # (Auto) 1.10 K/uL Eosinophils # (Auto) 0.01 K/uL Basophils # (Auto) 0.02 K/uL Immature Granulocyte % (Auto) 0.2 % Immature Granulocyte # (Auto) 0.03 K/uL Prothrombin Time 24.8 SECONDS Prothromb Time International Ratio 2.4 Activated Partial Thromboplast Time 34.3 SECONDS Partial Thromboplastin Ratio 1.3 Sodium Level 141 mmol/L Potassium Level 3.9 mmol/L Chloride Level 107 mmol/L Carbon Dioxide Level 27 mmol/L Anion Gap 7.0 mmol/L Blood Urea Nitrogen 24 mg/dl Creatinine 1.16 mg/dl Est Creatinine Clear Calc Drug Dose 61.3 ml/min Estimated GFR () 71.5 Estimated GFR (Non- 61.7 BUN/Creatinine Ratio 20.4 Random Glucose 95 mg/dl Calcium Level 8.3 mg/dl Assessment & Plan RECTAL BLEEDING LIKELY FROM HEMORRHOID IN THE SETTING OF COUMADIN USE Presented with bright red bleeding per rectum As per H and P:patient had colonoscopy on 09/16/17 and had 7 polyps removed, internal hemorrhoids were also noted hb stable 10/20/17: s/p Hemorrhoidectomy by Dr. Somers 10/21/17: patient has been having BMs- semiformed- covered with blood- bright red will d/c Heparin repeat Hg tonight monitor 10/22/2017 Rectal bleeding resolving Discontinue laxatives for today No heparin today INR 2.4, has received warfarin 7.5 mg p.o. 2 days, anticipate INR will continue to go higher, hold Coumadin INR check daily History atrial fibrillation, bioprosthetic aortic and mitral valve replacement Rhythm controlled on amiodarone and rate controlled on metoprolol INR 2.4, has received warfarin 7.5 mg p.o. 2 days, anticipate INR will continue to go higher, hold Coumadin INR check daily HR regular no cardiac symptoms Hypertension On metoprolol and lisinopril hydralazine and clonidine prn -- monitor Hypothyroidism on levothyroxine DVT prophylaxis d/c Heparin hold coumadin INR 2.4 Disposition usually lives at home with PT OT ordered Anticipate discharge to home when cleared by surgery and medically stable likely 1-2 days Current Inpatient Medications: Current Inpatient Medications Medications (Trade) Dose Ordered Sig/Neymar Route Start Time Stop Time Status Last Admin Dose Admin Acetaminophen (Tylenol Tab) 650 mg Q4H PRN PO 10/17/17 12:00 11/16/17 11:59 Ondansetron HCl (Zofran Inj) 4 mg Q6H PRN IV 10/17/17 12:00 11/16/17 11:59 Amiodarone HCl (Cordarone Tab) 200 mg DAILY PO 10/18/17 09:00 4/30/18 08:59 10/22/17 08:49 200 MG Atorvastatin Calcium (Lipitor Tab) 20 mg DAILY PO 10/18/17 09:00 11/17/17 08:59 10/22/17 08:49 20 MG Levothyroxine Sodium (Synthroid Tab) 25 mcg DAILYBB PO 10/18/17 06:30 11/17/17 06:29 10/22/17 06:04 25 MCG Lisinopril (Zestril Tab) 5 mg DAILY PO 10/18/17 09:00 11/17/17 08:59 10/22/17 08:50 5 MG Metoprolol Tartrate (Lopressor Tab) 50 mg BID PO 10/17/17 21:00 11/16/17 20:59 10/22/17 08:49 50 MG Multivitamins (Multivitamin Tab) 1 tab DAILY PO 10/18/17 09:00 11/17/17 08:59 10/22/17 08:48 1 TAB Quetiapine Fumarate (seroQUEL TAB) 50 mg HS PO 10/17/17 21:00 11/16/17 20:59 10/21/17 21:06 50 MG Miscellaneous (Iv Fluids Completed) 1 ea PRN PRN N/A 10/17/17 13:30 10/17/18 13:29 Hydralazine HCl (HydrALAZINE INJ) 10 mg Q6H PRN IV. 10/17/17 14:30 11/16/17 14:29 10/21/17 03:10 10 MG Clonidine HCl (Catapres Tab) 0.1 mg Q4 PRN PO 10/17/17 16:00 11/16/17 15:59 10/18/17 20:27 0.1 MG Hydromorphone HCl (Dilaudid Inj) 0.5 mg Q3H PRN IM 10/20/17 10:30 11/03/17 10:29 Hydromorphone HCl (Dilaudid Inj) 1 mg Q3H PRN IM 10/20/17 10:30 11/03/17 10:29 Acetaminophen/ Hydrocodone Bitart ([place] 5/325 Tab) 1 tab Q4 PRN PO 10/20/17 10:30 11/03/17 10:29 10/22/17 06:04 1 TAB Acetaminophen/ Hydrocodone Bitart ([place] 5/325 Tab) 2 tab Q4 PRN PO 10/20/17 10:30 11/03/17 10:29 Promethazine HCl 25 mg/Sodium Chloride 51 ml @ 204 mls/hr Q6H PRN IV 10/20/17 10:30 11/19/17 10:29 Promethazine HCl 12.5 mg/Sodium Chloride 50.5 ml @ 204 mls/hr Q6H PRN IV 10/20/17 11:30 11/19/17 11:29 Psyllium Hydrophilic Mucilloid (Metamucil Powder) 1 pkt QAM PO 10/21/17 09:00 11/20/17 08:59 10/22/17 08:48 1 PKT Lactulose (Chronulac Syrup) 30 gm TID PRN PO 10/21/17 12:15 11/20/17 12:14
[2017-10-22] MEDS: QUETIAPINE FUMARATE 25 MG TAB PO SCH (20:38)
[2017-10-22 22:55] VITALS: BP 138/79; PULSE 69; TEMP 37.4; O2SAT 93
[2017-10-22 23:40] VITALS: O2SAT 93
[2017-10-23] MEDS: LEVOTHYROXINE 25 MCG TAB PO SCH (05:48)
[2017-10-23 07:08] LABS: HEMATOCRIT 38.3 % (42-52); HEMOGLOBIN 12.9 g/dL (14.0-18.0); MEAN CELL VOLUME 90.3 fL (80-100); MEAN CORPUSCULAR HEMOGLOBIN 30.4 pg (25-34); MEAN CORPUSCULAR HGB CONC 33.7 g/dl (32-36); MEAN PLATELET VOLUME 11.7 fL (7.4-10.4); PLATELET COUNT 147 K/uL (130-400); RED CELL DISTRIBUTION WIDTH SD 49.2 fL (36.4-46.3); WHITE BLOOD COUNT 8.84 K/uL (4.8-10.8)
[2017-10-23 07:23] LABS: INR 2.2 (0.9-1.1); PTT PATIENT 42.5 SECONDS (21.0-31.0)
[2017-10-23] MEDS ORDERED: LACTULOSE SYRUP 30 GM/45 ML UDP PO STA (07:28)
--- NOTE | 2017-10-23 07:34 | Surgery Progress Note ---
Surgery Progress Note Date of Service Oct 23, 2017. Subjective no acute bleeding, labs pending no bm yesterday Objective Vital Signs: Date Time Temp Pulse Resp B/P (MAP) Pulse Ox O2 Delivery O2 Flow Rate FiO2 10/22/17 23:40 93 Room Air 2.0 10/22/17 22:55 37.4 69 16 138/79 (98) 93 Room Air 10/22/17 16:27 37.0 65 16 127/77 (94) 10/22/17 15:20 Room Air 10/22/17 08:52 69 106/60 (75) 10/22/17 08:00 Room Air 10/22/17 07:45 37.2 68 16 109/64 (79) 94 Room Air General Appearance: no apparent distress Respiratory/Chest: no respiratory distress Incision(s): intact Laboratory Results: Results Past 24 Hours Test 10/23/17 06:52 Range/Units White Blood Count 8.84 4.8-10.8 K/uL Red Blood Count 4.24 4.7-6.1 M/uL Hemoglobin 12.9 14.0-18.0 g/dL Hematocrit 38.3 42-52 % Mean Corpuscular Volume 90.3 80-100 fL Mean Corpuscular Hemoglobin 30.4 25-34 pg Mean Corpuscular Hemoglobin Concent 33.7 32-36 g/dl RDW Standard Deviation 49.2 36.4-46.3 fL RDW Coefficient of Variation 15.0 11.5-14.5 % Platelet Count 147 130-400 K/uL Mean Platelet Volume 11.7 7.4-10.4 fL Prothrombin Time 22.9 9.0-12.0 SECONDS Prothromb Time International Ratio 2.2 0.9-1.1 Activated Partial Thromboplast Time 42.5 21.0-31.0 SECONDS Partial Thromboplastin Ratio 1.6 Assessment & Plan 10/23/17- will try to encourage bowel movement with lactulose and miralax, SEn S ( at home also ). Check labs , adjust coumadin. monitor for bleeding 10/22/17- will need to be careful with warfarin- I expect some bleeding from surgical area which could become serious if INR too high- need to monitor carefully- probable safe to d/c tomorrow if ok today 10/21/17- s/p hemorrhoidectomy, ligation of Ext hemorrhoids low dose IV Hep and warfarin- 7.5 mg/day monitor progress 2-3 days- ambulate 10/20/17- for OR this am- hemorrhoidectomy, stop IV Heparin- begin 12 hrs postop at low dose - no boluses and coumadin- will need 2-3 days to monitor for bleeding/ coag levels 10/19/17- for hemorrhoidectomy tomorrow- on heparin- will stop at 3 am 09/1910/18/17- cont to hold coumadin, add IV/SC heparin plan for hemorrhoidectomy Mon. cont diet and miralax 10/22/17- will need to be careful with warfarin- I expect some bleeding from surgical area which could become serious if INR too high- need to monitor carefully- probable safe to d/c tomorrow if ok today 10/21/17- s/p hemorrhoidectomy, ligation of Ext hemorrhoids low dose IV Hep and warfarin- 7.5 mg/day monitor progress 2-3 days- ambulate 10/20/17- for OR this am- hemorrhoidectomy, stop IV Heparin- begin 12 hrs postop at low dose - no boluses and coumadin- will need 2-3 days to monitor for bleeding/ coag levels 10/19/17- for hemorrhoidectomy tomorrow- on heparin- will stop at 3 am 09/1910/18/17- cont to hold coumadin, add IV/SC heparin plan for hemorrhoidectomy Mon. cont diet and miralax
[2017-10-23 07:38] LABS: CALCIUM 8.2 mg/dl (8.5-10.1); CREATININE 1.1 mg/dl (0.60-1.40); POTASSIUM 3.8 mmol/L (3.5-5.1)
[2017-10-23 07:41] VITALS: BP 135/83; PULSE 66; TEMP 37; O2SAT 93
[2017-10-23] MEDS ORDERED: LACTULOSE SYRUP 10 GM/15 ML BTL 473 ML PO PRN (08:15)
[2017-10-23] MEDS: POLYETHYLENE (MIRALAX) 17 GM PACK PO SCH (08:29)
[2017-10-23] MEDS: PSYLLIUM 58.6% PWD PACK S\\F PO SCH (08:29)
[2017-10-23] MEDS: DOCUSATE SODIUM/SENNA 50/8.6MG TAB PO SCH ×2 (08:29→21:00)
[2017-10-23] MEDS: LISINOPRIL 5 MG TAB PO SCH (08:30)
[2017-10-23] MEDS: ATORVASTATIN 20 MG TAB PO SCH (08:30)
[2017-10-23] MEDS: METOPROLOL TARTRATE 50 MG TAB PO SCH ×2 (08:30→21:01)
[2017-10-23] MEDS: AMIODARONE 200 MG TAB PO SCH (08:30)
[2017-10-23] MEDS: MULTIVITAMIN TAB PO SCH (08:30)
[2017-10-23] MEDS ORDERED: LACTULOSE SYRUP 10 GM/15 ML BTL 473 ML PO SCH (14:30)
[2017-10-23 15:15] VITALS: BP 155/90; PULSE 74; TEMP 37.2; O2SAT 93
[2017-10-23] MEDS ORDERED: WARFARIN SOD 3 MG TAB PO SCH (16:00)
--- NOTE | 2017-10-23 17:50 | Progress Note ---
Medicine Progress Note Date & Time of Visit: Oct 23, 2017 at 17:47. Subjective Seen resting in bed comfortable in good spirits No BMs Has intermittent small rectal bleeds, but pain improving daily No chest pain, shortness of breath, dizziness, palpitations No other symptoms Objective Last 8 Hrs Date Time Temp Pulse Resp B/P (MAP) Pulse Ox O2 Delivery O2 Flow Rate FiO2 10/23/17 15:15 37.2 74 18 155/90 (111) 93 Room Air 10/23/17 15:10 Room Air Physical Exam: General- oriented x 3, not in distress, speaks in sentences with no effort Eyes- anicteric Neck- no JVD Lungs- clear breath sounds bilaterally Heart- regular rhythm; no murmur, normal rate Abdomen- normal bowel sounds, soft, nontender Extremities- no pretibial edema, no calf tenderness Neuro- alert, oriented x 3; no gross focal deficits Skin- warm & dry Laboratory Results: Last 24 Hours Test 10/23/17 06:52 White Blood Count 8.84 K/uL Red Blood Count 4.24 M/uL Hemoglobin 12.9 g/dL Hematocrit 38.3 % Mean Corpuscular Volume 90.3 fL Mean Corpuscular Hemoglobin 30.4 pg Mean Corpuscular Hemoglobin Concent 33.7 g/dl RDW Standard Deviation 49.2 fL RDW Coefficient of Variation 15.0 % Platelet Count 147 K/uL Mean Platelet Volume 11.7 fL Prothrombin Time 22.9 SECONDS Prothromb Time International Ratio 2.2 Activated Partial Thromboplast Time 42.5 SECONDS Partial Thromboplastin Ratio 1.6 Sodium Level 139 mmol/L Potassium Level 3.8 mmol/L Chloride Level 108 mmol/L Carbon Dioxide Level 27 mmol/L Anion Gap 5.0 mmol/L Blood Urea Nitrogen 19 mg/dl Creatinine 1.10 mg/dl Est Creatinine Clear Calc Drug Dose 64.7 ml/min Estimated GFR () 76.2 Estimated GFR (Non- 65.8 BUN/Creatinine Ratio 16.8 Random Glucose 85 mg/dl Calcium Level 8.2 mg/dl Assessment & Plan RECTAL BLEEDING LIKELY FROM HEMORRHOID IN THE SETTING OF COUMADIN USE Presented with bright red bleeding per rectum As per H and P:patient had colonoscopy on 09/16/17 and had 7 polyps removed, internal hemorrhoids were also noted hb stable 10/20/17: s/p Hemorrhoidectomy by Dr. Somers 10/21/17: patient has been having BMs- semiformed- covered with blood- bright red will d/c Heparin repeat Hg tonight monitor 10/22/2017 Rectal bleeding resolving Discontinue laxatives for today No heparin today INR 2.4, has received warfarin 7.5 mg p.o. 2 days, anticipate INR will continue to go higher, hold Coumadin INR check daily 10/23/2017 Rectal bleeding continues to improve, no BMs again Resume laxatives today INR 2.2, start Coumadin 3 mg p.o. daily INR check daily Discussed with Dr. Somers History atrial fibrillation, bioprosthetic aortic and mitral valve replacement Rhythm controlled on amiodarone and rate controlled on metoprolol Management of Coumadin as noted above HR regular no cardiac symptoms Hypertension On metoprolol and lisinopril hydralazine and clonidine prn -- monitor Hypothyroidism on levothyroxine DVT prophylaxis INR 2.2 on Coumadin Disposition usually lives at home with PT OT ordered Anticipate discharge to home when cleared by surgery and medically stable Current Inpatient Medications: Current Inpatient Medications Medications (Trade) Dose Ordered Sig/Neymar Route Start Time Stop Time Status Last Admin Dose Admin Acetaminophen (Tylenol Tab) 650 mg Q4H PRN PO 10/17/17 12:00 11/16/17 11:59 Ondansetron HCl (Zofran Inj) 4 mg Q6H PRN IV 10/17/17 12:00 11/16/17 11:59 Amiodarone HCl (Cordarone Tab) 200 mg DAILY PO 10/18/17 09:00 11/17/17 08:59 10/23/17 08:30 200 MG Atorvastatin Calcium (Lipitor Tab) 20 mg DAILY PO 10/18/17 09:00 11/17/17 08:59 10/23/17 08:30 20 MG Levothyroxine Sodium (Synthroid Tab) 25 mcg DAILYBB PO 10/18/17 06:30 11/17/17 06:29 10/23/17 05:48 25 MCG Lisinopril (Zestril Tab) 5 mg DAILY PO 10/18/17 09:00 11/17/17 08:59 10/23/17 08:30 5 MG Metoprolol Tartrate (Lopressor Tab) 50 mg BID PO 10/17/17 21:00 11/16/17 20:59 4/5/18 08:30 50 MG Multivitamins (Multivitamin Tab) 1 tab DAILY PO 10/18/17 09:00 11/17/17 08:59 10/23/17 08:30 1 TAB Quetiapine Fumarate (seroQUEL TAB) 50 mg HS PO 10/17/17 21:00 11/16/17 20:59 10/22/17 20:38 50 MG Miscellaneous (Iv Fluids Completed) 1 ea PRN PRN N/A 10/17/17 13:30 10/17/18 13:29 Hydralazine HCl (HydrALAZINE INJ) 10 mg Q6H PRN IV. 10/17/17 14:30 11/16/17 14:29 10/21/17 03:10 10 MG Clonidine HCl (Catapres Tab) 0.1 mg Q4 PRN PO 10/17/17 16:00 11/16/17 15:59 10/18/17 20:27 0.1 MG Hydromorphone HCl (Dilaudid Inj) 0.5 mg Q3H PRN IM 10/20/17 10:30 11/03/17 10:29 Hydromorphone HCl (Dilaudid Inj) 1 mg Q3H PRN IM 10/20/17 10:30 11/03/17 10:29 Acetaminophen/ Hydrocodone Bitart ([place] 5/325 Tab) 1 tab Q4 PRN PO 10/20/17 10:30 11/03/17 10:29 10/22/17 06:04 1 TAB Acetaminophen/ Hydrocodone Bitart ([place] 5/325 Tab) 2 tab Q4 PRN PO 10/20/17 10:30 11/03/17 10:29 Promethazine HCl 25 mg/Sodium Chloride 51 ml @ 204 mls/hr Q6H PRN IV 10/20/17 10:30 11/19/17 10:29 Promethazine HCl 12.5 mg/Sodium Chloride 50.5 ml @ 204 mls/hr Q6H PRN IV 10/20/17 11:30 11/19/17 11:29 Psyllium Hydrophilic Mucilloid (Metamucil Powder) 1 pkt QAM PO 10/21/17 09:00 11/20/17 08:59 4/5/18 08:29 1 PKT Polyethylene (Miralax Powder Packet) 34 gm DAILY PO 10/23/17 09:00 11/22/17 08:59 10/23/17 08:29 34 GM Senna/Docusate Sodium (Senokot S Tab) 1 tab BID PO 10/23/17 09:00 11/22/17 08:59 10/23/17 08:29 1 TAB Lactulose (Chronulac Syrup) 15 gm TID PRN PO 10/23/17 08:15 11/20/17 12:14 Warfarin Sodium (Coumadin Tab) 3 mg DAILY@16 PO 10/23/17 16:00 11/22/17 15:59 10/23/17 15:32 3 MG
[2017-10-23] MEDS: QUETIAPINE FUMARATE 25 MG TAB PO SCH (21:00)
[2017-10-23 23:30] VITALS: BP 156/87; PULSE 67; TEMP 37.2; O2SAT 93
[2017-10-24] MEDS: LEVOTHYROXINE 25 MCG TAB PO SCH (06:24)
--- NOTE | 2017-10-24 06:31 | Surgery Progress Note ---
Surgery Progress Note Date of Service Oct 24, 2017. Subjective no acute changes, no acute bleeding had several bms yesterday- not recorded doing well Objective Vital Signs: Date Time Temp Pulse Resp B/P (MAP) Pulse Ox O2 Delivery O2 Flow Rate FiO2 10/24/17 00:00 Room Air 10/23/17 23:30 37.2 67 16 156/87 (110) 93 Room Air 10/23/17 15:15 37.2 74 18 155/90 (111) 93 Room Air 10/23/17 15:10 Room Air 10/23/17 07:45 Room Air 10/23/17 07:41 37.0 66 16 135/83 (100) 93 Room Air General Appearance: no apparent distress Respiratory/Chest: no respiratory distress Abdomen: soft Incision(s): drainage (expected mild anorectal drainage) Laboratory Results: Results Past 24 Hours Test 10/23/17 06:52 10/24/17 04:44 Range/Units White Blood Count 8.84 4.8-10.8 K/uL Red Blood Count 4.24 4.7-6.1 M/uL Hemoglobin 12.9 14.0-18.0 g/dL Hematocrit 38.3 42-52 % Mean Corpuscular Volume 90.3 80-100 fL Mean Corpuscular Hemoglobin 30.4 25-34 pg Mean Corpuscular Hemoglobin Concent 33.7 32-36 g/dl RDW Standard Deviation 49.2 36.4-46.3 fL RDW Coefficient of Variation 15.0 11.5-14.5 % Platelet Count 147 130-400 K/uL Mean Platelet Volume 11.7 7.4-10.4 fL Prothrombin Time 22.9 9.0-12.0 SECONDS Prothromb Time International Ratio 2.2 0.9-1.1 Activated Partial Thromboplast Time 42.5 21.0-31.0 SECONDS Partial Thromboplastin Ratio 1.6 Sodium Level 139 136-145 mmol/L Potassium Level 3.8 3.5-5.1 mmol/L Chloride Level 108 98-107 mmol/L Carbon Dioxide Level 27 21-32 mmol/L Anion Gap 5.0 3-11 mmol/L Blood Urea Nitrogen 19 7-18 mg/dl Creatinine 1.10 0.60-1.40 mg/dl Est Creatinine Clear Calc Drug Dose 64.7 ml/min Estimated GFR () 76.2 Estimated GFR (Non- 65.8 BUN/Creatinine Ratio 16.8 10-20 Random Glucose 85 70-99 mg/dl Calcium Level 8.2 8.5-10.1 mg/dl Assessment & Plan 10/24/17 d/c home today if ok with medical team- f/u in office 2 weeks script for pain meds in chart. Should use metamucil daily. should f/u with pcp also, instructions in EMR 10/23/17- will try to encourage bowel movement with lactulose and miralax, SEn S ( at home also ). Check labs , adjust coumadin. monitor for bleeding 10/22/17- will need to be careful with warfarin- I expect some bleeding from surgical area which could become serious if INR too high- need to monitor carefully- probable safe to d/c tomorrow if ok today 10/21/17- s/p hemorrhoidectomy, ligation of Ext hemorrhoids low dose IV Hep and warfarin- 7.5 mg/day monitor progress 2-3 days- ambulate 10/20/17- for OR this am- hemorrhoidectomy, stop IV Heparin- begin 12 hrs postop at low dose - no boluses and coumadin- will need 2-3 days to monitor for bleeding/ coag levels 10/19/17- for hemorrhoidectomy tomorrow- on heparin- will stop at 3 am 09/1910/18/17- cont to hold coumadin, add IV/SC heparin plan for hemorrhoidectomy Mon. cont diet and miralax 10/23/17- will try to encourage bowel movement with lactulose and miralax, SEn S ( at home also ). Check labs , adjust coumadin. monitor for bleeding 10/22/17- will need to be careful with warfarin- I expect some bleeding from surgical area which could become serious if INR too high- need to monitor carefully- probable safe to d/c tomorrow if ok today 10/21/17- s/p hemorrhoidectomy, ligation of Ext hemorrhoids low dose IV Hep and warfarin- 7.5 mg/day monitor progress 2-3 days- ambulate 10/20/17- for OR this am- hemorrhoidectomy, stop IV Heparin- begin 12 hrs postop at low dose - no boluses and coumadin- will need 2-3 days to monitor for bleeding/ coag levels 10/19/17- for hemorrhoidectomy tomorrow- on heparin- will stop at 3 am /10/18/17- cont to hold coumadin, add IV/SC heparin plan for hemorrhoidectomy Mon. cont diet and miralax
[2017-10-24 07:30] VITALS: BP 170/99; PULSE 68; TEMP 36.7; O2SAT 92
[2017-10-24] MEDS ORDERED: LACTULOSE SYRUP 30 GM/45 ML UDP PO PRN (07:45)
[2017-10-24] MEDS ORDERED: HYDR-5688 PO (08:13)
--- NOTE | 2017-10-24 08:15 | Discharge Instructions ---
Discharge Instructions Date of Service Oct 24, 2017. Admission Reason for Admission: Gi Bleed Discharge Discharge Diagnosis / Problem: bleeding hemorrhoids Discharge Goals Goal(s): Decrease discomfort, Improve function, Improve disease control Activity Recommendations Activity Limitations: as noted below Lifting Limitations: gradually increase as tolerated Exercise/Sports Limitations: as tolerated May Resume Sexual Activity: when tolerated Shower/Bathe: no limitations Driving or Machine Use: resume 1 day after discharge . Instructions / Follow-Up Instructions / Follow-Up SPECIAL CARE INSTRUCTIONS: * Cover incisions and change daily for comfort/drainage. will need a pad for 1- 2 weeks Use Metamucil powder daily for 1-2 weeks- or similar to AVOID constipation * May use ibuprofen for pain as tolerated. * Expect some swelling and bruising. Call your doctor if: * Temperature above 101 degrees * Pain not relieved by pain medicine ordered * There is increased drainage or redness from any incision * You have any unanswered questions or concerns [phone]. FOLLOW UP VISIT: If not already scheduled, please call the office for a follow-up visit. for 2 weeks- check up- no sutures to remove OFFICE PHONE NUMBER: Dr. Somers Office Current Hospital Diet Patient's current hospital diet: AHA Diet (Heart Healthy) Discharge Diet Recommended Diet: Regular Diet Procedures Procedures Performed: Hemorrhoidectomy Pending Studies Studies pending at discharge: no Medical Emergencies . Who to Call and When: Medical Emergencies: If at any time you feel your situation is an emergency, please call 911 immediately. . Non-Emergent Contact Non-Emergency issues call your: Primary Care Provider, Surgeon . "Provider Documentation" section prepared by Shiva Somers. .
[2017-10-24 08:18] LABS: INR 1.9 (0.9-1.1); PTT PATIENT 39.6 SECONDS (21.0-31.0)
[2017-10-24 08:35] LABS: CALCIUM 8.9 mg/dl (8.5-10.1); CREATININE 1.09 mg/dl (0.60-1.40)
[2017-10-24 08:52] VITALS: BP 150/92; PULSE 68
[2017-10-24] MEDS: ATORVASTATIN 20 MG TAB PO SCH (08:53)
[2017-10-24] MEDS: AMIODARONE 200 MG TAB PO SCH (08:53)
[2017-10-24] MEDS: MULTIVITAMIN TAB PO SCH (08:53)
[2017-10-24] MEDS: METOPROLOL TARTRATE 50 MG TAB PO SCH (08:54)
[2017-10-24] MEDS: LISINOPRIL 5 MG TAB PO SCH (08:54)
[2017-10-24] MEDS: DOCUSATE SODIUM/SENNA 50/8.6MG TAB PO SCH (08:55)
[2017-10-24] MEDS: PSYLLIUM 58.6% PWD PACK S\\F PO SCH (08:55)
[2017-10-24] MEDS: POLYETHYLENE (MIRALAX) 17 GM PACK PO SCH (08:55)
[2017-10-24] MEDS ORDERED: LACTULOSE SYRUP 10 GM/15 ML BTL 473 ML PO ONE (13:45)
[2017-10-24] MEDS ORDERED: WARFARIN SOD 5 MG TAB PO SCH (16:00)
--- NOTE | 2017-10-24 16:19 | Progress Note ---
Medicine Progress Note Date & Time of Visit: Oct 24, 2017 at 16:15. Subjective Seen resting in bed comfortable in good spirits Having small BMs, very minimal rectal bleeding noted Some rectal pain but also improving Denies chest pain shortness of breath palpitations nausea abdominal pain Denies any symptoms States he is agreeable for discharge today Objective Last 8 Hrs Date Time Temp Pulse Resp B/P (MAP) Pulse Ox O2 Delivery O2 Flow Rate FiO2 10/24/17 08:52 68 150/92 (111) Physical Exam: General- oriented x 3, not in distress, speaks in sentences with no effort Eyes- anicteric Neck- no JVD Lungs- clear BS bilaterally Heart- regular rhythm; no murmur, normal rate Abdomen- normal bowel sounds, soft, nontender Extremities- no pretibial edema, no calf tenderness Neuro- alert, oriented x 3; no gross focal deficits Skin- warm & dry Laboratory Results: Last 24 Hours Test 10/24/17 07:41 Prothrombin Time 20.0 SECONDS Prothromb Time International Ratio 1.9 Activated Partial Thromboplast Time 39.6 SECONDS Partial Thromboplastin Ratio 1.5 Sodium Level 139 mmol/L Potassium Level 4.0 mmol/L Chloride Level 106 mmol/L Carbon Dioxide Level 27 mmol/L Anion Gap 6.0 mmol/L Blood Urea Nitrogen 14 mg/dl Creatinine 1.09 mg/dl Est Creatinine Clear Calc Drug Dose 65.3 ml/min Estimated GFR () 77.1 Estimated GFR (Non- 66.5 BUN/Creatinine Ratio 13.1 Random Glucose 89 mg/dl Calcium Level 8.9 mg/dl Assessment & Plan RECTAL BLEEDING LIKELY FROM HEMORRHOID IN THE SETTING OF COUMADIN USE Presented with bright red bleeding per rectum As per H and P:patient had colonoscopy on 09/16/17 and had 7 polyps removed, internal hemorrhoids were also noted hb stable 10/20/17: s/p Hemorrhoidectomy by Dr. Somers 10/21/17: patient has been having BMs- semiformed- covered with blood- bright red will d/c Heparin repeat Hg tonight monitor 10/22/2017 Rectal bleeding resolving Discontinue laxatives for today No heparin today INR 2.4, has received warfarin 7.5 mg p.o. 2 days, anticipate INR will continue to go higher, hold Coumadin INR check daily 10/23/2017 Rectal bleeding continues to improve, no BMs again Resume laxatives today INR 2.2, start Coumadin 3 mg p.o. daily INR check daily Discussed with Dr. Somers 10/24/2017 Rectal bleeding very minimal positive BMs INR 1.9, Coumadin 5 mg p.o. today, then resume usual dosing Follow-up with Dr. Somers in 1-2 weeks Continue daily laxatives History atrial fibrillation, bioprosthetic aortic and mitral valve replacement Rhythm controlled on amiodarone and rate controlled on metoprolol Management of Coumadin as noted above HR regular no cardiac symptoms Hypertension On metoprolol and lisinopril hydralazine and clonidine prn Stable Hypothyroidism on levothyroxine DVT prophylaxis INR 1.9 on Coumadin Disposition Discharge to home Follow up with PCP in 3-5 days Follow-up with Coumadin clinic early next week Follow-up with general surgery Dr. Somers in 1-2 weeks Current Inpatient Medications: Current Inpatient Medications Medications (Trade) Dose Ordered Sig/Neymar Route Start Time Stop Time Status Last Admin Dose Admin Acetaminophen (Tylenol Tab) 650 mg Q4H PRN PO 10/17/17 12:00 11/16/17 11:59 Ondansetron HCl (Zofran Inj) 4 mg Q6H PRN IV 10/17/17 12:00 11/16/17 11:59 Amiodarone HCl (Cordarone Tab) 200 mg DAILY PO 10/18/17 09:00 11/17/17 08:59 10/24/17 08:53 200 MG Atorvastatin Calcium (Lipitor Tab) 20 mg DAILY PO 10/18/17 09:00 11/17/17 08:59 10/24/17 08:53 20 MG Levothyroxine Sodium (Synthroid Tab) 25 mcg DAILYBB PO 10/18/17 06:30 11/17/17 06:29 10/24/17 06:24 25 MCG Lisinopril (Zestril Tab) 5 mg DAILY PO 10/18/17 09:00 11/17/17 08:59 10/24/17 08:54 5 MG Metoprolol Tartrate (Lopressor Tab) 50 mg BID PO 10/17/17 21:00 11/16/17 20:59 10/24/17 08:54 50 MG Multivitamins (Multivitamin Tab) 1 tab DAILY PO 10/18/17 09:00 11/17/17 08:59 10/24/17 08:53 1 TAB Quetiapine Fumarate (seroQUEL TAB) 50 mg HS PO 10/17/17 21:00 11/16/17 20:59 10/23/17 21:00 50 MG Miscellaneous (Iv Fluids Completed) 1 ea PRN PRN N/A 10/17/17 13:30 10/17/18 13:29 Hydralazine HCl (HydrALAZINE INJ) 10 mg Q6H PRN IV. 10/17/17 14:30 11/16/17 14:29 10/21/17 03:10 10 MG Clonidine HCl (Catapres Tab) 0.1 mg Q4 PRN PO 10/17/17 16:00 11/16/17 15:59 10/18/17 20:27 0.1 MG Hydromorphone HCl (Dilaudid Inj) 0.5 mg Q3H PRN IM 10/20/17 10:30 11/03/17 10:29 Hydromorphone HCl (Dilaudid Inj) 1 mg Q3H PRN IM 10/20/17 10:30 11/03/17 10:29 Acetaminophen/ Hydrocodone Bitart ([place] 5/325 Tab) 1 tab Q4 PRN PO 10/20/17 10:30 11/03/17 10:29 10/22/17 06:04 1 TAB Acetaminophen/ Hydrocodone Bitart ([place] 5/325 Tab) 2 tab Q4 PRN PO 10/20/17 10:30 11/03/17 10:29 Promethazine HCl 25 mg/Sodium Chloride 51 ml @ 204 mls/hr Q6H PRN IV 10/20/17 10:30 11/19/17 10:29 Promethazine HCl 12.5 mg/Sodium Chloride 50.5 ml @ 204 mls/hr Q6H PRN IV 10/20/17 11:30 11/19/17 11:29 Psyllium Hydrophilic Mucilloid (Metamucil Powder) 1 pkt QAM PO 10/21/17 09:00 11/20/17 08:59 10/24/17 08:55 1 PKT Polyethylene (Miralax Powder Packet) 34 gm DAILY PO 10/23/17 09:00 11/22/17 08:59 10/24/17 08:55 34 GM Senna/Docusate Sodium (Senokot S Tab) 1 tab BID PO 10/23/17 09:00 11/22/17 08:59 10/24/17 08:55 1 TAB Lactulose (Chronulac Syrup) 30 gm TID PRN PO 10/24/17 07:45 11/20/17 12:14 Warfarin Sodium (Coumadin Tab) 5 mg DAILY@16 PO 10/24/17 16:00 11/22/17 15:59 10/24/17 15:30 5 MG
[2017-10-24] MEDS ORDERED: SENN8.6T7 PO (16:24)
--- NOTE | 2017-10-24 16:31 | Discharge Instructions ---
Discharge Instructions Date of Service Oct 24, 2017. Admission Reason for Admission: Gi Bleed Discharge Discharge Diagnosis / Problem: RECTAL BLEEDING LIKELY FROM HEMORRHOIDS Discharge Goals Goal(s): Diagnostic testing, Therapeutic intervention Activity Recommendations Activity Limitations: as noted below (NO HEAVY EXERTION UNTIL RE-EVALUATED BY PRIMARY CARE PHYSICIAN.) Lifting Limitations: until after follow-up appointment Exercise/Sports Limitations: until after follow-up appointment Driving or Machine Use: NO DRIVING UNTIL RE-EVALUATED BY PRIMARY CARE PHYSICIAN. . Instructions / Follow-Up Instructions / Follow-Up PLEASE REFER TO YOUR NEW MEDICATION LIST AND FOLLOW INSTRUCTIONS CAREFULLY PLEASE CALL YOUR PRIMARY CARE PHYSICIAN OR RETURN TO ER IMMEDIATELY IF WITH RECURRENCE OF SYMPTOMS, Increasing rectal bleed, rectal pain, constipation, chest pain, shortness of breath, dizziness, weakness. PLEASE FOLLOW-UP WITH DR. ORTEGA ON SUNDAY, OCTOBER 29, 2017 AT 12:45 PM. PLEASE FOLLOW-UP WITH DR. AVENDAÑO IN 1-2 WEEKS. Current Hospital Diet Patient's current hospital diet: AHA Diet (Heart Healthy) Discharge Diet Recommended Diet: AHA Diet (Heart Healthy) Procedures Procedures Performed: Hemorrhoidectomy Pending Studies Studies pending at discharge: no Medical Emergencies . Who to Call and When: Medical Emergencies: If at any time you feel your situation is an emergency, please call 911 immediately. . Non-Emergent Contact Non-Emergency issues call your: Primary Care Provider, Surgeon (DR. AVENDAÑO) Call Non-Emergent contact if: you have a fever, your pain is not controlled, your pain is worsening, wound has increased drainage, wound has increased pain, you have any medication questions . . "Provider Documentation" section prepared by Reid Pierre. .
[2017-10-24 16:34] VITALS: BP 150/92; PULSE 68; TEMP 36.7; O2SAT 92
--- NOTE | 2017-10-24 18:48 | Discharge Summary ---
Discharge Summary Date of Service Oct 24, 2017. Discharge Summary Admission Date: September Discharge Date: Oct 24, 2017 Discharge Disposition: Home Principal Diagnosis: RECTAL BLEEDING IN THE SETTING OF COUMADIN USE ; LIKELY FROM HEMORRHOIDs Secondary Diagnoses/Problems: Please refer to hospital course below. Procedures: DATE OF OPERATION: 10/20/2017 NAME OF OPERATION: Excision of right posterolateral internal hemorrhoid and ligation of external hemorrhoids. STAFF SURGEON: Shiva Somers MD. Consultations: General Surgery Dr. Somers Pending Studies/Follow-Up: Please refer to hospital course below. Medication Reconciliation New Medications: Hydrocodone/Acetaminophen 5MG/325MG (Celina 5MG/325MG) Tab 1-2 TABLET PO Q6H PRN for Pain, #30 TAB PRN PAIN Sennosides-Docusate Sodium (Senokot S) 1 Tab Tab 1 TAB PO DAILY for 10 Days, #10 TAB 1 Refill Continued Medications: Albuterol (Ventolin Hfa) 60 Puffs/5400 Mcg Aers 2 PUFF INH Q6H PRN for Wheezing, #1 Amiodarone HCl (Amiodarone HCl) 200 Mg Tab 200 MG PO DAILY Amoxicillin (Amoxil) 500 Mg Cap 2000 MG PO UD PRN for Dental Appointment TAKE 4 CAPSULES BY MOUTH ONE HOUR PRIOR TO DENTAL APPOINTMENT Aspirin (Aspirin Low Dose) 81 Mg Chw 162 MG PO DAILY Atorvastatin (Lipitor) 20 Mg Tab 20 MG PO DAILY Furosemide (Furosemide) 40 Mg Tab 40 MG PO DAILY Levothyroxine Sodium (Levothyroxine Sodium) 25 Mcg Tab 25 MCG PO DAILY TAKE THIS MEDICATION ON AN EMPTY STOMACH Lisinopril (Lisinopril) 5 Mg Tab 5 MG PO DAILY Metoprolol Tartrate (Lopressor) (Lopressor) 100 Mg Tab 50 MG PO BID Multiple Vitamin (Multivitamin) 1 Tab Tab 1 TABLET PO DAILY, TAB [place]-3 Fatty Acids (Fish Oil) 1 Cap Cap 1 CAP PO DAILY Polyethylene (Polyethylene Glycol 3350) 527 Gm Soln 17 GM PO DAILY PRN for Constipation MIX 17 GRAMS (ONE HEAPING TABLESPOON) IN 8 OUNCES OF WATER OR JUICE Potassium Chloride (Potassium Chloride ER) 20 Meq Tab 10 MEQ PO BID Quetiapine Fumarate (Seroquel) 50 Mg Tab 50 MG PO HS Warfarin Sodium (Warfarin Sodium) 3 Mg Tab 3 MG PO 2XWK, TAB Mon, Fri Warfarin Sodium (Warfarin Sodium) 3 Mg Tab 1.5 MG PO 5XWK , Fri, Th, Sat, Sun Admission Information HPI (per Admitting provider): 72-year-old male who presents to the ER with a chief complaint of rectal bleeding. Patient underwent colonoscopy on 09/16/17 where he had 7 polyps removed and internal hemorrhoids were noted. Patient reports a scant amount of bleeding post procedure however had since resolved. Patient reports that this morning he had a normal bowel movement which is followed by a large amount of bright red bleeding per rectum. He reports that blood continued to ooze from his rectum. He applied pressure with washcloth and gauze however blood soaked through these. He had some minor lower cramping abdominal pain. No nausea or vomiting. He denies chest pain shortness of breath. No lightheadedness, dizziness, diaphoresis, or syncopal events. He denies recent fever and chills. No urinary symptoms. In the ER, patient's INR is 1.9. He is noted to be anticoagulated on Coumadin for history of atrial fibrillation and bioprosthetic mitral valve replacement. Hemoglobin is stable at 14.4. Vital signs are stable. Patient was treated with IVF. Physical Exam (per Admitting): General Appearance: WD/WN, no apparent distress Head: normocephalic, atraumatic Eyes: normal inspection, EOMI, sclerae normal ENT: hearing grossly normal, + pertinent finding (Mucous membranes moist) Neck: supple, no JVD, trachea midline Respiratory/Chest: lungs clear, normal breath sounds, no respiratory distress Cardiovascular: regular rate, rhythm, no edema, normal peripheral pulses Abdomen/GI: normal bowel sounds, non tender, soft, no organomegaly Extremities/Musculoskelatal: normal inspection, no calf tenderness, normal capillary refill Neurologic/Psych: no motor/sensory deficits, alert, normal mood/affect, oriented x 3 Skin: normal color, warm/dry Hospital Course RECTAL BLEEDING IN THE SETTING OF COUMADIN USE LIKELY FROM HEMORRHOIDs Presented with bright red bleeding per rectum As per H and P:patient had colonoscopy on 09/16/17 and had 7 polyps removed, internal hemorrhoids were also noted 10/20/17: s/p Hemorrhoidectomy by Dr. Somers After surgery, heparin and Coumadin resumed INR gradually increased Patient had an episode of rectal bleeding with BMs at one-point Heparin was discontinued and Coumadin held Since then patient had no recurrence of significant rectal bleed Coumadin resumed, INR on discharge 1.9 Given Coumadin 5 mg on discharge day October 24, 2017 advised to continue usual Coumadin regimen Spoke with Coumadin clinic, they will closely monitor the patient Follow-up with Dr. Somers in 1-2 weeks Continue daily laxatives History atrial fibrillation, bioprosthetic aortic and mitral valve replacement Rhythm controlled on amiodarone and metoprolol Management of Coumadin as noted above No cardiac symptoms noted Hypertension On metoprolol and lisinopril hydralazine and clonidine prn Stable Hypothyroidism on levothyroxine Disposition Discharge to home Follow up with PCP in 3-5 days Follow-up with Coumadin clinic early next week Follow-up with general surgery Dr. Somers in 1-2 weeks Total time spent on discharge = This includes examination of the patient, discharge planning, medication reconciliation, and communication with other providers. Discharge Instructions Discharge Instructions Date of Service Oct 24, 2017. Admission Reason for Admission: Gi Bleed Discharge Discharge Diagnosis / Problem: RECTAL BLEEDING LIKELY FROM HEMORRHOIDS Discharge Goals Goal(s): Diagnostic testing, Therapeutic intervention Activity Recommendations Activity Limitations: as noted below (NO HEAVY EXERTION UNTIL RE-EVALUATED BY PRIMARY CARE PHYSICIAN.) Lifting Limitations: until after follow-up appointment Exercise/Sports Limitations: until after follow-up appointment Driving or Machine Use: NO DRIVING UNTIL RE-EVALUATED BY PRIMARY CARE PHYSICIAN. . Instructions / Follow-Up Instructions / Follow-Up PLEASE REFER TO YOUR NEW MEDICATION LIST AND FOLLOW INSTRUCTIONS CAREFULLY PLEASE CALL YOUR PRIMARY CARE PHYSICIAN OR RETURN TO ER IMMEDIATELY IF WITH RECURRENCE OF SYMPTOMS, Increasing rectal bleed, rectal pain, constipation, chest pain, shortness of breath, dizziness, weakness. PLEASE FOLLOW-UP WITH DR. ORTEGA ON SUNDAY, OCTOBER 29, 2017 AT 12:45 PM. PLEASE FOLLOW-UP WITH DR. SOMERS IN 1-2 WEEKS. Current Hospital Diet Patient's current hospital diet: AHA Diet (Heart Healthy) Discharge Diet Recommended Diet: AHA Diet (Heart Healthy) Procedures Procedures Performed: Hemorrhoidectomy Pending Studies Studies pending at discharge: no Medical Emergencies . Who to Call and When: Medical Emergencies: If at any time you feel your situation is an emergency, please call 911 immediately. . Non-Emergent Contact Non-Emergency issues call your: Primary Care Provider, Surgeon (DR. SOMERS) Call Non-Emergent contact if: you have a fever, your pain is not controlled, your pain is worsening, wound has increased drainage, wound has increased pain, you have any medication questions . . "Provider Documentation" section prepared by Reid Pierre. .
== END 2017-10-24 17:13 | disposition home or self-care (01) | DRG 349 ==
LOC: C.EDB 09:05 → C.MED 11:54 → ENRESERV 12:09 → C.MSW 10-20 11:35 → OBSVTOIN 10-21 13:14
PROVIDERS: ADMIT Internal Medicine; ATTEND Internal Medicine
PROC: 06LY3CC Occlusion of Hemorrhoidal Plexus with Extraluminal Device, Percutaneous Approach (ICD-10-PCS; principal; 2017-10-20 09:00)
PROC: 06BY3ZC Excision of Hemorrhoidal Plexus, Percutaneous Approach (ICD-10-PCS; principal; 2017-10-20 09:00)
DX: K64.5 Perianal venous thrombosis (principal); I48.91 Unspecified atrial fibrillation; I25.10 Atherosclerotic heart disease of native coronary artery without angina pectoris; K21.9 Gastro-esophageal reflux disease without esophagitis; E78.5 Hyperlipidemia, unspecified; I10 Essential (primary) hypertension; Z95.2 Presence of prosthetic heart valve; Z87.891 Personal history of nicotine dependence; Z79.01 Long term (current) use of anticoagulants; Z79.82 Long term (current) use of aspirin; Z82.49 Family history of ischemic heart disease and other diseases of the circulatory system; Z83.3 Family history of diabetes mellitus

== ENCOUNTER 2018-07-23 09:35 | Inpatient (IN) ==
[2018-07-23] MEDS ORDERED: NITROGLYCERIN 2% OINTMENT 30GM TUBE EXT STA (10:06)
[2018-07-23 10:14] LABS: Basophils # (auto) 0.05 K/uL (0-0.2); Basophils % (auto) 0.7 %; Eosinophils # (auto) 0.14 K/uL (0-0.5); Eosinophils % (auto) 1.9 %; Hemoglobin 13.2 g/dL (14.0-18.0); Immature Granulocytes # (auto) 0.04 K/uL (0.00-0.02); Immature Granulocytes % (auto) 0.6 %; Lymphocytes # (auto) 1.07 K/uL (1.2-3.4); Lymphocytes % (auto) 14.7 %; Mean Corpuscular Hgb Conc 31.4 g/dL (32-36); Mean Corpuscular Volume 81.6 fL (80-100); Mean Platelet Volume 11.9 fL (7.4-10.4); Monocytes % (auto) 6.9 %; Neutrophils # (auto) 5.47 K/uL (1.4-6.5); Neutrophils % (auto) 75.2 %; Platelet Count 203 K/uL (130-400); RDW Coefficient of Variation 17.4 % (11.5-14.5); RDW Standard Deviation 51.7 fL (36.4-46.3); Red Blood Count 5.15 M/uL (4.7-6.1); White Blood Count 7.27 K/uL (4.8-10.8)
[2018-07-23 10:21] LABS: Alanine Aminotransferase 22 U/L (12-78); Aspartate Aminotransferase 21 U/L (15-37); Blood Urea Nitrogen 18 mg/dl (7-18); Calcium 8.9 mg/dl (8.5-10.1); Carbon Dioxide 27 mmol/L (21-32); Chloride 103 mmol/L (98-107); Creatinine Clr Calc Pharmacy 66.4 ml/min; Est GFR (African American) 64.2; Est GFR (Non-African American) 55.4; Glucose 79 mg/dl (70-99); Potassium 3.7 mmol/L (3.5-5.1); Sodium 139 mmol/L (136-145)
[2018-07-23 10:26] LABS: Alkaline Phosphatase 128 U/L (45-117); Bilirubin,Total 0.6 mg/dl (0.2-1); Globulin 3.9 gm/dl (2.5-4.0); Total Protein 7.9 gm/dl (6.4-8.2); Troponin I < 0.015 ng/ml (0-0.045)
--- NOTE | 2018-07-23 10:38 | XRay Report ---
XR chest 1V portable CLINICAL HISTORY: 73 years-old Male presenting with Chest Pain. TECHNIQUE: Portable upright AP view of the chest was obtained. COMPARISON: CTA from 07/09/2018 and chest x-ray from 07/09/2018. FINDINGS: The patient is slightly TURKISH rotated. Median sternotomy wires and left atrial appendage occlusion sarita ce noted. Atherosclerosis of aortic arch. Cardiac silhouette moderately enlarged. Pulmonary vascular prominence. Prominent lung markings likely vascular. No focal opacity. No large effusion or pneumotho rax. IMPRESSION: 1. Cardiomegaly with volume overload. No xuan pulmonary edema. Findings are similar to prior exam. Electronically signed by: Gary Dodge M.D. 07/23/2018 10:37 AM
[2018-07-23] MEDS ORDERED: ACETAMINOPHEN 325 MG TAB PO PRN (12:41)
[2018-07-23 13:22] LABS: INR 1.8 (0.9-1.1); Prothrombin Time 17.3 Seconds (9.0-12.0)
--- NOTE | 2018-07-23 13:29 | History & Physical Report ---
Date of Service July 23, 2018 Assessment & Plan (1) Acute electrocardiogram changes: (2) Chest pain: -Admit to telemetry -Patient sent to the ED by cardiology office for evaluation of chest pain and EKG changes -Patient recently admitted to [facility] 07/09 through 07/11 for uncontrolled hypertension and chest pain -Patient reports an episode of left-sided chest pain that awoke him from sleep 2 nights ago, since then he describes a persistent, dull ache on the left side of his chest -In the cardiology office today, EKG demonstrated new T wave inversions inferiorly and laterally -Patient received sublingual nitroglycerin with EMS and subsequently had Nitropaste applied in the ED -In the ED, initial troponin is negative and EKG demonstrates improvement in the T wave inversions -Continue cycle cardiac enzymes, check resting echo -History of cardiac cath 2016 that demonstrated mild nonobstructive disease -Continue aspirin, statin, beta-charlie -Cardiology consult, case discussed with Dr. De Oliveira (3) HTN (hypertension): -Recent admission for uncontrolled blood pressure -lisinopril was increased from 5 mg daily to 10 mg daily -Was seen by PCP yesterday and had an additional increase in lisinopril to 20 mg daily -BP in ED somewhat elevated; (noted that patient only took 5 mg of lisinopril today so far) continue lisinopril 20 mg daily and metoprolol 50 mg twice daily -Discussed with cardiology who recommends adding amlodipine 5 mg daily (4) Atrial fibrillation: -Rhythm controlled on amiodarone, rate controlled on metoprolol -Anticoagulated on Coumadin, INR 1.9 (5) HLD (hyperlipidemia): -Continue statin (6) Hyperthyroidism: -Outpatient labs yesterday showed TSH 18.39, free T4 0.847 -Continue methimazole for now and discuss with [facility] endocrinology -Outpatient thyroid uptake scan scheduled for 08/24 (7) DVT prophylaxis: -On Coumadin, INR 1.9 History of Present Illness Chief Complaint: Chest pain Primary Care Provider: Emigdio Lao MD 73-year-old male who was sent to the ED by cardiology office for evaluation of chest pain and EKG changes. Patient was recently admitted to [facility] 07/09 through 07/11 for chest pain and uncontrolled blood pressure. During that admission, patient had an unremarkable workup and symptoms were felt to be due to uncontrolled blood pressure. His lisinopril was increased from 5 mg daily to 10 mg daily during that admission. Patient reports that 2 nights ago he was awoken around 3 AM with severe left-sided chest pain and headache. He has been checking his blood pressure at home and reports it has been elevated. He saw his PCP in follow-up yesterday who noted increased BP and increase his lisinopril to 20 mg daily. He saw cardiology in follow-up today. He reported his symptoms, and an EKG was obtained demonstrating new T wave inversions in the inferior and lateral leads. He was sent to the ER for further evaluation. Patient reports he has had a persistent left-sided chest pain that he describes as a dull ache. It is not with exertion. He denies any associated shortness of breath, diaphoresis, nausea, lightheadedness, dizziness, syncopal events, radiation of the pain into the jaw, neck, shoulder, arm. No fevers chills. He denies urinary symptoms. In the ED, initial troponin is negative and EKG demonstrates improvement in the T wave inversions that were noted earlier. For EMS, patient received aspirin and nitroglycerin. In the ED, nitroglycerin paste was applied. Patient does not note any change in the mild chest discomfort. Allergies Allergy/AdvReac Type Severity Reaction Status Date / Time No Known Allergies Allergy Unverified 07/23/18 11:21 Home Medications Home Medications Medication Instructions Recorded Confirmed Type amiodarone 200 mg PO DAILY@1500 07/09/18 07/23/18 History amoxicillin 4 cap PO UD 07/09/18 07/23/18 History atorvastatin 40 mg PO HS 07/09/18 07/23/18 History fluocinolone 1 applic TOPICAL DAILY PRN 07/09/18 07/23/18 History fluticasone 2 spray INTRANASAL HS 07/09/18 07/23/18 History furosemide 40 mg PO QAM 07/09/18 07/23/18 History methimazole 10 mg PO QAM 07/09/18 07/23/18 History metoprolol tartrate 50 mg PO BID 07/09/18 07/23/18 History polyethylene glycol 3350 1 packet PO QAM 07/09/18 07/23/18 History potassium chloride 10 mg PO BID 07/09/18 07/23/18 History quetiapine 50 mg PO HS 07/09/18 07/23/18 History sennosides-docusate sodium 1 tab PO DAILY@1500 07/09/18 07/23/18 History warfarin 1.5 mg PO SUTUWETHSA@1600 07/09/18 07/23/18 History warfarin 3 mg PO MOFR@1600 07/09/18 07/23/18 History aspirin 81 mg PO BID 07/23/18 07/23/18 History lisinopril [Zestril] 20 mg PO QAM 07/23/18 07/23/18 History Past Med/Surg History Medical History Hyperthyroidism (Chronic) Awaiting thyroid uptake scan scheduled in July 2017. Based on the results of the uptake scan, may need FNA of the thyroid nodule. ICH (intracerebral hemorrhage) (Resolved) 2012 Chronic anticoagulation (Chronic) Atrial fibrillation (Chronic) CAD (coronary artery disease) (Chronic) "cath 2016 - mild, non obstructive" GERD (gastroesophageal reflux disease) (Chronic) HLD (hyperlipidemia) (Chronic) Aortic root aneurysm (Chronic) "s/p repair" HTN (hypertension) (Chronic) Surgical History H/O maze procedure (Chronic) H/O aortic valve replacement (Chronic) H/O mitral valve replacement (Chronic) H/O hemorrhoidectomy (Chronic) H/O arthroscopy of knee (Chronic) S/P TURP (Chronic) Family History Father HTN (hypertension) Mother Heart disease Diabetes Social History Current Living Situation: Significant Other Other Information That Helps Us Care for You: No Feels Safe at Home: Yes Safety Concerns: Feels Safe At This Time Smoking Status: Never smoker Hx Alcohol Use: Yes Alcohol type: beer Alcohol Intake Frequency: a few times a week Hx Substance Use: No Beliefs That Will Affect Care: None Preferred Language: Ukrainian Communication Ability: Effective Review of Systems ROS per HPI, all other systems reviewed and negative Physical Exam 2 Vital Signs (Past 24 Hours): Last Vital Signs Temp 37.2 C 07/23/18 09:46 Pulse 55 L 07/23/18 12:50 Resp 13 07/23/18 12:50 BP 166/93 H 07/23/18 12:31 Pulse Ox 95 07/23/18 12:50 Constitutional: WD/WN, vitals as above Eyes: PERRL, conjunctivae normal, anicteric sclerae ENMT: external ear and nose normal, oropharynx normal Respiratory: normal respiratory effort, lungs clear to auscultation Cardiovascular: Rate/Rhythm: regular rate and regular rhythm Vessels: normal peripheral pulses Extremities: no edema Gastrointestinal (Abdomen): normal bowel sounds, soft, nontender, no hepatosplenomegaly Musculoskeletal: no cyanosis or clubbing, extremities motor strength 5/5 Skin: no rashes, warm and dry Neurologic: PERRL, EOMI, accommodation nl, no face palsy, no dysarthria Psychiatric: A+Ox3, euthymic affect Results & Data Laboratory Results Laboratory Last Values WBC 7.27 K/uL (4.8-10.8) 07/23/18 09:30 RBC 5.15 M/uL (4.7-6.1) 07/23/18 09:30 Hgb 13.2 g/dL (14.0-18.0) L 07/23/18 09:30 Hct 42.0 % (42-52) 07/23/18 09:30 MCV 81.6 fL (80-100) 07/23/18 09:30 MCH 25.6 pg (25-34) 07/23/18 09:30 MCHC 31.4 g/dL (32-36) L 07/23/18 09:30 RDW Std Deviation 51.7 fL (36.4-46.3) H 07/23/18 09:30 RDW Coeff of Kathy 17.4 % (11.5-14.5) H 07/23/18 09:30 Plt Count 203 K/uL (130-400) 07/23/18 09:30 MPV 11.9 fL (7.4-10.4) H 07/23/18 09:30 Immature Gran % (Auto) 0.6 % 07/23/18 09:30 Neut % (Auto) 75.2 % 07/23/18 09:30 Lymph % (Auto) 14.7 % 07/23/18 09:30 [place] % (Auto) 6.9 % 07/23/18 09:30 Eos % (Auto) 1.9 % 07/23/18 09:30 Baso % (Auto) 0.7 % 07/23/18 09:30 Immature Gran # (Auto) 0.04 K/uL (0.00-0.02) H 07/23/18 09:30 Neut # (Auto) 5.47 K/uL (1.4-6.5) 07/23/18 09:30 Lymph # (Auto) 1.07 K/uL (1.2-3.4) L 07/23/18 09:30 [place] # (Auto) 0.50 K/uL (0.11-0.59) 07/23/18 09:30 Eos # (Auto) 0.14 K/uL (0-0.5) 07/23/18 09:30 Baso # (Auto) 0.05 K/uL (0-0.2) 07/23/18 09:30 PT 17.3 Seconds (9.0-12.0) H 07/23/18 12:59 INR 1.8 (0.9-1.1) H 07/23/18 12:59 APTT Cancelled 07/23/18 09:30 PTT Ratio Cancelled 07/23/18 09:30 Sodium 139 mmol/L (136-145) 07/23/18 09:30 Potassium 3.7 mmol/L (3.5-5.1) 07/23/18 09:30 Chloride 103 mmol/L (98-107) 07/23/18 09:30 Carbon Dioxide 27 mmol/L (21-32) 07/23/18 09:30 Anion Gap 9.0 (3-11) 07/23/18 09:30 BUN 18 mg/dl (7-18) 07/23/18 09:30 Creatinine 1.26 mg/dl (0.6-1.4) 07/23/18 09:30 Est Cr Clr Drug Dosing 66.4 ml/min 07/23/18 09:30 Est GFR ( Amer) 64.2 07/23/18 09:30 Est GFR (Non-Af Amer) 55.4 07/23/18 09:30 BUN/Creatinine Ratio 14.0 (10-20) 07/23/18 09:30 Glucose 79 mg/dl (70-99) 07/23/18 09:30 Calcium 8.9 mg/dl (8.5-10.1) 07/23/18 09:30 Total Bilirubin 0.6 mg/dl (0.2-1) 07/23/18 09:30 AST 21 U/L (15-37) 07/23/18 09:30 ALT 22 U/L (12-78) 07/23/18 09:30 Alkaline Phosphatase 128 U/L (45-117) H 07/23/18 09:30 Troponin I < 0.015 ng/ml (0-0.045) 07/23/18 09:30 Total Protein 7.9 gm/dl (6.4-8.2) 07/23/18 09:30 Albumin 4.0 gm/dl (3.4-5.0) 07/23/18 09:30 Globulin 3.9 gm/dl (2.5-4.0) 07/23/18 09:30 Albumin/Globulin Ratio 1.0 (0.9-2) 07/23/18 09:30 Lipase 124 U/L (73-393) 07/23/18 09:30 Diagnostic Findings CXR IMPRESSION: 1. Cardiomegaly with volume overload. No xuan pulmonary edema. Findings are similar to prior exam. Code Status & VTE Plan VTE Prophylaxis Plan VTE Prophylaxis will be ordered: Yes _ (1) Atrial fibrillation Atrial fibrillation type: paroxysmal Qualified Code(s): I48.0 - Paroxysmal atrial fibrillation (2) Chest pain Chest pain type: precordial pain Ischemic chest pain type: Qualified Code(s ): R07.2 - Precordial pain (3) HTN (hypertension) Hypertension type: essential hypertension Qualified Code(s): I10 - Essential (primary) hypertension
[2018-07-23] MEDS ORDERED: AMLODIPINE BESYLATE 5 MG TAB PO ONE (14:30)
[2018-07-23] MEDS ORDERED: LISINOPRIL 10 MG TAB PO ONE (14:36)
[2018-07-23] MEDS ORDERED: NITROGLYCERIN SL 0.4 MG/TAB TAB SL PRN (14:36)
[2018-07-23] MEDS ORDERED: AMIODARONE 200 MG TAB PO SCH (15:00)
[2018-07-23] MEDS: DOCUSATE SODIUM/SENNA 50/8.6MG TAB PO SCH (15:52)
--- NOTE | 2018-07-23 17:33 | Cardiology Consultation ---
Date of Consultation July 23, 2018 Assessment & Plan (1) Chest pain: Patient had experienced 2 episodes of heavy chest pressure discomfort now resolved outpatient EKGs did demonstrate T wave inversion in inferior leads no longer present initial cardiac enzymes are negative. Initial review of echocardiogram at bedside reveals preserved LV systolic function normally functioning aortic and mitral valve prostheses Plan we will observe, serial enzymes possibly consider diagnostic cardiac catheterization to reassess coronary disease given dynamic EKG changes I am suspicious this may be in response to bradycardia and hypertension Will hold amiodarone, reduce metoprolol dosing initially no warfarin this evening (2) Acute electrocardiogram changes: As above may proceed to diagnostic cardiac catheterization in a.m. depending her clinical course progresses (3) H/O aortic valve replacement: (4) H/O mitral valve replacement: (5) Paroxysmal atrial fibrillation: No noted recurrences since March 2016. Patient did have intra- surgical Maze procedure and has remained on amiodarone chronically. Will hold amiodarone at this time as I suspect it is aggravating multiple issues including bradycardia and recent hyperthyroidism History of Present Illness Reason for Consultation: Chest pain, complex cardiac history, hypertension Requesting Physician: Emilee Hernandez/Miladys Rowe DO Attending Physician: Miladys Rowe DO History of Present Illness Patient is a very complex 73-year-old male with past medical history notable for 1. Long-standing hypertension 2. History of paroxysmal atrial fibrillation 3. History of intracranial hemorrhage occipital 2012 while on anticoagulation 4. Cardiac catheterization 2011 and in December 2015 with mild nonobstructive coronary disease most significant 40% mid LAD 5. Complex valvular disease status post aortic valve replacement bioprosthesis 27 mm epic and 32 mm Gelweave aortic root replacement, mitral valve replacement with 33 mm bioprosthesis January 2016 6. Intraoperative maze procedure performed with postoperative atrial fibrillation but last recurrence noted March 2016 patient being maintained on chronic amiodarone therapy 7. Recently observed hyperthyroidism with patient placed on suppressive therapy with methimazole April 2018, question amiodarone-induced Patient presents now noting recent hospitalization with hypertension and chest discomfort. Patient initially responded to medical therapy but since discharge had 2 episodes of chest pressure heaviness to be seen in the outpatient setting where EKG demonstrated low atrial focus/junctional rhythm with transient T wave inversion in inferior leads. He is referred for further evaluation now inpatient initial troponin is negative for infarct he is currently asymptomatic. He has been taking medications as prescribed. Notes no fevers chills or productive cough. Notes no melena hematochezia dysuria hematuria. Appetite and weight have been stable. Notes no overt sleep disturbances. Allergies Allergy/AdvReac Type Severity Reaction Status Date / Time No Known Allergies Allergy Unverified 07/23/18 11:21 Home Medications Home Medications Medication Instructions Recorded Confirmed Type amiodarone 200 mg PO DAILY@1500 07/09/18 07/23/18 History amoxicillin 4 cap PO UD 07/09/18 07/23/18 History atorvastatin 40 mg PO HS 07/09/18 07/23/18 History fluocinolone 1 applic TOPICAL DAILY PRN 07/09/18 07/23/18 History fluticasone 2 spray INTRANASAL HS 07/09/18 07/23/18 History furosemide 40 mg PO QAM 07/09/18 07/23/18 History methimazole 10 mg PO QAM 07/09/18 07/23/18 History metoprolol tartrate 50 mg PO BID 07/09/18 07/23/18 History polyethylene glycol 3350 1 packet PO QAM 07/09/18 07/23/18 History potassium chloride 10 mg PO BID 07/09/18 07/23/18 History quetiapine 50 mg PO HS 07/09/18 07/23/18 History sennosides-docusate sodium 1 tab PO DAILY@1500 07/09/18 07/23/18 History warfarin 1.5 mg PO SUTUWETHSA@1600 07/09/18 07/23/18 History warfarin 3 mg PO MOFR@1600 07/09/18 07/23/18 History aspirin 81 mg PO BID 07/23/18 07/23/18 History lisinopril [Zestril] 20 mg PO QAM 07/23/18 07/23/18 History Patient History Medical History Hyperthyroidism (Chronic) Awaiting thyroid uptake scan scheduled in July 2017. Based on the results of the uptake scan, may need FNA of the thyroid nodule. ICH (intracerebral hemorrhage) (Resolved) 2012 Chronic anticoagulation (Chronic) Atrial fibrillation (Chronic) CAD (coronary artery disease) (Chronic) "cath 2016 - mild, non obstructive" GERD (gastroesophageal reflux disease) (Chronic) HLD (hyperlipidemia) (Chronic) Aortic root aneurysm (Chronic) "s/p repair" HTN (hypertension) (Chronic) Surgical History H/O maze procedure (Chronic) H/O aortic valve replacement (Chronic) H/O mitral valve replacement (Chronic) H/O hemorrhoidectomy (Chronic) H/O arthroscopy of knee (Chronic) S/P TURP (Chronic) Family History Father HTN (hypertension) Mother Heart disease Diabetes Social History Current Living Situation: Significant Other Other Information That Helps Us Care for You: No Feels Safe at Home: Yes Safety Concerns: Feels Safe At This Time Smoking Status: Never smoker Hx Alcohol Use: Yes Alcohol type: beer Alcohol Intake Frequency: a few times a week Hx Substance Use: No Beliefs That Will Affect Care: None Preferred Language: Tanzanian Communication Ability: Effective Review of Systems As per HPI and otherwise Physical Exam 2 Vital Signs (Past 24 Hours): Last Vital Signs Temp 36.6 C 07/23/18 15:56 Pulse 55 L 07/23/18 15:56 Resp 18 07/23/18 15:56 BP 169/88 H 07/23/18 15:56 Pulse Ox 96 07/23/18 15:56 Physical Exam: Patient is a pleasant age-appropriate male no acute distress vital signs as above. HEENT exam: Cephalic and atraumatic Neck: No palpable thyromegaly or nodule there is no jugular venous distention is no carotid bruits Lungs: Clear to auscultation no audible rhonchi rales or wheeze Cardiovascular exam: Regular rate and rhythm with normal S1-S2 is a less than grade 1/6 systolic murmur is no diastolic murmur PMI is nondisplaced Abdomen soft nontender no palpable spine negative for jugular reflux Extremities: No significant edema intact distal pulse at 2/4 Neurologic: No acute complaints mentating appropriately moving all extremities with strength Results & Data Laboratory Results Laboratory Results - last 24 hr 07/23/18 07/23/18 07/23/18 09:30 09:30 09:30 WBC 7.27 RBC 5.15 Hgb 13.2 L Hct 42.0 MCV 81.6 MCH 25.6 MCHC 31.4 L RDW Std Deviation 51.7 H RDW Coeff of Kathy 17.4 H Plt Count 203 MPV 11.9 H Immature Gran % (Auto) 0.6 Neut % (Auto) 75.2 Lymph % (Auto) 14.7 [place] % (Auto) 6.9 Eos % (Auto) 1.9 Baso % (Auto) 0.7 Immature Gran # (Auto) 0.04 H Neut # (Auto) 5.47 Lymph # (Auto) 1.07 L [place] # (Auto) 0.50 Eos # (Auto) 0.14 Baso # (Auto) 0.05 PT Cancelled INR Cancelled APTT Cancelled PTT Ratio Cancelled Sodium 139 Potassium 3.7 Chloride 103 Carbon Dioxide 27 Anion Gap 9.0 BUN 18 Creatinine 1.26 Est Cr Clr Drug Dosing 66.4 Est GFR ( Amer) 64.2 Est GFR (Non-Af Amer) 55.4 BUN/Creatinine Ratio 14.0 Glucose 79 Calcium 8.9 Total Bilirubin 0.6 AST 21 ALT 22 Alkaline Phosphatase 128 H Troponin I < 0.015 Total Protein 7.9 Albumin 4.0 Globulin 3.9 Albumin/Globulin Ratio 1.0 Lipase 124 07/23/18 07/23/18 12:59 15:04 WBC RBC Hgb Hct MCV MCH MCHC RDW Std Deviation RDW Coeff of Kathy Plt Count MPV Immature Gran % (Auto) Neut % (Auto) Lymph % (Auto) [place] % (Auto) Eos % (Auto) Baso % (Auto) Immature Gran # (Auto) Neut # (Auto) Lymph # (Auto) [place] # (Auto) Eos # (Auto) Baso # (Auto) PT 17.3 H INR 1.8 H APTT PTT Ratio Sodium Potassium Chloride Carbon Dioxide Anion Gap BUN Creatinine Est Cr Clr Drug Dosing Est GFR ( Amer) Est GFR (Non-Af Amer) BUN/Creatinine Ratio Glucose Calcium Total Bilirubin AST ALT Alkaline Phosphatase Troponin I < 0.015 Total Protein Albumin Globulin Albumin/Globulin Ratio Lipase ECG Additional Comments: Sinus rhythm with marked first-degree AV block low atrial voltage consistent with prior Maze procedure _ (1) Chest pain Chest pain type: precordial pain Ischemic chest pain type: Qualified Code(s ): R07.2 - Precordial pain
[2018-07-23] MEDS ORDERED: NITROGLYCERIN 2% OINTMENT 30GM TUBE EXT SCH (18:00)
--- NOTE | 2018-07-23 20:33 | History & Physical Report ---
Date of Service July 23, 2018 History of Present Illness Primary Care Provider: Emigdio Lao MD Allergies Allergy/AdvReac Type Severity Reaction Status Date / Time No Known Allergies Allergy Unverified 07/23/18 11:21 Home Medications Home Medications Medication Instructions Recorded Confirmed Type amiodarone 200 mg PO DAILY@1500 07/09/18 07/23/18 History amoxicillin 4 cap PO UD 07/09/18 07/23/18 History atorvastatin 40 mg PO HS 07/09/18 07/23/18 History fluocinolone 1 applic TOPICAL DAILY PRN 07/09/18 07/23/18 History fluticasone 2 spray INTRANASAL HS 07/09/18 07/23/18 History furosemide 40 mg PO QAM 07/09/18 07/23/18 History methimazole 10 mg PO QAM 07/09/18 07/23/18 History metoprolol tartrate 50 mg PO BID 07/09/18 07/23/18 History polyethylene glycol 3350 1 packet PO QAM 07/09/18 07/23/18 History potassium chloride 10 mg PO BID 07/09/18 07/23/18 History quetiapine 50 mg PO HS 07/09/18 07/23/18 History sennosides-docusate sodium 1 tab PO DAILY@1500 07/09/18 07/23/18 History warfarin 1.5 mg PO SUTUWETHSA@1600 07/09/18 07/23/18 History warfarin 3 mg PO MOFR@1600 07/09/18 07/23/18 History aspirin 81 mg PO BID 07/23/18 07/23/18 History lisinopril [Zestril] 20 mg PO QAM 07/23/18 07/23/18 History Past Med/Surg History Medical History Hyperthyroidism (Chronic) Awaiting thyroid uptake scan scheduled in July 2017. Based on the results of the uptake scan, may need FNA of the thyroid nodule. ICH (intracerebral hemorrhage) (Resolved) 2012 Chronic anticoagulation (Chronic) Atrial fibrillation (Chronic) CAD (coronary artery disease) (Chronic) "cath 2016 - mild, non obstructive" GERD (gastroesophageal reflux disease) (Chronic) HLD (hyperlipidemia) (Chronic) Aortic root aneurysm (Chronic) "s/p repair" HTN (hypertension) (Chronic) Surgical History H/O maze procedure (Chronic) H/O aortic valve replacement (Chronic) H/O mitral valve replacement (Chronic) H/O hemorrhoidectomy (Chronic) H/O arthroscopy of knee (Chronic) S/P TURP (Chronic) Family History Father HTN (hypertension) Mother Heart disease Diabetes Social History Current Living Situation: Significant Other Other Information That Helps Us Care for You: No Feels Safe at Home: Yes Safety Concerns: Feels Safe At This Time Smoking Status: Never smoker Hx Alcohol Use: Yes Alcohol type: beer Alcohol Intake Frequency: a few times a week Hx Substance Use: No Beliefs That Will Affect Care: None Preferred Language: Fijian Communication Ability: Effective Physical Exam 2 Vital Signs (Past 24 Hours): Last Vital Signs Temp 36.7 C 07/23/18 20:13 Pulse 60 07/23/18 20:13 Resp 18 07/23/18 20:13 BP 147/83 H 07/23/18 20:13 Pulse Ox 93 07/23/18 20:13 Code Status & VTE Plan VTE Prophylaxis Plan VTE Prophylaxis will be ordered: Yes
--- NOTE | 2018-07-23 20:45 | Emergency Department Note ---
Entered by Neil Bustamante acting as a scribe for History of Present Illness General Chief complaint: Cardiac Assessment Time Seen by Provider: 07/23/18 09:54 Source: patient Limitations: no limitations History of Present Illness Provider complaint: Chest "pressure" Onset (ago): day(s) Location: chest Pain Consistency: + intermittent Current Pain Intensity: 6 Quality: + other ("pressure" ) Associated symptoms: no shortness of breath Treatments prior to arrival: other (Nitro/Baby Aspirin via EMS) The patient is a 73 year old male who presents to the Emergency Room after referral from his cardiology office with complaints of intermittent chest pain that began yesterday morning at 0330. The patient states that he was woken from sleep yesterday at 0330 with a "pressure" in his chest. He rates the severity of this pain as a 6/10, and notes that it resolved spontaneously after about 15 minutes. He did not have any pain throughout the rest of the day yesterday, and visited with his cardiology office. He went back to see his hotel controller today for another check-up and was referred to the ED for EKG changes. He is currently experiencing a constant pressure, which is not as severe as the pain yesterday morning. The patient did receive Aspirin and nitroglycerin via EMS prior to arrival which he notes improved the pressure. He denies any shortness of breath or diaphoresis, but he does have a headache. The patient adds that he was admitted to the hospital last week for hypertension and severe headaches. The patient's EKG from the outpatient office was reviewed and shows TWI and ST- depressions in the inferior and lateral leads. These changes are not present on the initial EKG obtained here at the emergency department. Home Medications Home Medications Medication Instructions Recorded Confirmed Type amiodarone 200 mg PO DAILY@1500 07/09/18 07/23/18 History amoxicillin 4 cap PO UD 07/09/18 07/23/18 History atorvastatin 40 mg PO HS 07/09/18 07/23/18 History fluocinolone 1 applic TOPICAL DAILY PRN 07/09/18 07/23/18 History fluticasone 2 spray INTRANASAL HS 07/09/18 07/23/18 History furosemide 40 mg PO QAM 07/09/18 07/23/18 History methimazole 10 mg PO QAM 07/09/18 07/23/18 History metoprolol tartrate 50 mg PO BID 07/09/18 07/23/18 History polyethylene glycol 3350 1 packet PO QAM 07/09/18 07/23/18 History potassium chloride 10 mg PO BID 07/09/18 07/23/18 History quetiapine 50 mg PO HS 07/09/18 07/23/18 History sennosides-docusate sodium 1 tab PO DAILY@1500 07/09/18 07/23/18 History warfarin 1.5 mg PO SUTUWETHSA@1600 07/09/18 07/23/18 History warfarin 3 mg PO MOFR@1600 07/09/18 07/23/18 History aspirin 81 mg PO BID 07/23/18 07/23/18 History lisinopril [Zestril] 20 mg PO QAM 07/23/18 07/23/18 History Allergies Allergy/AdvReac Type Severity Reaction Status Date / Time No Known Allergies Allergy Unverified 07/23/18 11:21 Past Med/Surg History Medical History Hyperthyroidism (Chronic) Awaiting thyroid uptake scan scheduled in July 2017. Based on the results of the uptake scan, may need FNA of the thyroid nodule. ICH (intracerebral hemorrhage) (Resolved) 2012 Chronic anticoagulation (Chronic) Atrial fibrillation (Chronic) CAD (coronary artery disease) (Chronic) "cath 2016 - mild, non obstructive" GERD (gastroesophageal reflux disease) (Chronic) HLD (hyperlipidemia) (Chronic) Aortic root aneurysm (Chronic) "s/p repair" HTN (hypertension) (Chronic) Surgical History H/O maze procedure (Chronic) H/O aortic valve replacement (Chronic) H/O mitral valve replacement (Chronic) H/O hemorrhoidectomy (Chronic) H/O arthroscopy of knee (Chronic) S/P TURP (Chronic) Family History Father HTN (hypertension) Mother Heart disease Diabetes Social History Current Living Situation: Significant Other Other Information That Helps Us Care for You: No Feels Safe at Home: Yes Safety Concerns: Feels Safe At This Time Smoking Status: Never smoker Hx Alcohol Use: Yes Alcohol type: beer Alcohol Intake Frequency: a few times a week Hx Substance Use: No Beliefs That Will Affect Care: None Preferred Language: Kittitian Communication Ability: Effective Review of Systems See HPI for pertinent positives & negatives. and A total of 10 systems reviewed and were otherwise negative Physical Exam Vital Signs Vital Signs - 24 hr 07/23/18 09:42 07/23/18 09:46 07/23/18 09:47 Temperature 37.2 C Temperature Source Oral Sepsis Recent Fever Within 48 Hours No Sepsis Action Taken by Nursing No Action Required Pulse Rate 55 L 55 L 55 L Pulse Rate [Right Brachial] Pulse Rhythm Regular Pulse Rhythm [Right Brachial] Pulse Strength Normal Respiratory Rate 16 12 9 L Respiratory Effort / Characteristics Non-Labored Respiratory Depth Normal Respiratory Pattern Regular Blood Pressure 135/88 135/88 Blood Pressure [Left Arm] Blood Pressure [Right Arm] Blood Pressure Mean 103 103 Blood Pressure Mean [Left Arm] Blood Pressure Mean [Right Arm] Blood Pressure Position Lying Blood Pressure Position [Left Arm] Blood Pressure Position [Right Arm] Pulse Oximetry 94 93 94 Oxygen Delivery Method Room Air 07/23/18 09:50 07/23/18 10:00 07/23/18 10:10 Temperature Temperature Source Sepsis Recent Fever Within 48 Hours Sepsis Action Taken by Nursing Pulse Rate 55 L 55 L 56 L Pulse Rate [Right Brachial] Pulse Rhythm Pulse Rhythm [Right Brachial] Pulse Strength Respiratory Rate 10 L 10 L 14 Respiratory Effort / Characteristics Respiratory Depth Respiratory Pattern Blood Pressure Blood Pressure [Left Arm] Blood Pressure [Right Arm] Blood Pressure Mean Blood Pressure Mean [Left Arm] Blood Pressure Mean [Right Arm] Blood Pressure Position Blood Pressure Position [Left Arm] Blood Pressure Position [Right Arm] Pulse Oximetry 94 92 96 Oxygen Delivery Method 07/23/18 10:20 07/23/18 10:30 07/23/18 10:40 Temperature Temperature Source Sepsis Recent Fever Within 48 Hours Sepsis Action Taken by Nursing Pulse Rate 62 56 L Pulse Rate [Right Brachial] Pulse Rhythm Pulse Rhythm [Right Brachial] Pulse Strength Respiratory Rate 13 15 18 Respiratory Effort / Characteristics Respiratory Depth Respiratory Pattern Blood Pressure Blood Pressure [Left Arm] Blood Pressure [Right Arm] Blood Pressure Mean Blood Pressure Mean [Left Arm] Blood Pressure Mean [Right Arm] Blood Pressure Position Blood Pressure Position [Left Arm] Blood Pressure Position [Right Arm] Pulse Oximetry 94 96 94 Oxygen Delivery Method 07/23/18 10:50 07/23/18 11:00 07/23/18 11:07 Temperature Temperature Source Sepsis Recent Fever Within 48 Hours Sepsis Action Taken by Nursing Pulse Rate 72 61 Pulse Rate [Right Brachial] Pulse Rhythm Pulse Rhythm [Right Brachial] Pulse Strength Respiratory Rate 21 29 H 17 Respiratory Effort / Characteristics Respiratory Depth Respiratory Pattern Blood Pressure 154/94 H Blood Pressure [Left Arm] Blood Pressure [Right Arm] Blood Pressure Mean 114 Blood Pressure Mean [Left Arm] Blood Pressure Mean [Right Arm] Blood Pressure Position Blood Pressure Position [Left Arm] Blood Pressure Position [Right Arm] Pulse Oximetry 97 94 96 Oxygen Delivery Method 07/23/18 11:10 07/23/18 11:20 07/23/18 11:30 Temperature Temperature Source Sepsis Recent Fever Within 48 Hours Sepsis Action Taken by Nursing Pulse Rate 56 L 54 L 55 L Pulse Rate [Right Brachial] Pulse Rhythm Pulse Rhythm [Right Brachial] Pulse Strength Respiratory Rate 19 18 16 Respiratory Effort / Characteristics Respiratory Depth Respiratory Pattern Blood Pressure Blood Pressure [Left Arm] Blood Pressure [Right Arm] Blood Pressure Mean Blood Pressure Mean [Left Arm] Blood Pressure Mean [Right Arm] Blood Pressure Position Blood Pressure Position [Left Arm] Blood Pressure Position [Right Arm] Pulse Oximetry 96 94 96 Oxygen Delivery Method 07/23/18 11:31 07/23/18 11:40 07/23/18 11:50 Temperature Temperature Source Sepsis Recent Fever Within 48 Hours Sepsis Action Taken by Nursing Pulse Rate 54 L 54 L 55 L Pulse Rate [Right Brachial] Pulse Rhythm Pulse Rhythm [Right Brachial] Pulse Strength Respiratory Rate 15 19 17 Respiratory Effort / Characteristics Respiratory Depth Respiratory Pattern Blood Pressure 155/93 H Blood Pressure [Left Arm] Blood Pressure [Right Arm] Blood Pressure Mean 113 Blood Pressure Mean [Left Arm] Blood Pressure Mean [Right Arm] Blood Pressure Position Blood Pressure Position [Left Arm] Blood Pressure Position [Right Arm] Pulse Oximetry 95 96 96 Oxygen Delivery Method 07/23/18 12:00 07/23/18 12:01 07/23/18 12:10 Temperature Temperature Source Sepsis Recent Fever Within 48 Hours Sepsis Action Taken by Nursing Pulse Rate 54 L 54 L 54 L Pulse Rate [Right Brachial] Pulse Rhythm Pulse Rhythm [Right Brachial] Pulse Strength Respiratory Rate 17 17 12 Respiratory Effort / Characteristics Respiratory Depth Respiratory Pattern Blood Pressure 159/92 H Blood Pressure [Left Arm] Blood Pressure [Right Arm] Blood Pressure Mean 114 Blood Pressure Mean [Left Arm] Blood Pressure Mean [Right Arm] Blood Pressure Position Blood Pressure Position [Left Arm] Blood Pressure Position [Right Arm] Pulse Oximetry 97 96 95 Oxygen Delivery Method 07/23/18 12:20 07/23/18 12:30 07/23/18 12:31 Temperature Temperature Source Sepsis Recent Fever Within 48 Hours Sepsis Action Taken by Nursing Pulse Rate 63 64 58 L Pulse Rate [Right Brachial] Pulse Rhythm Pulse Rhythm [Right Brachial] Pulse Strength Respiratory Rate 18 26 H 21 Respiratory Effort / Characteristics Respiratory Depth Respiratory Pattern Blood Pressure 166/93 H Blood Pressure [Left Arm] Blood Pressure [Right Arm] Blood Pressure Mean 117 Blood Pressure Mean [Left Arm] Blood Pressure Mean [Right Arm] Blood Pressure Position Blood Pressure Position [Left Arm] Blood Pressure Position [Right Arm] Pulse Oximetry 98 97 98 Oxygen Delivery Method 07/23/18 12:40 07/23/18 12:50 07/23/18 13:43 Temperature 36.6 C Temperature Source Oral Sepsis Recent Fever Within 48 Hours Sepsis Action Taken by Nursing Pulse Rate 55 L 55 L Pulse Rate [Right Brachial] 56 L Pulse Rhythm Pulse Rhythm [Right Brachial] Regular Pulse Strength Respiratory Rate 13 13 20 Respiratory Effort / Characteristics Non-Labored Spontaneous Respiratory Depth Normal Respiratory Pattern Blood Pressure Blood Pressure [Left Arm] Blood Pressure [Right Arm] 186/99 H Blood Pressure Mean Blood Pressure Mean [Left Arm] Blood Pressure Mean [Right Arm] 128 Blood Pressure Position Blood Pressure Position [Left Arm] Blood Pressure Position [Right Arm] Pulse Oximetry 95 95 96 Oxygen Delivery Method Room Air 07/23/18 15:56 07/23/18 20:13 Temperature 36.6 C 36.7 C Temperature Source Oral Oral Sepsis Recent Fever Within 48 Hours Sepsis Action Taken by Nursing Pulse Rate Pulse Rate [Right Brachial] 55 L 60 Pulse Rhythm Pulse Rhythm [Right Brachial] Pulse Strength Respiratory Rate 18 18 Respiratory Effort / Characteristics Respiratory Depth Respiratory Pattern Blood Pressure Blood Pressure [Left Arm] 147/83 H Blood Pressure [Right Arm] 169/88 H Blood Pressure Mean Blood Pressure Mean [Left Arm] 104 Blood Pressure Mean [Right Arm] 115 Blood Pressure Position Blood Pressure Position [Left Arm] Lying Blood Pressure Position [Right Arm] Lying Pulse Oximetry 96 93 Oxygen Delivery Method Room Air Room Air GENERAL: Patient is in no acute distress. HEENT: No acute trauma, normocephalic atraumatic, mucous membranes moist, no nasal congestion, no scleral icterus. NECK: No stridor, no adenopathy, no meningismus, trachea is midline. LUNGS: Clear to auscultation bilaterally, no wheeze, no rhonchi, breath sounds equal. HEART: Bradycardic rate with regular rhythm. 2/6 systolic murmur appreciated. ABDOMEN: Soft, nontender, bowel sounds positive, no hernias, no peritonitis. EXTREMITIES: No cyanosis or edema, full range of motion of all the joints without pain or difficulty, no signs for acute trauma. NEUROLOGIC: Oriented x 3, no acute motor or sensory deficits, no focal weakness. SKIN: No rash, no jaundice, no diaphoresis. Course 1003: Past medical records reviewed. The patient was evaluated in room C9, and a complete history and physical examination were performed. 1141: I reviewed the patient's case with Lara Parra PA-C. She will evaluate the patient for further management. Consultations Consultation #1: 1141: I reviewed the patient's case with Lara Parra PA-C. She will evaluate the patient for further management. Administered Medications Senna/Docusate Sodium (Senokot S) 1 tab PO DAILY@1500 ZACHERY Stop: 08/22/18 14:59 Last Admin: 07/23/18 15:52 Dose: 1 tab Discontinued Medications Amiodarone HCl (Cordarone) 200 mg PO DAILY@1500 ZACHERY Stop: 08/22/18 14:59 Last Admin: 07/23/18 15:51 Dose: 200 mg Amlodipine Besylate (Norvasc) 5 mg PO NOW ONE Stop: 07/23/18 14:31 Last Admin: 07/23/18 15:49 Dose: 5 mg Lisinopril (Zestril) 15 mg PO ONE ONE Stop: 07/23/18 14:37 Last Admin: 07/23/18 15:49 Dose: 15 mg Nitroglycerin (Nitro-Bid 2%) 0.5 inch EXT NOW STA Stop: 07/23/18 10:07 Last Admin: 07/23/18 11:08 Dose: 0.5 inch Medical Decision Making Differential Diagnosis Differential Diagnosis includes: Angina, Myocardial infarction, dysrhythmia, anemia, electrolyte or metabolic abnormality, musculoskeletal pain, pulmonary embolism, aortic dissection. Medical Records Attestation: I reviewed the patient's medical records. Home Medications Current Medication List: was personally reviewed by me Laboratory Data Attestation: I reviewed the patient's lab results. Result diagrams: 07/23/18 09:30 07/23/18 09:30 Lab Results 07/23/18 07/23/18 07/23/18 Range/Units 09:30 09:30 09:30 WBC 7.27 (4.8-10.8) K/uL RBC 5.15 (4.7-6.1) M/uL Hgb 13.2 L (14.0-18.0) g/dL Hct 42.0 (42-52) % MCV 81.6 (80-100) fL MCH 25.6 (25-34) pg MCHC 31.4 L (32-36) g/dL RDW Std Deviation 51.7 H (36.4-46.3) fL RDW Coeff of Kathy 17.4 H (11.5-14.5) % Plt Count 203 (130-400) K/uL MPV 11.9 H (7.4-10.4) fL Immature Gran % (Auto) 0.6 % Neut % (Auto) 75.2 % Lymph % (Auto) 14.7 % Worth % (Auto) 6.9 % Eos % (Auto) 1.9 % Baso % (Auto) 0.7 % Immature Gran # (Auto) 0.04 H (0.00-0.02) K/uL Neut # (Auto) 5.47 (1.4-6.5) K/uL Lymph # (Auto) 1.07 L (1.2-3.4) K/uL Worth # (Auto) 0.50 (0.11-0.59) K/uL Eos # (Auto) 0.14 (0-0.5) K/uL Baso # (Auto) 0.05 (0-0.2) K/uL PT Cancelled INR Cancelled APTT Cancelled PTT Ratio Cancelled Sodium 139 (136-145) mmol/L Potassium 3.7 (3.5-5.1) mmol/L Chloride 103 (98-107) mmol/L Carbon Dioxide 27 (21-32) mmol/L Anion Gap 9.0 (3-11) BUN 18 (7-18) mg/dl Creatinine 1.26 (0.6-1.4) mg/dl Est Cr Clr Drug Dosing 66.4 ml/min Est GFR ( Amer) 64.2 Est GFR (Non-Af Amer) 55.4 BUN/Creatinine Ratio 14.0 (10-20) Glucose 79 (70-99) mg/dl Calcium 8.9 (8.5-10.1) mg/dl Total Bilirubin 0.6 (0.2-1) mg/dl AST 21 (15-37) U/L ALT 22 (12-78) U/L Alkaline Phosphatase 128 H (45-117) U/L Troponin I < 0.015 (0-0.045) ng/ml Total Protein 7.9 (6.4-8.2) gm/dl Albumin 4.0 (3.4-5.0) gm/dl Globulin 3.9 (2.5-4.0) gm/dl Albumin/Globulin Ratio 1.0 (0.9-2) Lipase 124 (73-393) U/L 07/23/18 07/23/18 Range/Units 12:59 15:04 WBC (4.8-10.8) K/uL RBC (4.7-6.1) M/uL Hgb (14.0-18.0) g/dL Hct (42-52) % MCV (80-100) fL MCH (25-34) pg MCHC (32-36) g/dL RDW Std Deviation (36.4-46.3) fL RDW Coeff of Kathy (11.5-14.5) % Plt Count (130-400) K/uL MPV (7.4-10.4) fL Immature Gran % (Auto) % Neut % (Auto) % Lymph % (Auto) % Worth % (Auto) % Eos % (Auto) % Baso % (Auto) % Immature Gran # (Auto) (0.00-0.02) K/uL Neut # (Auto) (1.4-6.5) K/uL Lymph # (Auto) (1.2-3.4) K/uL Worth # (Auto) (0.11-0.59) K/uL Eos # (Auto) (0-0.5) K/uL Baso # (Auto) (0-0.2) K/uL PT 17.3 H INR 1.8 H APTT PTT Ratio Sodium (136-145) mmol/L Potassium (3.5-5.1) mmol/L Chloride (98-107) mmol/L Carbon Dioxide (21-32) mmol/L Anion Gap (3-11) BUN (7-18) mg/dl Creatinine (0.6-1.4) mg/dl Est Cr Clr Drug Dosing ml/min Est GFR ( Amer) Est GFR (Non-Af Amer) BUN/Creatinine Ratio (10-20) Glucose (70-99) mg/dl Calcium (8.5-10.1) mg/dl Total Bilirubin (0.2-1) mg/dl AST (15-37) U/L ALT (12-78) U/L Alkaline Phosphatase (45-117) U/L Troponin I < 0.015 (0-0.045) ng/ml Total Protein (6.4-8.2) gm/dl Albumin (3.4-5.0) gm/dl Globulin (2.5-4.0) gm/dl Albumin/Globulin Ratio (0.9-2) Lipase (73-393) U/L Imaging Data Attestation: I personally reviewed and interpreted this imaging study as follows : Radiologist's Impression: XR chest 1V portable CLINICAL HISTORY: 73 years-old Male presenting with Chest Pain. TECHNIQUE: Portable upright AP view of the chest was obtained. COMPARISON: CTA from 07/09/2018 and chest x-ray from 07/09/2018. FINDINGS: The patient is slightly [place] rotated. Median sternotomy wires and left atrial appendage occlusion device noted. Atherosclerosis of aortic arch. Cardiac silhouette moderately enlarged. Pulmonary vascular prominence. Prominent lung markings likely vascular. No focal opacity. No large effusion or pneumothorax. IMPRESSION: 1. Cardiomegaly with volume overload. No xuan pulmonary edema. Findings are similar to prior exam. Electronically signed by: Gary Dodge M.D. 07/23/2018 10:37 AM ECG Data Attestation: I personally reviewed and interpreted this ECG as follows: Indication: chest pain Rate (beats per minute): 55 Rhythm: sinus bradycardia Findings: no PVC and no ST elevation Comparison ECG Date: from (Outpatient office today) Change: the following changes noted (TWI and STD in inferior and lateral leads are no longer present) Blood Pressure Blood Pressure Findings: Elevated blood pressure Blood Pressure Disposition: further management by hospitalist MDM Narrative There is no leukocytosis or concerning anemia. INR is elevated consistent with his Coumadin use. There is no significant electrolyte abnormality, kidney failure or hepatitis. No pancreatitis. EKG shows a sinus bradycardia, there was no evidence for ST or T wave abnormalities. The T wave inversions noted at the outpatient office had resolved. Cardiac enzyme testing x1 is not consistent with acute cardiac injury. Chest film does not show mediastinal widening or pneumothorax. Some mild volume overload was suspected. The patient presents with chest pressure. He had EKG changes earlier in the outpatient office which have now resolved. Patient had already received oral aspirin. He was given Nitropaste. He is currently resting comfortably. Given his description of pain, given the EKG changes and his history, I do think further cardiac workup is warranted. I did speak with case management, I did discuss all results with the patient. The on-call hospitalist was consulted. Impression & Plan Chest pain, precordial, Acute electrocardiogram changes Discharge Plan Visit Data *Final* Discharge Date/Time: 07/23/18 13:12 Chief Complaint: Cardiac Assessment ED Provider: Glenn Mancuso Discharge Problem: Chest pain, precordial, Acute electrocardiogram changes Patient Disposition: Admitted As Inpatient Discharge Instructions Interventions: ED Discharge Assessment Last Done: 07/23/18 13:12 The yessiibe's documentation has been prepared under my direction and personally reviewed by me in its entirety. I confirm that the note above accurately reflects all work, treatment, procedures, and medical decision making performed by me.
[2018-07-23] MEDS: POTASSIUM CHLORIDE 10 MEQ TABCR PO SCH (20:57)
[2018-07-23] MEDS: ASPIRIN 81 MG ECTAB PO SCH (20:57)
[2018-07-23] MEDS: FLUTICASONE PROPIONATE NA SPR 16 GM BTL SCH (20:57)
[2018-07-23] MEDS: ATORVASTATIN 40 MG TAB PO SCH (20:58)
[2018-07-23] MEDS: QUETIAPINE FUMARATE 25 MG TABLET PO SCH (20:58)
[2018-07-23] MEDS: METOPROLOL TARTRATE 25 MG TAB PO SCH (20:59)
[2018-07-23] MEDS ORDERED: METOPROLOL TARTRATE 50 MG TAB PO SCH (21:00)
[2018-07-24 07:07] LABS: Hematocrit (blood only) 39.9 % (42-52); Hemoglobin 12.5 g/dL (14.0-18.0); Mean Corpuscular Hgb Conc 31.3 g/dL (32-36); Mean Corpuscular Volume 80.8 fL (80-100); Mean Platelet Volume 11.1 fL (7.4-10.4); Platelet Count 182 K/uL (130-400); RDW Coefficient of Variation 17.3 % (11.5-14.5); RDW Standard Deviation 50.9 fL (36.4-46.3); Red Blood Count 4.94 M/uL (4.7-6.1); White Blood Count 7.03 K/uL (4.8-10.8)
[2018-07-24 07:15] LABS: INR 1.6 (0.9-1.1); Prothrombin Time 15.8 Seconds (9.0-12.0)
[2018-07-24 07:40] LABS: BUN Creatinine Ratio 14.3 (10-20); Calcium 8.5 mg/dl (8.5-10.1); Creatinine Clr Calc Pharmacy 66.7 ml/min; Est GFR (African American) 66.8; Est GFR (Non-African American) 57.6; Potassium 3.7 mmol/L (3.5-5.1)
[2018-07-24] MEDS: ASPIRIN 81 MG ECTAB PO SCH ×2 (08:35→20:44)
[2018-07-24] MEDS: METOPROLOL TARTRATE 25 MG TAB PO SCH ×2 (08:35→20:44)
[2018-07-24] MEDS: LISINOPRIL 20 MG TAB PO SCH (08:35)
[2018-07-24] MEDS: POTASSIUM CHLORIDE 10 MEQ TABCR PO SCH ×2 (08:35→20:44)
[2018-07-24] MEDS: methIMAzole 5 MG TABLET PO SCH (08:36)
[2018-07-24] MEDS: AMLODIPINE BESYLATE 5 MG TAB PO SCH (08:37)
[2018-07-24] MEDS: POLYETHYLENE (MIRALAX) 17 GM PACK PO SCH (08:40)
[2018-07-24] MEDS ORDERED: methIMAzole 5 MG TABLET PO SCH (09:00)
[2018-07-24] MEDS ORDERED: FUROSEMIDE 40 MG TAB PO SCH (09:00)
--- NOTE | 2018-07-24 11:36 | Cardiology Progress Note ---
Date of Service July 24, 2018 Assessment & Plan (1) Chest pain: Patient had experienced 2 episodes of heavy chest pressure discomfort now resolved outpatient EKGs did demonstrate T wave inversion in inferior leads no longer present initial cardiac enzymes are negative. Initial review of echocardiogram at bedside reveals preserved LV systolic function normally functioning aortic and mitral valve prostheses Plan we will observe, serial enzymes possibly consider diagnostic cardiac catheterization to reassess coronary disease given dynamic EKG changes I am suspicious this may be in response to bradycardia and hypertension Will hold amiodarone, reduce metoprolol dosing initially no warfarin this evening 07/24/2018: Given recurrent symptoms last night discussed options of management and recommended undergoing diagnostic cardiac catheterization procedure and risks explained in detail with the patient and informed consent obtained further recommendations pending the results (2) Acute electrocardiogram changes: As above proceed to diagnostic cardiac catheterization (3) H/O aortic valve replacement: (4) H/O mitral valve replacement: (5) Paroxysmal atrial fibrillation: No noted recurrences since March 2016. Patient did have intra- surgical Maze procedure and has remained on amiodarone chronically. Will hold amiodarone at this time as I suspect it is aggravating multiple issues including bradycardia and recent hyperthyroidism Subjective Patient seen and examined chart medications telemetry reviewed. Patient once again had chest heaviness and tightness last evening. No arrhythmias on telemetry. Notes no other focal complaints. No bleeding difficulties Physical Exam 2 Vital Signs (Past 24 Hours): Last Vital Signs Temp 36.5 C 07/24/18 11:10 Pulse 62 07/24/18 11:10 Resp 18 07/24/18 11:10 BP 161/90 H 07/24/18 11:10 Pulse Ox 97 07/24/18 11:10 Physical Exam: Patient is a pleasant age-appropriate male no acute distress vital signs as above. HEENT exam: Cephalic and atraumatic Neck: No palpable thyromegaly or nodule there is no jugular venous distention is no carotid bruits Lungs: Clear to auscultation no audible rhonchi rales or wheeze Cardiovascular exam: Regular rate and rhythm with normal S1-S2 is a less than grade 1/6 systolic murmur is no diastolic murmur PMI is nondisplaced Abdomen soft nontender no palpable spine negative for jugular reflux Extremities: No significant edema intact distal pulse at 2/4 Neurologic: No acute complaints mentating appropriately moving all extremities with strength Results & Data Laboratory Results Laboratory Results - last 24 hr 07/23/18 07/23/18 07/23/18 12:59 15:04 21:11 WBC RBC Hgb Hct MCV MCH MCHC RDW Std Deviation RDW Coeff of Kathy Plt Count MPV PT 17.3 H INR 1.8 H Sodium Potassium Chloride Carbon Dioxide Anion Gap BUN Creatinine Est Cr Clr Drug Dosing Est GFR ( Amer) Est GFR (Non-Af Amer) BUN/Creatinine Ratio Glucose Calcium Troponin I < 0.015 < 0.015 07/24/18 07/24/18 07/24/18 06:46 06:46 06:46 WBC 7.03 RBC 4.94 Hgb 12.5 L Hct 39.9 L MCV 80.8 MCH 25.3 MCHC 31.3 L RDW Std Deviation 50.9 H RDW Coeff of Kathy 17.3 H Plt Count 182 MPV 11.1 H PT 15.8 H INR 1.6 H Sodium 139 Potassium 3.7 Chloride 106 Carbon Dioxide 27 Anion Gap 6.0 BUN 17 Creatinine 1.22 Est Cr Clr Drug Dosing 66.7 Est GFR ( Amer) 66.8 Est GFR (Non-Af Amer) 57.6 BUN/Creatinine Ratio 14.3 Glucose 83 Calcium 8.5 Troponin I _ (1) Chest pain Chest pain type: precordial pain Ischemic chest pain type: Qualified Code(s ): R07.2 - Precordial pain
[2018-07-24] MEDS ORDERED: MIDAZOLAM HCL 1 MG/ML 2ML VIAL ONE (12:28)
[2018-07-24] MEDS ORDERED: fentaNYL citrate 100 MCG/2 ML VIAL ONE (12:28)
[2018-07-24] MEDS ORDERED: HEPARIN (PORCINE) 1000 UNIT/ML 10 ML (CATH LAB USE ONLY) ONE (12:28)
[2018-07-24] MEDS ORDERED: LIDOCAINE HCL 1% 20 ML VIAL ONE (12:33)
--- NOTE | 2018-07-24 13:39 | Pre Anesthesia Assessment ---
Date of Service July 24, 2018 Pre Sedation Assessment Vital Signs Temp Pulse Pulse Pulse Resp BP BP 07/24/18 13:28 69 16 168/89 H 07/24/18 11:10 36.5 C 62 18 161/90 H 07/24/18 07:04 36.6 C 58 L 19 153/75 H 07/24/18 04:56 36.5 C 90 17 159/89 H 07/24/18 00:56 36.4 C L 90 18 146/83 H 07/23/18 20:22 57 L 07/23/18 20:13 36.7 C 60 18 147/83 H 07/23/18 15:56 36.6 C 55 L 18 169/88 H 07/23/18 14:36 07/23/18 13:43 36.6 C 56 L 20 186/99 H Pulse Ox Pulse Ox 07/24/18 13:28 95 07/24/18 11:10 97 07/24/18 07:04 96 07/24/18 04:56 94 07/24/18 00:56 92 07/23/18 20:22 95 07/23/18 20:13 93 07/23/18 15:56 96 07/23/18 14:36 95 07/23/18 13:43 96 Cardiovascular + regular rate Respiratory normal respiratory effort, lungs clear to auscultation Pre-Sedation Airway Assessment Smoking Status: Never smoker Hx Sleep Apnea: No Hx Difficult Intubation: No Short, Thick Neck: No Mallampati Class: II Procedure Planning Contraindications for Sedation: none Current Medications Reviewed: Yes Notes The planned sedation has been discussed with the patient. Informed Consent was obtained. I have identified the patient, determined the appropriateness of sedation and have assessed the patient immediately prior to the procedure. All medicine(s) and interventions are by my order.
--- NOTE | 2018-07-24 13:45 | Cardiac Catheterization ---
Cardiac Cath Procedure: Brief Procedure Date July 24, 2018 Pre-Procedure Diagnosis Pre-Procedure Diagnosis: Cardiothoracic Symptom AUC Score AUC Score: 7 Post-Procedure Diagnosis Post-Procedure Diagnosis: Mild CAD Procedure(s) Performed Procedure(s) Performed: Coronary Angiography Factory Helper Cesar De Oliveira MD Estimated Blood Loss Estimated Blood Loss: <15cc Medication(s) Medication(s): Fentanyl (12.5 mcg IV), Lidocaine 1% (Local infiltration of right radial access site), Nicardipine (250 mcg intra-arterial after arterial sheath inserted) and Versed (1 mg IV) Preliminary Findings Large-caliber left dominant coronary anatomy Left main is very large and short bifurcating to give tries to large caliber left anterior descending and left circumflex there is no disease in left main Left anterior descending is type III in distribution and gives rise to a large septal branch small first diagonal branch and a large second diagonal branch for coursing to the apex. Within the left anterior descending there is a 40% narrowing at the origin of the large second diagonal Left circumflex is dominant very large in caliber and distribution and gives rise to a small first marginal branch a large second marginal branch posterior lateral branch and a large posterior descending artery There are moderate irregularities in the left circumflex 30% narrowing in the proximal portion of the second marginal Right coronary is nondominant moderate caliber is an eccentric upward takeoff and consists of 2 right ventricular branches. There is a 50% narrowing due to acute band shortly after its origin Recommendations Recommendations: Medical Therapy and/or Counseling Specimens Specimens: None Fluids (cc crystalloids) Fluids (cc crystalloids): 70 Anesthesia Start time 1259, stop time 1328 Procedural Complication(s) None Patient has a tortuous left subclavian. Origin of the nondominant right coronary arteries very lateral was able to be injected obliquely using a AR-2 Disposition PCU
--- NOTE | 2018-07-24 14:01 | Cardiac Catheterization ---
Cardiac Cath Procedure Full Procedure Date July 24, 2018 Pre-Procedure Diagnosis Pre-Procedure Diagnosis: Cardiothoracic Symptom AUC Score AUC Score: 7 Post-Procedure Diagnosis Post-Procedure Diagnosis: Mild CAD Procedure(s) Performed Procedure(s) Performed: Coronary Angiography Programs Assistant Cesar De Oliveira MD Circular Ripsaw Operator(s) Germain Jacobsen Estimated Blood Loss Estimated Blood Loss: <15cc Medication(s) Medication(s): Fentanyl (12.5 mcg IV), Lidocaine 1% (Local infiltration of right radial access site), Nicardipine (250 mcg intra-arterial after arterial sheath inserted) and Versed (1 mg IV) Summary of Findings Large-caliber left dominant coronary anatomy Left main is very large and short bifurcating to give tries to large caliber left anterior descending and left circumflex there is no disease in left main Left anterior descending is type III in distribution and gives rise to a large septal branch small first diagonal branch and a large second diagonal branch for coursing to the apex. Within the left anterior descending there is a 40% narrowing at the origin of the large second diagonal Left circumflex is dominant very large in caliber and distribution and gives rise to a small first marginal branch a large second marginal branch posterior lateral branch and a large posterior descending artery There are moderate irregularities in the left circumflex 30% narrowing in the proximal portion of the second marginal Right coronary is nondominant moderate caliber is an eccentric upward takeoff and consists of 2 right ventricular branches. There is a 50% narrowing due to acute band shortly after its origin Hemodynamics Rest Ao:: 132/68/95 Final Ao: 132/71/97 LV: NA Recommendations Recommendations: Medical Therapy and/or Counseling Specimens Specimens: None Radiation Exposure (mGy) 2550 Contrast (mls) 137 Fluids (cc crystalloids) Fluids (cc crystalloids): 70 Anesthesia Start time 1259, stop time 1328 Procedural Complication(s) None Patient has a tortuous left subclavian. Origin of the nondominant right coronary arteries very lateral was able to be injected obliquely using a AR-2 Disposition PCU ACC Data: [place] Cardiac Status Clinical evaluation leading to the procedure CAD Presenation: Stable angina Anginal Classification: CCS II Heart Failure: No Cardiogenic Shock within 24 Hours: No Cardiac Arrest within 24 Hours: No Imaging Studies Past 6 Months: No Stress Studies Past 6 Months: No Standard Exercise Test: No Stress Echocardiogram: No Stress Testing w/SPECT MPI: No Cardiac CTA: No Coronary Anatomy Dominant: Left Left Main (% Stenosis): Normal LAD (% Stenosis): Mid (40% origin of the large D2) D1 (% Stenosis): Normal D2 (% Stenosis): Normal Circumflex (% Stenosis): Mid (Mild to moderate irregularities) OM1 (% Stenosis): Normal (Small) OM2 (% Stenosis): Proximal (30% vessel being large bifurcating) L PL1 (% Stenosis): Normal L PDA (% Stenosis): Normal RCA (% Stenosis): Proximal Diagnostic Physicians Name: Cesar De Oliveira MD Closure Device Recommendations: Medical Therapy and/or Counseling
[2018-07-24] MEDS: SODIUM CHLORIDE 0.9% 1000ML 1,000 ML IV SCH ×2 (15:22→23:27)
[2018-07-24] MEDS: DOCUSATE SODIUM/SENNA 50/8.6MG TAB PO SCH (15:22)
[2018-07-24] MEDS ORDERED: AMLODIPINE BESYLATE 5 MG TAB PO ONE (16:29)
--- NOTE | 2018-07-24 16:29 | Cardiology Progress Note ---
Date of Service July 24, 2018 Assessment & Plan (1) Chest pain: Patient had experienced 2 episodes of heavy chest pressure discomfort now resolved outpatient EKGs did demonstrate T wave inversion in inferior leads no longer present initial cardiac enzymes are negative. Initial review of echocardiogram at bedside reveals preserved LV systolic function normally functioning aortic and mitral valve prostheses Plan we will observe, serial enzymes possibly consider diagnostic cardiac catheterization to reassess coronary disease given dynamic EKG changes I am suspicious this may be in response to bradycardia and hypertension Will hold amiodarone, reduce metoprolol dosing initially no warfarin this evening Catheterization as above demonstrated no significant obstructive disease Recommendation continue reduced dose metoprolol, discontinue amiodarone Treat hypertension would add amlodipine at 5 mg/day Patient will need close clinical follow-up of thyroid issues after discontinuation of amiodarone (2) Acute electrocardiogram changes: As above proceed to diagnostic cardiac catheterization (3) H/O aortic valve replacement: (4) H/O mitral valve replacement: (5) Paroxysmal atrial fibrillation: No noted recurrences since March 2016. Patient did have intra- surgical Maze procedure and has remained on amiodarone chronically. Will hold amiodarone at this time as I suspect it is aggravating multiple issues including bradycardia and recent hyperthyroidism Subjective Patient seen and examined chart medications telemetry reviewed. Patient once again had chest heaviness and tightness last evening. No arrhythmias on telemetry. Notes no other focal complaints. No bleeding difficulties Underwent cardiac catheterization earlier today which demonstrated no significant obstructive disease of the chronic 40% mid LAD stenosis and a 50% narrowing at the origin of a small nondominant right coronary artery ( nonsignificant) Physical Exam 2 Vital Signs (Past 24 Hours): Last Vital Signs Temp 36.7 C 07/24/18 14:54 Pulse 56 L 07/24/18 14:54 Resp 20 07/24/18 14:54 BP 161/91 H 07/24/18 14:54 Pulse Ox 96 07/24/18 14:54 ENMT: Mallampati Class: II Respiratory: normal respiratory effort, lungs clear to auscultation Cardiovascular: Rate/Rhythm: regular rate _ (1) Chest pain Chest pain type: precordial pain Ischemic chest pain type: Qualified Code(s ): R07.2 - Precordial pain
--- NOTE | 2018-07-24 16:41 | Hospitalist Progress Note ---
Date of Service July 24, 2018 Assessment & Plan (1) Chest pain: This in the setting of EKG changes--cath today with clean coronaries. Amio was stopped. No further chest pain at this time. Uncertain etiology. Cont to monitor. (2) HTN (hypertension): Slightly elevated in the low 150s systolic. Recent increase in lisionopril this week to 20mg PO daily per PCP. Cards added 5mg Norvasc, cont metoprolol 50 BID. Cont titration as needed. (3) Atrial fibrillation: Restart coumadin once cleared by Cardiology. Amio stopped. Rate controlled with metoprolol (4) Hyperthyroidism: -Outpatient labs yesterday showed TSH 18.39, free T4 0.847 -Continue methimazole pending Outpatient thyroid uptake scan scheduled for 08/24 -amio poss aggravating this issue and this was stopped. (5) DVT prophylaxis: -On Coumadin Full Code Dispo-telemetry Miladys Rowe DO [facility] Hospitalist Subjective 73 yo M with multiple medicatl problems presents with chest pain and EKG changes. Underwent cath this am which was clean. Pt is no distress. Denies chest pain or shortness of breath at this time. Tolerating PO. Denies pain. Physical Exam 2 Vital Signs (Past 24 Hours): Last Vital Signs Temp 36.7 C 07/24/18 14:54 Pulse 56 L 07/24/18 14:54 Resp 20 07/24/18 14:54 BP 161/91 H 07/24/18 14:54 Pulse Ox 96 07/24/18 14:54 CONSTITUTIONAL: WNWD, vitals as above, generally well-appearing EYES: normal conjuctivae, no scleral icterus ENT: MMM RESPIRATORY: clear to auscultation bilaterally, no crackles, rales or wheezes, normal respiratory effort CARDIOVASCULAR: regular rate and rhythm, S1 and 2 heard without murmurs, gallops or rubs, no JVD, no peripheral edema GASTROINTESTINAL: normal bowel sounds, soft, nontender, nondistended MUSCULOSKELETAL: strength 5/5 throughout, head is normocephalic and atraumatic SKIN: warm and dry, R wrist wound with gauze from recent cath. NEUROLOGIC: CN 2-12 grossly intact, normal cognition, normal speech, no gross focal deficits. PSYCHIATRIC: alert cooperative and oriented to person, place and time. Results & Data Laboratory Results Short CBC 07/24/18 Range/Units 06:46 WBC 7.03 (4.8-10.8) K/uL Hgb 12.5 L (14.0-18.0) g/dL Hct 39.9 L (42-52) % Plt Count 182 (130-400) K/uL BMP 07/24/18 06:46 Sodium 139 Potassium 3.7 Chloride 106 Carbon Dioxide 27 BUN 17 Creatinine 1.22 Glucose 83 Calcium 8.5 Medications Administered Current Inpatient Medications Acetaminophen (Tylenol) 650 mg PO Q4H PRN PRN Reason: Pain or Fever Stop: 08/22/18 12:40 Amlodipine Besylate (Norvasc) 5 [facility] [place] Stop: 08/23/18 08:59 Last Admin: 07/24/18 08:37 Dose: 5 mg Amlodipine Besylate (Norvasc) 5 mg PO Q[facility] [place] Stop: 08/24/18 08:59 Aspirin (Ecotrin) 81 mg PO BID [facility] Stop: 08/22/18 20:59 Last Admin: 07/24/18 20:44 Dose: 81 mg Atorvastatin Calcium (Lipitor) 40 mg PO [facility] Stop: 08/22/18 20:59 Last Admin: 07/24/18 20:44 Dose: 40 mg Fluticasone Propionate (Flonase) 2 sprays NA HS [facility] Stop: 08/22/18 20:59 Last Admin: 07/24/18 20:44 Dose: 2 sprays Sodium Chloride (Nss 1000ml) 1,000 mls @ 125 mls/hr IV .Q8H [facility] Stop: 08/23/18 16:50 Last Admin: 07/24/18 23:27 Dose: 125 mls/hr Lisinopril (Zestril) 20 mg PO [facility] Stop: 08/23/18 08:59 Last Admin: 07/24/18 08:35 Dose: 20 mg Methimazole (Tapazole) 5 mg PO [facility] Stop: 08/23/18 08:59 Last Admin: 07/24/18 08:36 Dose: 5 mg Metoprolol Tartrate (Lopressor) 25 mg PO BID [facility] Stop: 08/22/18 20:59 Last Admin: 07/24/18 20:44 Dose: 25 mg Nitroglycerin (Nitrostat) 0.4 mg SL UD PRN PRN Reason: Chest Pain Stop: 08/22/18 14:35 Polyethylene Glycol (Miralax Powder Packet) 17 gm PO QAM [facility] Stop: 08/23/18 08:59 Last Admin: 07/24/18 08:40 Dose: Not Given Potassium Chloride (Klor-Con M10) 10 meq PO BID [facility] Stop: 08/22/18 20:59 Last Admin: 07/24/18 20:44 Dose: 10 meq Quetiapine Fumarate (Seroquel) 50 mg PO HS [facility] Stop: 08/22/18 20:59 Last Admin: 07/24/18 20:43 Dose: 50 mg Senna/Docusate Sodium (Senokot S) 1 tab PO DAILY@1500 [facility] Stop: 08/22/18 14:59 Last Admin: 07/24/18 15:22 Dose: 1 tab _ (1) Atrial fibrillation Atrial fibrillation type: paroxysmal Qualified Code(s): I48.0 - Paroxysmal atrial fibrillation (2) Chest pain Chest pain type: precordial pain Ischemic chest pain type: Qualified Code(s ): R07.2 - Precordial pain (3) HTN (hypertension) Hypertension type: essential hypertension Qualified Code(s): I10 - Essential (primary) hypertension
[2018-07-24] MEDS: QUETIAPINE FUMARATE 25 MG TABLET PO SCH (20:43)
[2018-07-24] MEDS: ATORVASTATIN 40 MG TAB PO SCH (20:44)
[2018-07-24] MEDS: FLUTICASONE PROPIONATE NA SPR 16 GM BTL SCH (20:44)
[2018-07-25 05:18] LABS: Hematocrit (blood only) 38.1 % (42-52); Mean Corpuscular Hgb Conc 31.5 g/dL (32-36); Mean Corpuscular Volume 81.4 fL (80-100); Mean Platelet Volume 11.5 fL (7.4-10.4); Platelet Count 178 K/uL (130-400); RDW Coefficient of Variation 17.7 % (11.5-14.5); RDW Standard Deviation 51.8 fL (36.4-46.3); Red Blood Count 4.68 M/uL (4.7-6.1); White Blood Count 7.01 K/uL (4.8-10.8)
[2018-07-25 05:34] LABS: Calcium 8.1 mg/dl (8.5-10.1); Creatinine Clr Calc Pharmacy 62.1 ml/min; Est GFR (African American) 61.3; Est GFR (Non-African American) 52.9; Potassium 3.6 mmol/L (3.5-5.1)
[2018-07-25] MEDS: SODIUM CHLORIDE 0.9% 1000ML 1,000 ML IV SCH (05:48)
[2018-07-25] MEDS: METOPROLOL TARTRATE 25 MG TAB PO SCH (07:42)
[2018-07-25] MEDS: AMLODIPINE BESYLATE 5 MG TAB PO SCH (07:42)
[2018-07-25] MEDS: LISINOPRIL 20 MG TAB PO SCH (07:44)
[2018-07-25] MEDS: methIMAzole 5 MG TABLET PO SCH (07:44)
[2018-07-25] MEDS: POTASSIUM CHLORIDE 10 MEQ TABCR PO SCH (08:48)
[2018-07-25] MEDS: ASPIRIN 81 MG ECTAB PO SCH (08:48)
[2018-07-25] MEDS: POLYETHYLENE (MIRALAX) 17 GM PACK PO SCH (08:48)
[2018-07-25] MEDS ORDERED: AMLODIPINE BESYLATE 5 MG TAB PO SCH (09:00)
[2018-07-25] MEDS ORDERED: AMLODIPINE BESYLATE 5 MG TAB PO ONE (11:32)
[2018-07-25] MEDS: DOCUSATE SODIUM/SENNA 50/8.6MG TAB PO SCH (16:24)
[2018-07-26] MEDS ORDERED: AMLODIPINE BESYLATE 5 MG TAB PO SCH (09:00)
--- NOTE | 2018-07-30 13:24 | Discharge Summary ---
Date of Service July 30, 2018 Admission HPI Per Admitting Provider 73-year-old male who was sent to the ED by cardiology office for evaluation of chest pain and EKG changes. Patient was recently admitted to [facility] 07/09 through 07/11 for chest pain and uncontrolled blood pressure. During that admission, patient had an unremarkable workup and symptoms were felt to be due to uncontrolled blood pressure. His lisinopril was increased from 5 mg daily to 10 mg daily during that admission. Patient reports that 2 nights ago he was awoken around 3 AM with severe left-sided chest pain and headache. He has been checking his blood pressure at home and reports it has been elevated. He saw his PCP in follow-up yesterday who noted increased BP and increase his lisinopril to 20 mg daily. He saw cardiology in follow-up today. He reported his symptoms, and an EKG was obtained demonstrating new T wave inversions in the inferior and lateral leads. He was sent to the ER for further evaluation. Patient reports he has had a persistent left-sided chest pain that he describes as a dull ache. It is not with exertion. He denies any associated shortness of breath, diaphoresis, nausea, lightheadedness, dizziness, syncopal events, radiation of the pain into the jaw, neck, shoulder, arm. No fevers chills. He denies urinary symptoms. In the ED, initial troponin is negative and EKG demonstrates improvement in the T wave inversions that were noted earlier. For EMS, patient received aspirin and nitroglycerin. In the ED, nitroglycerin paste was applied. Patient does not note any change in the mild chest discomfort. Admission Exam Per Admitting Provider WD/WN, vitals as above Eyes: PERRL, conjunctivae normal, anicteric sclerae ENMT: external ear and nose normal, oropharynx normal Respiratory: normal respiratory effort, lungs clear to auscultation Cardiovascular: Rate/Rhythm: regular rate and regular rhythm Vessels: normal peripheral pulses Extremities: no edema Gastrointestinal (Abdomen): normal bowel sounds, soft, nontender, no hepatosplenomegaly Musculoskeletal: no cyanosis or clubbing, extremities motor strength 5/5 Skin: no rashes, warm and dry Neurologic: PERRL, EOMI, accommodation nl, no face palsy, no dysarthria Psychiatric: A+Ox3, euthymic affect Principal Diagnosis chest pain-resolved uncontrolled hypertension Discharge Exam CONSTITUTIONAL: WNWD, vitals as above, generally well-appearing EYES: normal conjuctivae, no scleral icterus ENT: MMM RESPIRATORY: clear to auscultation bilaterally, no crackles, rales or wheezes, normal respiratory effort CARDIOVASCULAR: regular rate and rhythm, S1 and 2 heard without murmurs, gallops or rubs, no JVD, no peripheral edema GASTROINTESTINAL: normal bowel sounds, soft, nontender, nondistended MUSCULOSKELETAL: strength 5/5 throughout, head is normocephalic and atraumatic SKIN: warm and dry NEUROLOGIC: CN 2-12 grossly intact, normal cognition, normal speech, no gross focal deficits. PSYCHIATRIC: alert cooperative and oriented to person, place and time. Discharge Data Allergies Allergy/AdvReac Type Severity Reaction Status Date / Time No Known Allergies Allergy Unverified 07/23/18 11:21 Consultations 07/23/18 11:46 ED Decision to Admit Stat 07/23/18 14:36 Consult Cardiology Routine Procedures Performed Operation Date: 07/24/18 11:00 Actual Procedures p Cath, Coronaries ONLY (no LV) - Cesar De Oliveira MD s Cineradiography w/Routine Exam - Cesar De Oliveira MD Ordered Studies 07/24/18 07:50 CL Cath Imgs for PACS use only Routine Hospital Course (1) Chest pain: (2) HTN (hypertension): (3) Atrial fibrillation: (4) Hyperthyroidism: 73-year-old man presented to the ER with reports of chest pressure. He was referred from his cardiology office after reporting intermittent chest pain beginning the day prior to arrival. EKG changes were seen on outpatient EKG, including T wave inversions and ST depressions in the inferior and lateral leads.. He received nitro and aspirin per EMS prior to arrival. Repeat EKG in the ER did not show these changes. On arrival he was hemodynamically stable and afebrile oxygenating well on room air. Lab work was unremarkable. Troponin was negative, lipase was negative, CBC, BMP and liver panel were all normal. Chest x-ray revealed cardiomegaly with volume overload with no xuan pulmonary edema. Findings were similar to prior exam. INR was elevated consistent with Coumadin use. He was admitted to the hospitalist service and cardiology was consulted. With 2 episodes of heavy chest pressure and dynamic EKG changes, cardiology sent him for diagnostic cardiac catheterization. Dynamic EKG changes were considered to possibly be caused by the bradycardia and hypertension seen. Amiodarone was discontinued and metoprolol dose was decreased in setting of bradycardia. An echocardiogram revealed normal left ventricular wall motion, ejection fraction 60-65%, bioprosthetic aortic valve, bioprosthetic mitral valve, no pericardial effusion. On 07/24/18 a cardiac catheterization was performed revealing nonobstructive cardiac disease. Continued medical therapy was recommended and the patient was returned to the PCU. He recovered overnight and continue to remain hemodynamically stable. Coumadin was restarted once cleared by cardiology. He did not have any adverse events on telemetry during this hospitalization and remained HemeNatal he was discharged in stable condition, and amiodarone was permanently discontinued. This was thought to be aggravating bradycardia and recent hyperthyroid state. After review with endocrinology, his methimazole was reduced based on recent thyroid function test as an outpatient. Repeat thyroid tests were recommended in 2 weeks time. He was discharged in stable condition with close primary care follow-up recommended. Total Time Total Time Spent Total Time Spent (In Minutes): 60 Total Time Includes: Examination of the Patient, Discharge Planning, Medication Reconciliation and Communication With Other Providers Discharge Plan Discharge Items Patient Disposition: Home - Self-Care Reason For Visit: CHEST PAIN, EKG CHANGES Discharge Diagnosis: chest pain-resolved uncontrolled hypertension Condition: Good Discharge Goals: Improve disease control Activity: Resume your previous activity Non-emergency contact: Primary Care Provider Call non-emergency contact if: you have any medication questions, your symptoms worsen, your pain is not controlled and you have a fever Follow-up/Referrals: Emigdio Lao MD [Primary Care Provider] - Diet: Heart Healthy Addtl Provider Instructions: Please take all medications as instructed on discharge list below. It is recommended that you follow-up with Dr. Griffith within one week of discharge. You are being sent home with an increased amount of blood pressure medication and may need labwork in about two weeks. This can be ordered through Dr. Griffith's office. Your methimazole has been reduced based on recent thyroid function tests as an outpatient. It is recommended that you have repeat bloodwork (thyroid function tests) in two weeks time. Again, this can be ordered through Dr. Griffith. It was a pleasure taking care of you! Please call if you have any questions or problems. You can reach a [facility] hospitalist on duty at [facility] 24 hours a day by calling [phone]. Take care of yourself. Miladys Rowe DO [facility] Hospitalist Prescriptions: New metoprolol tartrate 25 mg Tablet 25 mg PO BID 30 Days Qty: 60 RF: 1 lisinopril 40 mg tablet 40 mg PO DAILY Qty: 30 RF: 0 amlodipine [Norvasc] 10 mg tablet 10 mg PO DAILY Qty: 30 RF: 0 methimazole 5 mg Tablet 5 mg PO QAM Qty: 30 RF: 1 Continue amoxicillin 500 mg capsule 4 cap PO UD RF: 0 furosemide 40 mg tablet 40 mg PO QAM RF: 0 atorvastatin 40 mg tablet 40 mg PO HS RF: 0 sennosides-docusate sodium 8.6-50 mg tablet 1 tab PO DAILY@1500 RF: 0 potassium chloride 20 mEq tablet,ER particles/crystals 10 mg PO BID RF: 0 fluticasone 50 mcg/actuation spray,suspension 2 spray Intranasal HS RF: 0 quetiapine 50 mg tablet 50 mg PO HS RF: 0 warfarin 3 mg tablet 3 mg PO MOFR@1600 RF: 0 warfarin 3 mg tablet 1.5 mg PO SUTUWETHSA@1600 RF: 0 fluocinolone 0.01 % oil 1 applic topical DAILY PRN (Reason: Other) RF: 0 polyethylene glycol 3350 17 gram Powder In Packet 1 packet PO QAM RF: 0 aspirin 81 mg Tablet,Delayed Release (Dr/Ec) 81 mg PO BID RF: 0 Discontinued metoprolol tartrate 100 mg tablet 50 mg PO BID RF: 0 amiodarone 200 mg tablet 200 mg PO DAILY@1500 RF: 0 methimazole 10 mg tablet 10 mg PO QAM RF: 0 lisinopril [Zestril] 10 mg tablet 20 mg PO QAM RF: 0 Visit Report Forms: My [facility] Portal Stand-Alone Forms: My [facility] Discharge Orders: Discharge Order (Routine); Ordered 07/25/18 Ordered By: Miladys Rowe Admission Data Admit Date/Time: 07/23/18 12:27 Attending Provider: Miladys Rowe Admit Provider: Mg Ralph Primary Care Provider: Emigdio Lao Other Providers: Mg Ralph ; Cesar De Oliveira Service: Telemetry Other Interventions: Discharge Summary Assessment (RN) Last Done: 07/25/18 16:16 DC Date/Time DO NOT enter until pt leaves facility: 07/25/18 17:30
--- NOTE | 2018-08-07 04:54 | Coding Query ---
CHEST PAIN To promote full compliance with coding requirements relating to patient care physician participation is requested in all cases of loading unit operator crimping uncertainty. Please assist us with the question(s) below: Please list a more specific chest pain diagnosis or cause of chest pain if known by placing an X within the parenthesis (x): (x ) Atypical Chest Pain ( ) Chest Wall Pain ( ) Midsternal Chest Pain ( ) Musculoskeletal Chest Pain ( ) Pleuritic Chest Pain ( ) Substernal Chest Pain ( ) Costochondral Chest Pain ( ) Other (please Specify) ( ) Unable to Determine Thank you MARIA ISABEL Cates [facility]
== END 2018-07-25 17:30 | disposition home or self-care (01) | DRG 287 ==
LOC: ED 09:35 → 2S 12:27
PROC: CLB.CCO (2018-07-24 11:00)

== ENCOUNTER 2019-06-29 11:43 | Inpatient (IN) ==
[2019-06-29 12:55] LABS: Hematocrit (blood only) 41.5 % (42-52); Hemoglobin 13.9 g/dL (14.0-18.0); Mean Corpuscular Hemoglobin 29.8 pg (25-34); Mean Corpuscular Hgb Conc 33.5 g/dL (32-36); Mean Corpuscular Volume 88.9 fL (80-100); Mean Platelet Volume 11.1 fL (7.4-10.4); Platelet Count 171 K/uL (130-400); RDW Coefficient of Variation 14.8 % (11.5-14.5); RDW Standard Deviation 47.7 fL (36.4-46.3); Red Blood Count 4.67 M/uL (4.7-6.1); White Blood Count 6.47 K/uL (4.8-10.8)
[2019-06-29 13:06] LABS: INR 1.9 (0.9-1.1); Partial Thromboplastin Ratio 1.2; Partial Thromboplastin Time 33.5 Seconds (21.0-31.0); Prothrombin Time 18.9 Seconds (9.0-12.0)
[2019-06-29 13:11] LABS: Albumin Level 3.7 gm/dl (3.4-5.0); Creatinine Clr Calc Pharmacy 77.1 ml/min; Est GFR (African American) 75.2; Est GFR (Non-African American) 64.9; Potassium 3.6 mmol/L (3.5-5.1)
[2019-06-29] MEDS ORDERED: SODIUM CHLORIDE 0.9% 1000ML 1,000 ML IV ONE (13:12)
[2019-06-29 13:15] LABS: Albumin Globulin Ratio 1.1 (0.9-2); Bilirubin,Total 0.6 mg/dl (0.2-1); Globulin 3.4 gm/dl (2.5-4.0); Total Protein 7.1 gm/dl (6.4-8.2)
[2019-06-29 13:33] LABS: Creatine Kinase 170 U/L (39-308); Creatine Kinase MB 3.4 ng/ml (0.5-3.6); Troponin I < 0.015 ng/ml (0-0.045)
--- NOTE | 2019-06-29 13:48 | History & Physical Report ---
Date of Service June 29, 2019 Assessment & Plan (1) Hematochezia: H&H stable despite bleeding for for last 5 days. Will repeat H&H once this evening. The patient is hemodynamically stable. Overnight prep for colonoscopy in morning per GI. (2) Paroxysmal atrial fibrillation: Status post Maze procedure. Continue metoprolol, hold Coumadin. Monitor on telemetry. (3) Chronic anticoagulation: Hold Coumadin without reversal today. (4) H/O aortic valve replacement: The patient has a history of bioprosthetic aortic valve and mitral valve replacements with aortic root/ascending aortic repair in 2015. He had a stable echo in July 2018. The patient has atrial fibrillation with no history of CVA. It is acceptable to hold Coumadin for procedure without bridging therapy. INR currently 1.9 and will allow to trend down. If patient will remain off Coumadin for longer than time allotted to perform the procedure, will need to discuss this further with cardiology. (5) H/O mitral valve replacement: Plan as above. (6) CAD (coronary artery disease): Stable, continue medical management with lisinopril, metoprolol. Aspirin being held as above. (7) DVT prophylaxis: SCDs, chemoprophylaxis contraindicated in setting of active bleeding. Full code as discussed with patient on admission. Disposition-to medical telemetry for overnight monitoring. Plan for patient to go home when medically stable. Miladys Rowe DO [facility] Hospitalist ADDENDUM: repeat evening H/H was normal. History of Present Illness Chief Complaint: Rectal bleeding Primary Care Provider: Emigdio Lao MD 74-year-old man presents with hematochezia since (5 days ago). He reports having bright red blood that is sometimes dark without clots approximately 2-3 times a day. He denies any lightheadedness or dizziness. He denies any nausea or vomiting and has been tolerating p.o. without issue with his last meal being breakfast. He last had 2 BMs this morning, one of which had no solid material but only bright red blood seen in the toilet. He denies any abdominal pain but does report some right flank tightness that occurs just before having a bowel movement, improving/resolving after he goes. This has been present since , also. He denies any palpitations, chest pain, abdominal pain, UTI symptoms, will weight gain or any other symptoms at this time. He recently underwent an upper endoscopy on 01/26/2019 which was normal except for a benign adenoma that was removed. On 11/05/2017 he had some hematochezia and underwent a flexible sigmoidoscopy at that time revealing hemorrhoids and a 2 mm rectal polyp which was removed. There was also a visible vessel at the dentate line that was oozing at that time and was clipped, felt likely related to prior hemorrhoid surgery. Since that time he denies any issues with bleeding. GI was consulted and is planning a colonoscopy tomorrow. He is on ASA 81 and coumadin with an INR 1.9. Allergies Allergy/AdvReac Type Severity Reaction Status Date / Time No Known Allergies Allergy Verified 06/29/19 14:10 Home Medications Home Medications Medication Instructions Recorded Confirmed Type atorvastatin 40 mg PO HS 07/09/18 06/29/19 History fluticasone propionate 1 spray INTRANASAL BID 07/09/18 06/29/19 History furosemide 40 mg PO QAM 07/09/18 06/29/19 History polyethylene glycol 3350 1 packet PO QAM 07/09/18 06/29/19 History potassium chloride 10 mg PO BID 07/09/18 06/29/19 History quetiapine 50 mg PO HS 07/09/18 06/29/19 History sennosides-docusate sodium 1 tab PO QAM 07/09/18 06/29/19 History warfarin 1.5 - 3 mg PO UD 07/09/18 06/29/19 History aspirin 81 mg PO BID 07/23/18 06/29/19 History levothyroxine 25 mcg PO QAM 03/02/19 06/29/19 History metoprolol tartrate 25 mg PO BID 03/02/19 06/29/19 History oxycodone 5 mg PO Q4 PRN 03/02/19 06/29/19 History amlodipine 5 mg PO QDL 04/16/19 06/29/19 History lisinopril 40 mg PO QDL 04/16/19 06/29/19 History fluocinolone acetonide oil 0.01 % OTIC (EAR) DAILY PRN 06/29/19 06/29/19 History Past Med/Surg History Medical History Aortic root aneurysm (Chronic) "s/p repair" Atrial fibrillation (Chronic) BPH (benign prostatic hyperplasia) CAD (coronary artery disease) (Chronic) "cath 2016 - mild, non obstructive" Chronic anticoagulation (Chronic) GERD (gastroesophageal reflux disease) (Chronic) Hearing deficit HLD (hyperlipidemia) (Chronic) HTN (hypertension) (Chronic) Hypothyroidism ICH (intracerebral hemorrhage) (Resolved) 2012 (PT CAN NOT REMEMBER DETAILS) Surgical History H/O aortic valve replacement (Chronic) 2 YEARS AGO [place] H/O arthroscopy of knee (Chronic) H/O hemorrhoidectomy (Chronic) H/O knee surgery RT H/O maze procedure (Chronic) History of colonoscopy History of esophagogastroduodenoscopy (EGD) History of right cataract extraction History of thyroidectomy, subtotal THYROID NODULE History of tooth extraction Hx of hemorrhoidectomy S/P TURP (Chronic) Family History Father Hypertension Mother Heart disease Diabetes Social History Preferred Language: Sudanese Communication Ability: Effective 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 Beliefs That Will Affect Care: None marital status: Life Partner Current Living Situation: Significant Other Other Information That Helps Us Care for You: No Feels Safe at Home: Yes Safety Concerns: Feels Safe At This Time Smoking Status: Former smoker Tobacco Type: cigarettes ; Do You Dip or Chew Tobacco: No ; Smoking End Date: ; Second Hand Exposure: No ; Tobacco Cessation Education Requested by Patient: No Hx Alcohol Use: Yes Alcohol type: beer Hx Substance Use: No Review of Systems Review of Systems: All systems reviewed & are unremarkable except as noted in HPI & below Physical Exam Physical Exam: CONSTITUTIONAL: WNWD, vitals as above, generally well- appearing EYES: PERRL, normal conjunctivae, no scleral icterus ENT: MMM RESPIRATORY: clear to auscultation bilaterally, no crackles, rales or wheezes, normal respiratory effort CARDIOVASCULAR: regular rate and rhythm, S1 and 2 heard without murmurs, gallops or rubs, no JVD, no peripheral edema GASTROINTESTINAL: soft, nontender, nondistended, no guarding MUSCULOSKELETAL: strength 5/5 throughout, head is normocephalic and atraumatic SKIN: warm and dry : exam deferred NEUROLOGIC: CN 2-12 grossly intact, no sensory deficit, normal cognition, normal speech, no tremor, no gross focal deficits. PSYCHIATRIC: alert cooperative and oriented to person, place and time. Results & Data Vital Signs (Past 12 Hours) Vital Signs Pulse Pulse Resp BP BP Pulse Ox 06/29/19 13:00 76 19 137/87 96 06/29/19 11:51 77 16 184/132 H 94 Laboratory Results Short CBC 06/29/19 Range/Units 12:45 WBC 6.47 (4.8-10.8) K/uL Hgb 13.9 L (14.0-18.0) g/dL Hct 41.5 L (42-52) % Plt Count 171 (130-400) K/uL BMP 06/29/19 12:45 Sodium 141 Potassium 3.6 Chloride 107 Carbon Dioxide 28 BUN 14 Creatinine 1.10 Glucose 78 Calcium 9.0 Cardiac Enzymes 06/29/19 Range/Units 13:11 Total Creatine Kinase 170 (39-308) U/L CK-MB (CK-2) 3.4 (0.5-3.6) ng/ml Troponin I < 0.015 (0-0.045) ng/ml Liver Function 06/29/19 Range/Units 12:45 Total Bilirubin 0.6 (0.2-1) mg/dl AST 16 (15-37) U/L ALT 22 (12-78) U/L Alkaline Phosphatase 100 (45-117) U/L Albumin 3.7 (3.4-5.0) gm/dl Code Status & VTE Plan Code Status Full VTE Prophylaxis Plan VTE Prophylaxis will be ordered: Yes
--- NOTE | 2019-06-29 14:43 | Gastrointestinal Consultation ---
Date of Consultation June 29, 2019 Assessment & Plan (1) Rectal bleeding: Pt is a 74 y/o male presented with painless rectal bleeding in setting of Coumadin use for Afib, aortic valve replacement. H/H stable 13/41, INR 1/9. Last year he had similar symptoms of rectal bleeding post hemorrhoidectomy, noted to have oozing vessel at dentate line that was clipped when flex sigmoidscopy was done. - CL diet today, NPO after midnight - Bowel prep ordered, will plan for colonoscopy by Dr. Jaime tomorrow - Monitor H/H and transfuse prn Supervising Physician Co-Signing Physician Notes I have performed a history and physical examination of this patient and reviewed the electronic medical record. Specifically, on physical examination abdomen is soft and non tender. I have discussed the case with SHAHIDA Nguyen. The above note reflects my findings, conclusions, and recommendations. Asaf Jaime MD History of Present Illness Reason for Consultation: Rectal Bleeding Requesting Physician: Dr. Miladys Rowe Attending Physician: Dr. Asaf Jaime History of Present Illness Pt is a 74 y/o male who presented to ED w c/o painless rectal bleeding since last . He denies any associated fever, chills, abd pain, rectal pain/burning. Said has urges to defecate and passing some stools w bright red blood but sometimes it's just blood. VS stable, H/H 13.9/41, BUN 14. He is on Coumadin for hx of Afib,aortic valve replacement, INR was 1.9. He did have this similar episode of rectal bleeding last year after hemorrhoidectomy surgery. He had flex sigmoidscopy by Dr. Parks 10/2017, noted to have visible vessel at dentate line that's oozing and clipped. Allergies Allergy/AdvReac Type Severity Reaction Status Date / Time No Known Allergies Allergy Verified 06/29/19 14:10 Home Medications Home Medications Medication Instructions Recorded Confirmed Type atorvastatin 40 mg PO HS 07/09/18 06/29/19 History fluticasone propionate 1 spray INTRANASAL BID 07/09/18 06/29/19 History furosemide 40 mg PO QAM 07/09/18 06/29/19 History polyethylene glycol 3350 1 packet PO QAM 07/09/18 06/29/19 History potassium chloride 10 mg PO BID 07/09/18 06/29/19 History quetiapine 50 mg PO HS 07/09/18 06/29/19 History sennosides-docusate sodium 1 tab PO QAM 07/09/18 06/29/19 History warfarin 1.5 - 3 mg PO UD 07/09/18 06/29/19 History aspirin 81 mg PO BID 07/23/18 06/29/19 History levothyroxine 25 mcg PO QAM 03/02/19 06/29/19 History metoprolol tartrate 25 mg PO BID 03/02/19 06/29/19 History oxycodone 5 mg PO Q4 PRN 03/02/19 06/29/19 History amlodipine 5 mg PO QDL 04/16/19 06/29/19 History lisinopril 40 mg PO QDL 04/16/19 06/29/19 History fluocinolone acetonide oil 0.01 % OTIC (EAR) DAILY PRN 06/29/19 06/29/19 History Patient History Medical History Aortic root aneurysm (Chronic) "s/p repair" Atrial fibrillation (Chronic) BPH (benign prostatic hyperplasia) CAD (coronary artery disease) (Chronic) "cath 2016 - mild, non obstructive" Chronic anticoagulation (Chronic) GERD (gastroesophageal reflux disease) (Chronic) Hearing deficit HLD (hyperlipidemia) (Chronic) HTN (hypertension) (Chronic) Hypothyroidism ICH (intracerebral hemorrhage) (Resolved) 2012 (PT CAN NOT REMEMBER DETAILS) Surgical History H/O aortic valve replacement (Chronic) 2 YEARS AGO [place] H/O arthroscopy of knee (Chronic) H/O hemorrhoidectomy (Chronic) H/O knee surgery RT H/O maze procedure (Chronic) History of colonoscopy History of esophagogastroduodenoscopy (EGD) History of right cataract extraction History of thyroidectomy, subtotal THYROID NODULE History of tooth extraction Hx of hemorrhoidectomy S/P TURP (Chronic) Family History Father Hypertension Mother Heart disease Diabetes Social History Preferred Language: Croatian Communication Ability: Effective 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 Beliefs That Will Affect Care: None marital status: Life Partner Current Living Situation: Significant Other Other Information That Helps Us Care for You: No Feels Safe at Home: Yes Safety Concerns: Feels Safe At This Time Smoking Status: Former smoker Tobacco Type: cigarettes ; Do You Dip or Chew Tobacco: No ; Smoking End Date: ; Second Hand Exposure: No ; Tobacco Cessation Education Requested by Patient: No Hx Alcohol Use: Yes Alcohol type: beer Hx Substance Use: No Review of Systems Review of Systems: All systems reviewed & are unremarkable except as noted in HPI & below Physical Exam Constitutional: WD/WN, vitals as above well groomed, cooperative and comfortable Eyes: PERRL, conjunctivae normal, anicteric sclerae ENMT: external ear and nose normal, oropharynx normal Respiratory: normal respiratory effort, lungs clear to auscultation Cardiovascular: RRR, no murmur, no edema Gastrointestinal (Abdomen): normal bowel sounds, soft, nontender, no hepatosplenomegaly Skin: no rashes, warm and dry no jaundice Psychiatric: A+Ox3, euthymic affect Lymphatic: no lymphedema Results & Data Vital Signs (Past 12 Hours) Vital Signs Pulse Pulse Resp BP BP Pulse Ox 06/29/19 14:00 72 19 138/79 98 06/29/19 13:00 76 19 137/87 96 06/29/19 11:51 77 16 184/132 H 94
[2019-06-29] MEDS ORDERED: PNEUMOCOCCAL Polysaccharide Vaccine 25mcg/0.5mL vial/Syr IM ONE (15:30)
[2019-06-29 16:24] LABS: INR 1.9 (0.9-1.1)
[2019-06-29] MEDS ORDERED: OXYCODONE HCL IR 5 MG TAB (IMMEDIATE RELEASE) PO PRN (16:38)
[2019-06-29] MEDS ORDERED: POLYETHYLENE (MIRALAX) 17 GM PACK PO SCH ×2 (17:00→21:00)
[2019-06-29] MEDS ORDERED: AMLODIPINE BESYLATE 5 MG TAB PO ONE (17:26)
[2019-06-29] MEDS ORDERED: lisinopriL 40 MG TAB PO ONE (17:26)
[2019-06-29] MEDS ORDERED: bisacodyL 5 MG TABEC PO ONE (17:30)
--- NOTE | 2019-06-29 19:25 | Emergency Department Note ---
Entered by Maggi Craft acting as a scribe for Adam García MD History of Present Illness General Chief complaint: Rectal Bleed Stated complaint: RECTAL BLEEDING Time Seen by Provider: 06/29/19 12:56 Source: patient History of Present Illness Onset (ago): day(s) 5 Location: buttocks (rectal) Pain Consistency: + other (episode) Maximum Pain Intensity: 0 Quality: + other (bleeding) Associated symptoms: + denies other symptoms (abdominal pain) The patient is a 74 year old male who presents to the Emergency Room with complaints of an episode of rectal bleeding starting 5 days ago. The patient states that he has a history of rectal bleeding. He states that he has been here to the ED for it several months ago. He reports that he had some surgery done and it got better, but 5 days ago it started again. The patient states that when he feels like he has to move his bowels, he moves them and only a small amount of stool comes out, but a lot of blood does. He reports that this happens 2-3 times a day. The patient notes that he is on Coumadin for his heart surgery that was done in [facility]. He notes he has had a colonoscopy in the past by [facility]. The patient denies abdominal pain. Home Medications Home Medications Medication Instructions Recorded Confirmed Type atorvastatin 40 mg PO HS 07/09/18 06/29/19 History fluticasone propionate 1 spray INTRANASAL BID 07/09/18 06/29/19 History furosemide 40 mg PO QAM 07/09/18 06/29/19 History polyethylene glycol 3350 1 packet PO QAM 07/09/18 06/29/19 History potassium chloride 10 mg PO BID 07/09/18 06/29/19 History quetiapine 50 mg PO HS 07/09/18 06/29/19 History sennosides-docusate sodium 1 tab PO QAM 07/09/18 06/29/19 History warfarin 1.5 - 3 mg PO UD 07/09/18 06/29/19 History aspirin 81 mg PO BID 07/23/18 06/29/19 History levothyroxine 25 mcg PO QAM 03/02/19 06/29/19 History metoprolol tartrate 25 mg PO BID 03/02/19 06/29/19 History oxycodone 5 mg PO Q4 PRN 03/02/19 06/29/19 History amlodipine 5 mg PO QDL 04/16/19 06/29/19 History lisinopril 40 mg PO QDL 04/16/19 06/29/19 History fluocinolone acetonide oil 0.01 % OTIC (EAR) DAILY PRN 06/29/19 06/29/19 History Allergies Allergy/AdvReac Type Severity Reaction Status Date / Time No Known Allergies Allergy Verified 06/29/19 14:10 Past Med/Surg History Medical History Aortic root aneurysm (Chronic) "s/p repair" Atrial fibrillation (Chronic) BPH (benign prostatic hyperplasia) CAD (coronary artery disease) (Chronic) "cath 2016 - mild, non obstructive" Chronic anticoagulation (Chronic) GERD (gastroesophageal reflux disease) (Chronic) Hearing deficit HLD (hyperlipidemia) (Chronic) HTN (hypertension) (Chronic) Hypothyroidism ICH (intracerebral hemorrhage) (Resolved) 2012 (PT CAN NOT REMEMBER DETAILS) Surgical History H/O aortic valve replacement (Chronic) 2 YEARS AGO [place] H/O arthroscopy of knee (Chronic) H/O hemorrhoidectomy (Chronic) H/O knee surgery RT H/O maze procedure (Chronic) History of colonoscopy History of esophagogastroduodenoscopy (EGD) History of right cataract extraction History of thyroidectomy, subtotal THYROID NODULE History of tooth extraction Hx of hemorrhoidectomy S/P TURP (Chronic) Family History Father Hypertension Mother Heart disease Diabetes Social History Preferred Language: Guinean Communication Ability: Effective 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 and A total of 10 systems reviewed and were otherwise negative Physical Exam Vital Signs Vital Signs - 24 hr 06/29/19 11:51 06/29/19 13:00 06/29/19 14:00 Pulse Rate 77 Pulse Rate [Apical] 76 72 Pulse Rhythm Regular Pulse Rhythm [Apical] Regular Regular Pulse Strength Normal Respiratory Rate 16 19 19 Respiratory Effort / Characteristics Non-Labored Non-Labored Spontaneous Non-Labored Spontaneous Respiratory Depth Normal Normal Normal Respiratory Pattern Regular Regular Regular Blood Pressure 184/132 H Blood Pressure [Left Arm] 137/87 138/79 Blood Pressure Mean 149 Blood Pressure Mean [Left Arm] 103 98 Blood Pressure Position Sitting Pulse Oximetry 94 96 98 Oxygen Delivery Method Room Air Room Air Room Air Sepsis Recent Fever Within 48 Hours No Sepsis Action Taken by Nursing No Action Required GENERAL: Awake, alert, well-appearing, in no acute distress HENT: Normocephalic, atraumatic. Oropharynx unremarkable. EYES: Normal conjunctiva. Sclera non-icteric. NECK: Supple. No nuchal rigidity. FROM. No JVD. RESPIRATORY: Clear to auscultation. CARDIAC: Regular rate, normal rhythm. Extremities warm and well perfused. Pulses equal. ABDOMEN: Soft, non-distended. No tenderness to palpation. No rebound or guarding. No masses. RECTAL: Dark red blood on exam. Heme positive. MUSCULOSKELETAL: Chest examination reveals no tenderness. The back is symmetrical on inspection without obvious abnormality. There is no CVA t enderness to palpation. No joint edema. LOWER EXTREMITIES: Calves are equal size bilaterally and non-tender. No edema. No discoloration. NEURO: Normal sensorium. No sensory or motor deficits noted. SKIN: No rash or jaundice noted. Course Course 1305: Past medical records reviewed. The patient was evaluated in room B2. A complete history and physical exam was performed. 1314: I discussed the patient's case with Dr. Carmella KAUR. They recommend admission since he is on Coumadin and they will determine how to further evaluate the patient. 1335: I discussed the patients case with Dr. Rachele Crews Hospitalist. She will evaluate the patient for further management. 1339: I revaluated the patient and updated him on his test results. I discussed the treatment plan with him. He verbally agrees and understands. Administered Medications Discontinued Medications Amlodipine Besylate (Norvasc) 5 mg PO NOW ONE Stop: 06/29/19 17:27 Last Admin: 06/29/19 17:59 Dose: 5 mg Documented by: [id number] Bisacodyl (Dulcolax) 20 mg PO ONE ONE Stop: 06/29/19 17:31 Last Admin: 06/29/19 17:19 Dose: 20 mg Documented by: [id number] Sodium Chloride (Nss 1000ml) 1,000 mls @ 999 mls/hr IV .Q1H1M ONE Stop: 06/29/19 14:12 Last Infusion: 06/29/19 14:20 Dose: 0 mls/hr Documented by: [id number] Admin: 06/29/19 13:19 Dose: 999 mls/hr Documented by: [id number] Lisinopril (Zestril) 40 mg PO ONE ONE Stop: 06/29/19 17:27 Last Admin: 06/29/19 18:00 Dose: 40 mg Documented by: [id number] Pneumococcal Polyvalent Vaccine (Pneumovax-23) 25 mcg IM .ONCE ONE Stop: 06/29/19 15:31 Last Admin: 06/29/19 16:24 Dose: Not Given Documented by: [id number] Polyethylene Glycol (Miralax Powder Packet) 119 gm PO TODAY@1700 ZACHERY Stop: 06/29/19 17:01 Last Admin: 06/29/19 17:19 Dose: 119 gm Documented by: [id number] Medical Decision Making Differential Diagnosis Differential diagnosis includes etiologies such as diverticulosis, AVM, coagulopathy, colitis, inflammatory bowel disease, malignancy, [place] tear, esophagitis, peptic ulcer disease, variceal bleed, gastritis, epistaxis, fissure, hemorrhoids, as well as others were entertained. Medical Records Attestation: I reviewed the patient's medical records. Home Medications Current Medication List: was personally reviewed by me Laboratory Data Attestation: I reviewed the patient's lab results. Result diagrams: 06/29/19 12:45 06/29/19 12:45 Lab Results 06/29/19 06/29/19 06/29/19 Range/Units 12:45 12:45 12:45 WBC 6.47 (4.8-10.8) K/uL RBC 4.67 L (4.7-6.1) M/uL Hgb 13.9 L (14.0-18.0) g/dL Hct 41.5 L (42-52) % MCV 88.9 (80-100) fL MCH 29.8 (25-34) pg MCHC 33.5 (32-36) g/dL RDW Std Deviation 47.7 H (36.4-46.3) fL RDW Coeff of Kathy 14.8 H (11.5-14.5) % Plt Count 171 (130-400) K/uL MPV 11.1 H (7.4-10.4) fL PT 18.9 H (9.0-12.0) Seconds INR 1.9 H (0.9-1.1) APTT 33.5 H (21.0-31.0) Seconds PTT Ratio 1.2 Sodium 141 (136-145) mmol/L Potassium 3.6 (3.5-5.1) mmol/L Chloride 107 (98-107) mmol/L Carbon Dioxide 28 (21-32) mmol/L Anion Gap 5.0 (3-11) BUN 14 (7-18) mg/dl Creatinine 1.10 (0.6-1.4) mg/dl Est Cr Clr Drug Dosing 77.1 ml/min Est GFR ( Amer) 75.2 Est GFR (Non-Af Amer) 64.9 BUN/Creatinine Ratio 13.0 (10-20) Glucose 78 (70-99) mg/dl Calcium 9.0 (8.5-10.1) mg/dl Total Bilirubin 0.6 (0.2-1) mg/dl AST 16 (15-37) U/L ALT 22 (12-78) U/L Alkaline Phosphatase 100 (45-117) U/L Total Creatine Kinase (39-308) U/L CK-MB (CK-2) (0.5-3.6) ng/ml CK/CKMB % Calc (0-3.0) Troponin I (0-0.045) ng/ml Total Protein 7.1 (6.4-8.2) gm/dl Albumin 3.7 (3.4-5.0) gm/dl Globulin 3.4 (2.5-4.0) gm/dl Albumin/Globulin Ratio 1.1 (0.9-2) Blood Type Antibody Screen 06/29/19 06/29/19 Range/Units 13:11 13:18 WBC (4.8-10.8) K/uL RBC (4.7-6.1) M/uL Hgb (14.0-18.0) g/dL Hct (42-52) % MCV (80-100) fL MCH (25-34) pg MCHC (32-36) g/dL RDW Std Deviation (36.4-46.3) fL RDW Coeff of Kathy (11.5-14.5) % Plt Count (130-400) K/uL MPV (7.4-10.4) fL PT (9.0-12.0) Seconds INR (0.9-1.1) APTT (21.0-31.0) Seconds PTT Ratio Sodium (136-145) mmol/L Potassium (3.5-5.1) mmol/L Chloride (98-107) mmol/L Carbon Dioxide (21-32) mmol/L Anion Gap (3-11) BUN (7-18) mg/dl Creatinine (0.6-1.4) mg/dl Est Cr Clr Drug Dosing ml/min Est GFR ( Amer) Est GFR (Non-Af Amer) BUN/Creatinine Ratio (10-20) Glucose (70-99) mg/dl Calcium (8.5-10.1) mg/dl Total Bilirubin (0.2-1) mg/dl AST (15-37) U/L ALT (12-78) U/L Alkaline Phosphatase (45-117) U/L Total Creatine Kinase 170 (39-308) U/L CK-MB (CK-2) 3.4 (0.5-3.6) ng/ml CK/CKMB % Calc 2.0 (0-3.0) Troponin I < 0.015 (0-0.045) ng/ml Total Protein (6.4-8.2) gm/dl Albumin (3.4-5.0) gm/dl Globulin (2.5-4.0) gm/dl Albumin/Globulin Ratio (0.9-2) Blood Type O Positive Antibody Screen NEGATIVE ECG Data Attestation: I personally reviewed and interpreted this ECG as follows: Indication: + other (rectal bleed) Rate (beats per minute): 77 Rhythm: + other (accelerated junctional rhythm) ECG Intervals/blocks: + Prolonged QT ECG ST segments: no ST depression and no ST elevation Comparison ECG Date: from (07/25/2018) Change: the following changes noted (juncitonal rhythm has replaced sinus rhythm) Blood Pressure Blood Pressure Findings: Elevated blood pressure Blood Pressure Disposition: further management by hospitalist MDM Narrative This is a 74-year-old male who has had been having rectal bleeding since . Patient is on Coumadin. I did discuss the case with the gastroenterology team who asked that the patient be admitted to the medicine service. His hemoglobin was found to be 13.9. Patient family were in agreement with the treatment plan. Impression & Plan Rectal bleeding Discharge Plan Visit Data *Final* Discharge Date/Time: 06/29/19 15:00 Chief Complaint: Rectal Bleed Stated Complaint: RECTAL BLEEDING ED Provider: Adam García Problem: Rectal bleeding Patient Disposition: Admitted As Inpatient Discharge Instructions Interventions: ED Discharge Assessment Last Done: 06/29/19 15:00 The scribe's documentation has been prepared under my direction and personally reviewed by me in its entirety. I confirm that the note above accurately reflects all work, treatment, procedures, and medical decision making performed by me.
[2019-06-29 19:26] LABS: Hematocrit (blood only) 42.4 % (42-52); Hemoglobin 14.2 g/dL (14.0-18.0)
[2019-06-29] MEDS ORDERED: QUETIAPINE FUMARATE 25 MG TABLET PO SCH (21:00)
[2019-06-29] MEDS ORDERED: ATORVASTATIN 40 MG TAB PO SCH (21:00)
[2019-06-29] MEDS: FLUTICASONE PROPIONATE NA SPR 16 GM BTL NAE SCH (21:07)
[2019-06-30] MEDS ORDERED: POLYETHYLENE (MIRALAX) 17 GM PACK PO STA (04:13)
[2019-06-30 06:19] LABS: Hematocrit (blood only) 42.2 % (42-52); Mean Corpuscular Hemoglobin 29.5 pg (25-34); Mean Corpuscular Hgb Conc 33.2 g/dL (32-36); Platelet Count 162 K/uL (130-400); RDW Coefficient of Variation 14.8 % (11.5-14.5); RDW Standard Deviation 47.9 fL (36.4-46.3); Red Blood Count 4.74 M/uL (4.7-6.1); White Blood Count 5.46 K/uL (4.8-10.8)
[2019-06-30 06:28] LABS: INR 1.7 (0.9-1.1); Prothrombin Time 17.2 Seconds (9.0-12.0)
[2019-06-30] MEDS ORDERED: LEVOTHYROXINE SODIUM 25 MCG TABLET PO SCH (06:30)
[2019-06-30 06:47] LABS: Calcium 8.1 mg/dl (8.5-10.1); Creatinine Clr Calc Pharmacy 84.7 ml/min; Est GFR (African American) 86.5; Est GFR (Non-African American) 74.6; Potassium 3.2 mmol/L (3.5-5.1)
[2019-06-30] MEDS: METOPROLOL TARTRATE 25 MG TAB PO SCH ×2 (08:32→13:37)
[2019-06-30] MEDS: FLUTICASONE PROPIONATE NA SPR 16 GM BTL NAE SCH (08:33)
--- NOTE | 2019-06-30 09:43 | Gastroenterology Progress Note ---
Date of Service June 30, 2019 Assessment & Plan (1) Rectal bleeding: Pt is a 74 y/o male presented with painless rectal bleeding in setting of Coumadin use for Afib, aortic valve replacement. H/H stable 13/41, INR 1/9. Last year he had similar symptoms of rectal bleeding post hemorrhoidectomy, noted to have oozing vessel at dentate line that was clipped when flex sigmoidscopy was done. He is prepped for colonoscopy eval today. No acute events overnight, H/H remained stable. He continues to pass dark liquid blood per rectum but no stools. Abd exam benign - NPO for colonoscopy eval - Replete K w KCl IV 20meq - Monitor H/H and transfuse prn Supervising Physician Co-Signing Physician Notes I have performed a history and physical examination of this patient and reviewed the electronic medical record. Specifically, on physical examination abdomen is soft and non tender. I have discussed the case with SHAHIDA Nguyen. The above note reflects my findings, conclusions, and recommendations. Asaf Jaime MD Subjective Pt denies any abd pain, n/v, CP, SOB. He completed bowel prep for colonoscopy today, also NPO after midnight. He is passing dark bloody liquid but w/o stools. Noted H/H stable, mild hypokalemia K 3.2, INR 1.7 Review of Systems Review of Systems: All systems reviewed & are unremarkable except as noted in HPI & below Physical Exam Constitutional: WD/WN, vitals as above well groomed, cooperative and comfortable Eyes: PERRL, conjunctivae normal, anicteric sclerae ENMT: external ear and nose normal, oropharynx normal Respiratory: normal respiratory effort, lungs clear to auscultation Cardiovascular: RRR, no murmur, no edema Gastrointestinal (Abdomen): normal bowel sounds, soft, nontender, no hepatosplenomegaly Skin: no rashes, warm and dry no jaundice Psychiatric: A+Ox3, euthymic affect Lymphatic: no lymphedema Results & Data Vital Signs (Past 12 Hours) Vital Signs Temp Pulse Pulse Resp BP BP Pulse Ox 06/30/19 07:33 36.4 C L 75 17 138/85 98 06/30/19 04:00 36.6 C 90 20 152/95 H 95 06/29/19 23:00 36.5 C 71 20 146/86 H 92
[2019-06-30] MEDS: POTASSIUM CHLORIDE / WTR 10 MEQ/100 ML PLCT IV SCH ×2 (09:49→11:04)
[2019-06-30] MEDS ORDERED: AMLODIPINE BESYLATE 5 MG TAB PO SCH (11:30)
[2019-06-30] MEDS ORDERED: lisinopriL 40 MG TAB PO SCH (11:30)
[2019-06-30] MEDS ORDERED: PROPOFOL IV EMULSION 10 MG/ML 20 ML VIAL IV ONE ×2 (11:54→12:42)
[2019-06-30] MEDS ORDERED: LIDOCAINE HCL 2% 2 ML VIAL/AMP(20MG/ML) INFIL ONE (11:54)
--- NOTE | 2019-06-30 12:01 | Anesthesiology Consultation ---
Date of Service June 30, 2019 Assessment & Plan Chart Review Chart Review: Acceptable Risk for Surgery and Patient NOT seen in Pre Admission Testing Consults Requested none History Surgery Operation Date: 06/30/19 15:30 Proposed Procedures p Colonoscopy Dr Jaime - Asaf Jaime MD Height/Weight Height: 6 ft Weight: 117 kg Allergies Allergy/AdvReac Type Severity Reaction Status Date / Time No Known Allergies Allergy Verified 06/29/19 14:10 Medications Home Medications Medication Instructions Recorded Confirmed Last Taken atorvastatin 40 mg PO HS 07/09/18 06/29/19 06/28/19 fluticasone propionate 1 spray INTRANASAL BID 07/09/18 06/29/19 06/29/19 furosemide 40 mg PO QAM 07/09/18 06/29/19 06/29/19 polyethylene glycol 3350 1 packet PO QAM 07/09/18 06/29/19 06/29/19 potassium chloride 10 mg PO BID 07/09/18 06/29/19 06/29/19 quetiapine 50 mg PO HS 07/09/18 06/29/19 06/28/19 sennosides-docusate sodium 1 tab PO QAM 07/09/18 06/29/19 06/29/19 warfarin 1.5 - 3 mg PO UD 07/09/18 06/29/19 06/28/19 3 mg aspirin 81 mg PO BID 07/23/18 06/29/19 06/29/19 08:00 levothyroxine 25 mcg PO QAM 03/02/19 06/29/19 06/29/19 metoprolol tartrate 25 mg PO BID 03/02/19 06/29/19 06/29/19 oxycodone 5 mg PO Q4 PRN 03/02/19 06/29/19 Unknown amlodipine 5 mg PO QDL 04/16/19 06/29/19 06/28/19 lisinopril 40 mg PO QDL 04/16/19 06/29/19 06/28/19 fluocinolone acetonide oil 0.01 % OTIC (EAR) DAILY PRN 06/29/19 06/29/19 Unknown Active Medications Generic Name Dose Route Start Last Admin Trade Name Freq PRN Reason Stop Dose Admin Atorvastatin Calcium 40 mg 06/29/19 21:00 06/29/19 21:08 Lipitor PO 07/29/19 20:59 40 mg HS ZACHERY Administration Fluticasone Propionate 1 sprays 06/29/19 21:00 06/30/19 08:33 Flonase WOJCIECH 07/29/19 20:59 1 sprays BID ZACHERY Administration Levothyroxine Sodium 25 mcg 06/30/19 06:30 06/30/19 06:04 Synthroid PO 07/30/19 06:29 25 mcg DAILYBB ZACHERY Administration Metoprolol Tartrate 25 mg 06/30/19 08:00 06/30/19 08:32 Lopressor PO 07/30/19 07:59 25 mg BID@0800,1200 ZACHERY Administration Quetiapine Fumarate 50 mg 06/29/19 21:00 06/29/19 21:09 Seroquel PO 07/29/19 20:59 50 mg HS ZACHERY Administration NPO Date Last Intake of Fluids: 06/30/19 Time Last Intake of Fluids: 00:00 Last Intake of Fluids Comment: prep Date Last Intake of Solids: 06/29/19 Time Last Intake of Solids: 08:00 Past Medical History Medical History Aortic root aneurysm (Chronic) "s/p repair" Atrial fibrillation (Chronic) BPH (benign prostatic hyperplasia) CAD (coronary artery disease) (Chronic) "cath 2016 - mild, non obstructive" Chronic anticoagulation (Chronic) GERD (gastroesophageal reflux disease) (Chronic) Hearing deficit HLD (hyperlipidemia) (Chronic) HTN (hypertension) (Chronic) Hypothyroidism ICH (intracerebral hemorrhage) (Resolved) 2012 (PT CAN NOT REMEMBER DETAILS) Past Family History Family History Father Hypertension Mother Heart disease Diabetes Past Surgical History Surgical History H/O aortic valve replacement (Chronic) 2 YEARS AGO [facility]AMES H/O arthroscopy of knee (Chronic) H/O hemorrhoidectomy (Chronic) H/O knee surgery RT H/O maze procedure (Chronic) History of colonoscopy History of esophagogastroduodenoscopy (EGD) History of right cataract extraction History of thyroidectomy, subtotal THYROID NODULE History of tooth extraction Hx of hemorrhoidectomy S/P TURP (Chronic) Social History Smoking Status: Former smoker tobacco type: cigarettes Do You Dip or Chew Tobacco: No Smoking End Date: Hx Alcohol Use: Yes Alcohol type: beer alcohol intake frequency: a few times a month Hx Substance Use: No substance use type: does not use Physical Exam Vital Signs Last Vital Signs Temp 36.9 C 06/30/19 11:21 Pulse 70 06/30/19 11:21 Resp 16 06/30/19 11:21 BP 163/116 H 06/30/19 11:21 Pulse Ox 96 06/30/19 11:21 Testing Laboratory Results 06/30/19 06:02 06/30/19 06:02 PT 17.2 Seconds (9.0-12.0) H 06/30/19 06:02 INR 1.7 (0.9-1.1) H 06/30/19 06:02 APTT 33.5 Seconds (21.0-31.0) H 06/29/19 12:45 Blood Type O Positive 06/29/19 13:18 Antibody Screen NEGATIVE 06/29/19 13:18
--- NOTE | 2019-06-30 14:49 | Discharge Summary ---
Date of Service June 30, 2019 Admission HPI Per Admitting Provider 74-year-old man presents with hematochezia since (5 days ago). He reports having bright red blood that is sometimes dark without clots approximately 2-3 times a day. He denies any lightheadedness or dizziness. He denies any nausea or vomiting and has been tolerating p.o. without issue with his last meal being breakfast. He last had 2 BMs this morning, one of which had no solid material but only bright red blood seen in the toilet. He denies any abdominal pain but does report some right flank tightness that occurs just before having a bowel movement, improving/resolving after he goes. This has b een present since , also. He denies any palpitations, chest pain, abdominal pain, UTI symptoms, will weight gain or any other symptoms at this time. He recently underwent an upper endoscopy on 01/26/2019 which was normal except for a benign adenoma that was removed. On 11/05/2017 he had some hematochezia and underwent a flexible sigmoidoscopy at that time revealing hemorrhoids and a 2 mm rectal polyp which was removed. There was also a visible vessel at the dentate line that was oozing at that time and was clipped, felt likely related to prior hemorrhoid surgery. Since that time he denies any issues with bleeding. GI was consulted and is planning a colonoscopy tomorrow. He is on ASA 81 and coumadin with an INR 1.9. Principal Diagnosis GI BLEED /BRIGHT RED BLOOD PRE RECTUM/HEMORRHOIDS-RESOLVED Discharge Exam Constitutional WD/WN, vitals as above well groomed, cooperative and comfortable Eyes PERRL, conjunctivae normal, anicteric sclerae ENMT external ear and nose normal, oropharynx normal Mouth: no TMJ abnormality Mallampati Class: II Neck normal visual inspection Respiratory normal respiratory effort, lungs clear to auscultation normal respiratory effort Auscultation: lungs clear to auscultation bilaterally Cardiovascular RRR, no murmur, no edema Rate/Rhythm: regular rate and regular rhythm Heart Sounds: no murmur Gastrointestinal (Abdomen) normal bowel sounds, soft, nontender, no hepatosplenomegaly Skin no rashes, warm and dry no jaundice Psychiatric A+Ox3, euthymic affect Lymphatic no lymphedema Discharge Data Allergies Allergy/AdvReac Type Severity Reaction Status Date / Time No Known Allergies Allergy Verified 06/29/19 14:10 Consultations 06/29/19 13:26 ED Decision to Admit Stat 06/29/19 15:39 Consult Gastroenterology Routine Procedures Performed Operation Date: 06/30/19 15:30 Actual Procedures p Colonoscopy - Asaf Jaime MD Hospital Course (1) Hematochezia: Possible hemorrhoidal bleed H&H stable despite bleeding for for last 5 days. No further episode of bleeding per rectum, H&H stable, no change in hemodynamics Status post colonoscopy today by Mars KAUR, appreciate input Noted to have hemorrhoids only No endoscopic procedure indicated, does not need any GI evaluation outpatient Diet advanced, tolerating well Aspirin and Coumadin resumed Patient is counseled for stool softener(takes MiraLAX daily) Use Anusol cream twice daily for at least 3-4 weeks, then as needed (2) Paroxysmal atrial fibrillation: Status post Maze procedure. Continue metoprolol, Coumadin resumed (3) Chronic anticoagulation: Continue Coumadin (4) H/O aortic valve replacement: The patient has a history of bioprosthetic aortic valve and mitral valve replacements with aortic root/ascending aortic repair in 2015. He had a stable echo in July 2018. The patient has atrial fibrillation with no history of CVA. Coumadin resumed on discharge (5) H/O mitral valve replacement: Plan as above. (6) CAD (coronary artery disease): Stable, continue medical management with lisinopril, metoprolol. Aspirin resumed on discharge (7) DVT prophylaxis: SCD and teds, patient is encouraged to ambulate Full code as discussed with patient on admission. Disposition: Stable to be discharged home today Family physician follow-up with Dr. ortega on 07/05/2019 at 11:05 AM Total Time Total Time Spent Total Time Spent (In Minutes): Approximately 35 minutes Total Time Includes: Examination of the Patient, Discharge Planning, Medication Reconciliation and Communication With Other Providers Discharge Plan Discharge Items Patient Disposition: Home - Self-Care Reason For Visit: RECTAL BLEEDING Discharge Diagnosis: GI BLEED /BRIGHT RED BLOOD PRE RECTUM/HEMORRHOIDS-RESOLVED Activity: Resume your previous activity Non-emergency contact: Primary Care Provider Call non-emergency contact if: you have any medication questions Follow-up/Referrals: Emigdio Lao MD [Primary Care Provider] - 07/05/19 11:05 am Diet: Heart Healthy Addtl Attending Provider Instructions: HOSPITAL FOLLOW UP WITH FAMILY PHYSICIAN DR ORTEGA ON 07/05/19 @ 11: 05 AM YOUR COLONOSCOPY SHOWS HEMORRHOIDS -CAUSING THE BLEEDING DRINK PLENTY OF FLUID , ADD EXTRA FIBERS IN YOUR DIET ( VEGETABLES/FRUITS ) TO PREVENT CONSTIPATION WHICH CAN CAUSE HEMORRHOIDS TO BLEED USE ANUSOL CREAM ( OVER THE COUNTER TWICE DAILY FOR 4 WEEKS ) THEN NEEDED FOR BLEEDING /PAIN AT THE RECTAL AREA Pending Studies at Discharge: No Stand-Alone Forms: My [facility], Smoking Cessation Medications and DC Order Prescriptions: New hydrocortisone [Anusol-HC] 2.5 % cream with perineal applicator 1 appln PA Q12H Qty: 28 RF: 0 Continued furosemide 40 mg tablet 40 mg PO QAM RF: 0 atorvastatin 40 mg tablet 40 mg PO HS RF: 0 sennosides-docusate sodium 8.6-50 mg tablet 1 tab PO QAM RF: 0 potassium chloride 20 mEq tablet,ER particles/crystals 10 mg PO BID RF: 0 fluticasone propionate 50 mcg/actuation spray,suspension 1 spray Intranasal BID RF: 0 quetiapine 50 mg tablet 50 mg PO HS RF: 0 warfarin 3 mg tablet 1.5 - 3 mg PO UD RF: 0 polyethylene glycol 3350 17 gram Powder In Packet 1 packet PO QAM RF: 0 aspirin 81 mg Tablet,Delayed Release (Dr/Ec) 81 mg PO BID RF: 0 levothyroxine 25 mcg tablet 25 mcg PO QAM RF: 0 oxycodone 5 mg Tablet 5 mg PO Q4 PRN (Reason: Pain) RF: 0 metoprolol tartrate 25 mg tablet 25 mg PO BID RF: 0 amlodipine 5 mg Tablet 5 mg PO QDL RF: 0 lisinopril 40 mg tablet 40 mg PO QDL RF: 0 fluocinolone acetonide oil 0.01 % Drops 0.01 % OTIC (EAR) DAILY PRN (Reason: Itching) RF: 0 Discharge Orders: Discharge Order (Routine); Ordered 06/30/19 Ordered By: Seda Nuñez Admission Data Admit Date/Time: 06/29/19 14:15 Attending Provider: Seda Nuñez Admit Provider: Miladys Rowe Primary Care Provider: Emigdio Lao Other Providers: Miladys Rowe ; Asaf Jaime Other Interventions: Discharge Summary Assessment (RN) Last Done: 06/30/19 13:21
[2019-06-30] MEDS ORDERED: POTASSIUM CHLORIDE 20 MEQ TABCR PO ONE (15:00)
[2019-07-01] MEDS ORDERED: PSYLLIUM 58.6% POWDER PACKET PO SCH (09:00)
== END 2019-06-30 15:37 | disposition home or self-care (01) | DRG 379 ==
LOC: ED 11:43 → 2N 14:15 → SUATTDRO 14:15 → 2N 15:00